=== PATIENT | male | born 1945 | race Caucasian/White ===

== ENCOUNTER 2018-05-18 06:38 | Inpatient (IN) | payer OTHER ==
[2018-05-18] MEDS ORDERED: NITROGLYCERIN 1 GM PKT TD ONE (06:39)
[2018-05-18] MEDS ORDERED: ALBUTEROL 2.5 MG/3 ML NEB SOL ONE (06:41)
[2018-05-18] MEDS ORDERED: NA CHLORIDE 0.9% 1,000 ML ONE (06:42)
[2018-05-18] MEDS ORDERED: IPRATROPIUM BROM 0.5MG/2.5ML ONE (06:42)
[2018-05-18] MEDS ORDERED: FUROSEMIDE 40 MG/4 ML VIAL ONE (06:42)
[2018-05-18] MEDS ORDERED: MORPHINE 4 MG/ML SYR ONE (06:42)
[2018-05-18] MEDS ORDERED: RSI MEDICATION KIT IV ONE (06:43)
[2018-05-18] MEDS ORDERED: ONDANSETRON 4 MG/2 ML VIAL ONE (06:43)
[2018-05-18] MEDS ORDERED: ASPIRIN 81 MG CHEWABLE TABLET ONE (06:43)
[2018-05-18] MEDS ORDERED: Nicardipine/NS 25 MG/250 ML KIT IV ONE (06:51)
[2018-05-18 07:21] LABS: Arterial Blood Carboxyhemoglob 0.7 % (0-1.5); Blood Gas Oxyhemoglobin 89.4 % (94-97)
[2018-05-18 07:23] LABS: Absolute Lymphocytes (CBC) 2.5 K/uL (0.7-4.9); Absolute Monocytes 0.6 K/uL (0.1-1.3); Basophils % 0.7 % (0-1.3); Eosinophils % 0.6 % (0-4.4); Hematocrit 47.1 % (39.6-49.0); Lymphocytes % 30.3 % (15.3-44.8); MCH 29.7 pg (27.0-35.0); MPV 11.5 fL (7.6-11.3); Monocytes % 7.1 % (3.3-12.3); RBC Red Blood Cell Count 5.24 M/uL (4.33-5.43)
[2018-05-18 07:27] LABS: Protime INR 1.1
[2018-05-18 07:38] LABS: Albumin 3.7 g/dL (3.4-5.0); Bilirubin Direct 0.3 mg/dL (0-0.2); CKMB Creatine Kinase MB 1.9 ng/mL (0.3-3.6); Magnesium 2.7 mg/dL (1.8-2.4); Potassium 3.7 mmol/L (3.5-5.1); Protein, Total 7.5 g/dL (6.4-8.2)
--- NOTE | 2018-05-18 08:05 | EDPHYS ---
Physician Documentation [facility] Name: Mumtaz Gonzales Age: 72 yrs Sex: Male : 1945 Arrival Date: 05/18/2018 Time: 06:46 Bed 3 Private MD: ED Physician Mack Orozco HPI: 05/18 06:49 This 72 yrs old Male presents to ER via Unassigned with complaints of SOB. snw 06:49 The patient has shortness of breath at rest. Onset: The symptoms/episode began/occurred snw 4 day(s) ago, and became worse this morning. Duration: The symptoms are continuous. The patient's shortness of breath is aggravated by talking, is alleviated by nothing. Associated signs and symptoms: Pertinent positives: chest pain, diaphoresis, nausea. Severity of symptoms: At their worst the symptoms were incapacitating in the emergency department the symptoms are unchanged. The patient has experienced similar episodes in the past. The patient has been recently seen by a physician: with similar presenting complaints. Intubated one month ago. Historical: - Allergies: 07:13 NKDA; bb - Home Meds: 08:10 atorvastatin 80 mg Oral tab 1 tab once daily [Active]; carvedilol 25 mg oral tab daily sv [Active]; valsartan 80 mg Oral tab 1 tab once daily [Active]; Lasix 80 mg Oral tab 1 tab 2 times per day [Active]; - PMHx: 07:13 CHF; COPD; Hyperlipidemia; Myocardial infarction; bb - Immunization history:: Adult Immunizations unknown. - Ebola Screening: : No symptoms or risks identified at this time. - Social history:: Smoking status: Patient/guardian denies using tobacco. ROS: 06:49 Eyes: Negative for injury, pain, redness, and discharge, ENT: Negative for injury, snw pain, and discharge, Neck: Negative for injury, pain, and swelling. 06:49 Abdomen/GI: Negative for abdominal pain, nausea, vomiting, diarrhea, and constipation, Back: Negative for injury and pain, : Negative for injury, bleeding, discharge, and swelling, MS/Extremity: Negative for injury and deformity. 06:49 Neuro: Negative for headache, weakness, numbness, tingling, and seizure, Psych: Negative for depression, anxiety, suicide ideation, homicidal ideation, and hallucinations. 06:49 Constitutional: Positive for malaise. 06:49 Cardiovascular: Positive for a. fib with RVR, chest pain. 06:49 Respiratory: Positive for shortness of breath, at rest. 06:49 Skin: Positive for diaphoresis. Exam: 06:49 Head/Face: Normocephalic, atraumatic. Eyes: Pupils equal round and reactive to light, snw extra-ocular motions intact. Lids and lashes normal. Conjunctiva and sclera are non-icteric and not injected. Cornea within normal limits. Periorbital areas with no swelling, redness, or edema. ENT: Nares patent. No nasal discharge, no septal abnormalities noted. Tympanic membranes are normal and external auditory canals are clear. Oropharynx with no redness, swelling, or masses, exudates, or evidence of obstruction, uvula midline. Mucous membranes moist. Neck: Trachea midline, no thyromegaly or masses palpated, and no cervical lymphadenopathy. Supple, full range of motion without nuchal rigidity, or vertebral point tenderness. No Meningismus. Chest/axilla: Normal chest wall appearance and motion. Nontender with no deformity. No lesions are appreciated. 06:49 Abdomen/GI: Soft, non-tender, with normal bowel sounds. No distension or tympany. No guarding or rebound. No evidence of tenderness throughout. 06:49 Back: No spinal tenderness. No costovertebral tenderness. Full range of motion. 06:49 Constitutional: The patient appears anxious, obese, in obvious distress, obviously ill, pale, uncomfortable. 06:49 Cardiovascular: Rate: tachycardic, Rhythm: irregularly irregular, Heart sounds: normal. 06:49 Respiratory: severe repiratory distress is noted, Respirations: labored breathing, accessory muscle usage, paradoxical chest movement, prolonged exhalation, intercostal retractions, shallow respirations, that is severe. 06:49 Abdomen/GI: Inspection: obese Bowel sounds: diminished. 06:49 Skin: Appearance: Color: dusky, Temperature: cool, Moisture: diaphoretic, petechiae, not noted, diaphoresis is noted. 06:49 Neuro: Mentation: obtunded second to distress, seizure activity, is not displayed by the patient. Vital Signs: 06:40 BP 223 / 116; Pulse 114; Resp 36; Pulse Ox 92% on CPAP; bb 07:03 BP 168 / 80; Pulse 95; Pulse Ox 91% on 100% BiPAP; sv 07:05 BP 163 / 82; Pulse 96; Resp 26; Pulse Ox 91% on 100% BiPAP; sv 07:10 BP 163 / 77; Pulse 95; Resp 23; Pulse Ox 91% on 100% BiPAP; sv 07:25 BP 130 / 73; Pulse 97; Resp 24; Pulse Ox 91% on 100% BiPAP; sv 07:32 Temp 96.9(A); sv 07:45 BP 117 / 56; Pulse 98; Resp 24; Pulse Ox 95% on 100% BiPAP; sv 08:27 BP 98 / 64; Pulse 100; Resp 24; Pulse Ox 95% on 100% BiPAP; sv 08:35 BP 112 / 62; Pulse 101; Resp 24; Pulse Ox 96% on BiPAP; tw2 08:59 BP 122 / 69; Pulse 98; Resp 24; Pulse Ox 96% on BiPAP; tw2 09:15 BP 110 / 79; Pulse 100; Pulse Ox 96% on 100% BiPAP; sv 09:23 Pulse Ox 94% on 50% BiPAP; sv 09:45 BP 105 / 74; Pulse 86; Resp 22; Pulse Ox 94% on BiPAP; tw2 10:07 Pulse 88; Resp 24; Pulse Ox 95% on 50% BiPAP; sv 10:28 BP 103 / 67; Pulse 82; Resp 15; Pulse Ox 95% on 50% BiPAP; sv 09:23 15/8, rate-12. Setting changed by Suri from RT sv MDM: 06:55 Data reviewed: vital signs, nurses notes. Data interpreted: Pulse oximetry: on Bipap is snw 91 %. Interpretation: hypoxia. Plan: will plan to intubate. Counseling: I had a detailed discussion with the patient and/or guardian regarding: the historical points, exam findings, and any diagnostic results supporting the discharge/admit diagnosis, the presence of at least one elevated blood pressure reading (>120/80) during this emergency department visit, lab results, radiology results, the need for further work-up and treatment in the hospital. Response to treatment: the patient's symptoms have mildly improved after treatment. 06:58 Patient medically screened. snw 07:07 ED course: pt more alert, eyes open, responsive to questions, no diaphoresis. snw 08:02 Physician consultation: Twin Greco DO was called at 07:45, was contacted at 07:45, snw regarding admission, to the ICU. 05/18 06:49 Order name: Basic Metabolic Panel; Complete Time: 07:38 snw 05/18 06:49 Order name: CBC with Diff; Complete Time: 07:36 snw 05/18 06:49 Order name: Ckmb; Complete Time: 07:38 snw 05/18 06:49 Order name: CPK; Complete Time: 07:38 snw 05/18 06:49 Order name: LFT's; Complete Time: 07:38 snw 05/18 06:49 Order name: Magnesium; Complete Time: 07:38 snw 05/18 06:49 Order name: NT PRO-BNP; Complete Time: 07:38 snw 05/18 06:49 Order name: PT-INR; Complete Time: 07:36 snw 05/18 06:49 Order name: Ptt, Activated; Complete Time: 07:36 snw 05/18 06:49 Order name: Troponin (emerg Dept Use Only); Complete Time: 07:45 snw 05/18 06:49 Order name: Blood Culture Adult (2) snw 05/18 06:55 Order name: TS; Complete Time: 08:56 snw 05/18 06:55 Order name: TSH; Complete Time: 08:02 snw 05/18 07:20 Order name: ABG Arterial Blood Gas; Complete Time: 07:36 EDMS 05/18 06:49 Order name: XRAY Chest (1 view); Complete Time: 09:42 snw 05/18 06:49 Order name: BIPAP snw 05/18 07:21 Order name: Lactate; Complete Time: 08:02 bb 05/18 07:21 Order name: Lactate snw 05/18 07:21 Order name: Procalcitonin; Complete Time: 08:10 snw 05/18 08:36 Order name: Urine Dipstick--Ancillary (enter results); Complete Time: 08:56 bd 05/18 08:49 Order name: ABO/RH no charge; Complete Time: 08:56 EDMS 05/18 09:06 Order name: Chest Single View XRAY snw 05/18 09:52 Order name: T4 Free; Complete Time: 09:52 EDMS 05/18 10:57 Order name: RAD; Complete Time: 10:58 EDMS 05/18 06:49 Order name: EKG; Complete Time: 06:50 snw 05/18 06:49 Order name: Cardiac monitoring; Complete Time: 07:21 snw 05/18 06:49 Order name: EKG - Nurse/Tech; Complete Time: 07:55 snw 05/18 06:49 Order name: IV Saline Lock; Complete Time: 07:13 snw 05/18 06:49 Order name: Labs collected and sent; Complete Time: 07:13 snw 05/18 06:49 Order name: O2 Per Protocol; Complete Time: 07:13 snw 05/18 06:49 Order name: O2 Sat Monitoring; Complete Time: 07:13 snw 05/18 06:49 Order name: Urine Dipstick-Ancillary (obtain specimen); Complete Time: 08:29 snw 05/18 07:38 Order name: Montelongo; Complete Time: 08:29 snw 05/18 07:38 Order name: Misc. Order: wean cardene; Complete Time: 07:52 snw Administered Medications: Discontinued: Cardene 5 mg/hr IV at calculated rate continuous; 5mg/hr 06:45 Drug: Lasix 40 mg Route: IVP; Site: left wrist; bb 07:54 Follow up: Response: No adverse reaction sv 06:45 Drug: Zofran 4 mg Route: IVP; Site: left wrist; bb 07:53 Follow up: Response: No adverse reaction sv 06:46 Drug: Albuterol - atroVENT (3:1) (2.5 mg - 0.5 mg) 3 ml Route: Nebulizer; bb 07:54 Follow up: Response: No adverse reaction sv 06:47 Drug: morphine 4 mg Route: IVP; Site: left wrist; bb 07:54 Follow up: Response: No adverse reaction sv 06:49 Drug: Cardene 5 mg/hr Route: IV; Rate: calculated rate; Site: left wrist; bb 07:31 Follow up: Rate change 2.5 mg/hr sv 06:50 Drug: Nitro-Bid Ointment 2 % 1 inches Route: Transdermal; Site: anterior chest wall; aa1 06:58 CANCELLED (Duplicate Order): Cardene 5 mg/hr IV at Titrate continuous; 5mg/hr bb 07:21 Drug: Aspirin Chewable Tablet 324 mg Route: PO; bb 07:54 Follow up: Response: No adverse reaction sv Disposition: 06:55 Critical Care:. snw Disposition: 05/18/18 08:04 Hospitalization ordered by Twin Greco for Inpatient Admission. Preliminary diagnosis are Respiratory failure, unspecified with hypoxia, Unspecified systolic (congestive) heart failure. - Bed requested for Intensive Care Unit. - Status is Inpatient Admission. ss - Condition is Stable. - Problem is an acute exacerbation. - Symptoms have improved. UTI on Admission? No Critical care time excluding procedures: 06:55 Critical care time: Bedside Care: 20 minutes, Consultation: 20 minutes. Total time: 40 snw minutes Signatures: Dispatcher [employer] Franny House RN Erika Yusuf RN RN dw Kern, Alissa, RN RN aa1 Arcelia Rick, RAW MATERIAL HANDLER-C RAW MATERIAL HANDLER-Csnw Miranda Spaulding RN RN bb Hunter Tate MD MD rn [facility] Network[facility] garcia RN RN Corrections: (The following items were deleted from the chart) 06:58 06:55 Cardene 5 mg/hr IV at Titrate continuous; 5mg/hr ordered. snw bb 10:15 08:04 Hospitalization Ordered by Twin Greco DO for Inpatient Admission. Preliminary dw diagnosis is Respiratory failure, unspecified with hypoxia; Unspecified systolic (congestive) heart failure. Bed requested for Intensive Care Unit. Status is Inpatient Admission. Condition is Stable. Problem is an acute exacerbation. Symptoms have improved. UTI on Admission? No. snw 11:03 10:15 05/18/2018 08:04 Hospitalization Ordered by Twin Greco DO for Inpatient ss Admission. Preliminary diagnosis is Respiratory failure, unspecified with hypoxia; Unspecified systolic (congestive) heart failure. Bed requested for Intensive Care Unit. Status is Inpatient Admission. Condition is Stable. Problem is an acute exacerbation. Symptoms have improved. UTI on Admission? No. dw
--- NOTE | 2018-05-18 08:05 | ER ---
Nurse's Notes [facility] Name: Mumtaz Gonzales Age: 72 yrs Sex: Male : 1945 Arrival Date: 05/18/2018 Time: 06:46 Bed 3 Private MD: Diagnosis: Respiratory failure, unspecified with hypoxia;Unspecified systolic (congestive) heart failure Presentation: 05/18 06:45 Presenting complaint: EMS states: they were toned out for report of pt having SOB for bb several days worsening today, on their arrival pt's room air sat was 92% but on ride to ED pt worsened and they placed him on bipap. Transition of care: patient was not received from another setting of care. Onset of symptoms was May 18, 2018. Risk Assessment: Do you want to hurt yourself or someone else? Patient reports no desire to harm self or others. Initial Sepsis Screen: Does the patient meet any 2 criteria? RR > 20 per min. HR > 90 bpm. Yes Does the patient have a suspected source of infection? No. Patient's initial sepsis screen is negative. Care prior to arrival: Medication(s) given: Albuterol Neb x 1, Atrovent Neb x 1, solu-medrol 125 mg IV initiated. 20 GA, in the left antecubital area, Oxygen administered. via CPAP or BiPAP. 06:45 Method Of Arrival: EMS: [facility] 06:45 Acuity: SHERLY 1 bb Historical: - Allergies: 07:13 NKDA; bb - Home Meds: 08:10 atorvastatin 80 mg Oral tab 1 tab once daily [Active]; carvedilol 25 mg oral tab daily sv [Active]; valsartan 80 mg Oral tab 1 tab once daily [Active]; Lasix 80 mg Oral tab 1 tab 2 times per day [Active]; - PMHx: 07:13 CHF; COPD; Hyperlipidemia; Myocardial infarction; bb - Immunization history:: Adult Immunizations unknown. - Ebola Screening: : No symptoms or risks identified at this time. - Social history:: Smoking status: Patient/guardian denies using tobacco. Screenin:38 Abuse screen: Denies threats or abuse. Denies injuries from another. Nutritional sv screening: No deficits noted. Tuberculosis screening: No symptoms or risk factors identified. Fall Risk No fall in past 12 months (0 pts). No secondary diagnosis (0 pts). IV access (20 points). Ambulatory Aid- None/Bed Rest/Nurse Assist (0 pts). Gait- Normal/Bed Rest/Wheelchair (0 pts) Mental Status- Oriented to own ability (0 pts). Total Parker Fall Scale indicates No Risk (0-24 pts). Assessment: 06:50 Reassessment: RT, MD, and TRANSCRIPTION MANAGER at bedside with pt. Pt placed on BiPAP. Attempting to gain aa1 IV access on pt. General: Appears distressed, uncomfortable, Behavior is cooperative, appropriate for age. Neuro: Level of Consciousness is awake, alert, obeys commands. Respiratory: Respiratory effort is labored, gasping, Respiratory pattern is tachypnea. Derm: Skin is diaphoretic, Skin is pale. 07:20 General: Appears uncomfortable, obese, Behavior is calm, cooperative, appropriate for sv age. Pain: Denies pain. Neuro: Level of Consciousness is awake, alert, obeys commands, Oriented to person, place, time, situation, Moves all extremities. Cardiovascular: Heart tones S1 S2 present Patient's skin is warm and dry. Pulses are 3+ in right radial artery and left radial artery Edema is 3+ to left midcalf, left ankle, right midcalf and right ankle pitting to left midcalf, left ankle, right midcalf and right ankle. Respiratory: Airway is patent Respiratory effort is labored, Respiratory pattern is tachypnea Breath sounds are clear bilaterally. Breath sounds are diminished in left posterior lower lobe and right posterior lower lobe. Derm: Skin is clammy, Skin is pale. 07:49 Reassessment: Patient and/or family updated on plan of care and expected duration. Pain sv level reassessed. Patient is alert, oriented x 3, equal unlabored respirations, skin warm/dry/pink. Patient states feeling better. Patient states symptoms have improved. 07:55 Reassessment: Nitropaste removed. sv 08:45 Reassessment: Dr Greco at bedside. sv 09:25 Reassessment: Patient and/or family updated on plan of care and expected duration. Pain sv level reassessed. Patient is alert, oriented x 3, equal unlabored respirations, skin warm/dry/pink. Patient states feeling better. Patient states symptoms have improved. 09:29 Reassessment: Repeat chest xray being done. sv Vital Signs: 06:40 BP 223 / 116; Pulse 114; Resp 36; Pulse Ox 92% on CPAP; bb 07:03 BP 168 / 80; Pulse 95; Pulse Ox 91% on 100% BiPAP; sv 07:05 BP 163 / 82; Pulse 96; Resp 26; Pulse Ox 91% on 100% BiPAP; sv 07:10 BP 163 / 77; Pulse 95; Resp 23; Pulse Ox 91% on 100% BiPAP; sv 07:25 BP 130 / 73; Pulse 97; Resp 24; Pulse Ox 91% on 100% BiPAP; sv 07:32 Temp 96.9(A); sv 07:45 BP 117 / 56; Pulse 98; Resp 24; Pulse Ox 95% on 100% BiPAP; sv 08:27 BP 98 / 64; Pulse 100; Resp 24; Pulse Ox 95% on 100% BiPAP; sv 08:35 BP 112 / 62; Pulse 101; Resp 24; Pulse Ox 96% on BiPAP; tw2 08:59 BP 122 / 69; Pulse 98; Resp 24; Pulse Ox 96% on BiPAP; tw2 09:15 BP 110 / 79; Pulse 100; Pulse Ox 96% on 100% BiPAP; sv 09:23 Pulse Ox 94% on 50% BiPAP; sv 09:45 BP 105 / 74; Pulse 86; Resp 22; Pulse Ox 94% on BiPAP; tw2 10:07 Pulse 88; Resp 24; Pulse Ox 95% on 50% BiPAP; sv 10:28 BP 103 / 67; Pulse 82; Resp 15; Pulse Ox 95% on 50% BiPAP; sv 09:23 15/8, rate-12. Setting changed by Suri from RT sv ED Course: 06:40 Arm band placed on Patient placed in an exam room, on a stretcher, on awake overnight monitor, bb on pulse oximetry. 06:45 Missed attempt(s): 18 gauge in right antecubital area. Bleeding controlled, band aid aa1 applied, catheter tip intact. 06:46 Patient arrived in ED. bb 06:50 Triage completed. bb 06:50 Missed attempt(s): 18 gauge in right EJ by Dr. Orozco. aa1 06:50 Missed attempt(s): 20 gauge in right antecubital area. lp1 06:55 Initial lab(s) drawn, by me. Inserted saline lock: 20 gauge in left antecubital area, aa1 using aseptic technique. Blood collected. 06:57 Hunter Tate MD is Attending Physician. snw 06:57 Mack Orozco MD is Attending Physician. snw 06:58 Arcelia Rick FNP-C [facility]. snw 07:00 X-ray completed. Portable x-ray completed in exam room. Patient tolerated procedure jb2 well. 07:00 Report given to Kelsey Sumner RN \T\ Franny Langston RN. aa1 07:05 XRAY Chest (1 view) In Process Unspecified. EDMS 07:18 Initial lab(s) drawn, by me, sent to lab. Inserted saline lock: 20 gauge in right sv forearm, using aseptic technique. Blood collected. Flushed right forearm with 5 ml normal saline. 07:18 Patient has correct armband on for positive identification. Bed in low position. Call sv light in reach. Side rails up X2. youth nutritional monitor on. Pulse ox on. NIBP on. Door closed. Head of bed elevated. 07:29 Franny Langston, TARIK is Primary Nurse. sv 07:53 Lactate Sent. sv 07:53 BIPAP Sent. sv 08:02 Twin Greco DO is Hospitalizing Provider. snw 08:05 Montelongo cath inserted, using sterile technique, 16 Fr., by me, balloon inflated, to em1 gravity drainage, clamped. urine specimen collected. other Montelongo catheter clamped after pt voided 800 mL of urine. 09:36 X-ray completed. Portable x-ray completed in exam room. Patient tolerated procedure tm4 well. 10:45 No provider procedures requiring assistance completed. Patient admitted, IV remains in sv place. intact. Administered Medications: Discontinued: Cardene 5 mg/hr IV at calculated rate continuous; 5mg/hr 06:45 Drug: Lasix 40 mg Route: IVP; Site: left wrist; bb 07:54 Follow up: Response: No adverse reaction sv 06:45 Drug: Zofran 4 mg Route: IVP; Site: left wrist; bb 07:53 Follow up: Response: No adverse reaction sv 06:46 Drug: Albuterol - atroVENT (3:1) (2.5 mg - 0.5 mg) 3 ml Route: Nebulizer; bb 07:54 Follow up: Response: No adverse reaction sv 06:47 Drug: morphine 4 mg Route: IVP; Site: left wrist; bb 07:54 Follow up: Response: No adverse reaction sv 06:49 Drug: Cardene 5 mg/hr Route: IV; Rate: calculated rate; Site: left wrist; bb 07:31 Follow up: Rate change 2.5 mg/hr sv 06:50 Drug: Nitro-Bid Ointment 2 % 1 inches Route: Transdermal; Site: anterior chest wall; aa1 06:58 CANCELLED (Duplicate Order): Cardene 5 mg/hr IV at Titrate continuous; 5mg/hr bb 07:21 Drug: Aspirin Chewable Tablet 324 mg Route: PO; bb 07:54 Follow up: Response: No adverse reaction sv Output: 10:28 Urine: 375ml (Montelongo); Total: 375ml. sv Outcome: 08:04 Decision to Hospitalize by Provider. snw 10:46 Admitted to ICU accompanied by nurse, accompanied by tech, via stretcher, room 2, with sv oxygen, on monitor, with chart, Report called to Jaqui MONTANEZ 10:46 Condition: stable 10:46 Instructed on the need for admit. 11:03 Patient left the ED. ss Signatures: Dispatcher [employer] EDMS Franny Langston RN Shannon Almaguer RN RN aa1 Arcelia Rick, GOLF PROFESSIONAL-C GOLF PROFESSIONAL-Alliw Duran Loving jb2 Dalila Jasmine tm4 Miranda Spaulding RN RN bb Martinez, Eric em1 Lu Askew RN RN Julia Soni RN RN lp1 Kelsey Sumner RN RN tw2 Corrections: (The following items were deleted from the chart) 07:15 07:13 BP 223 / 116; Pulse 114bpm; Resp 36bpm; Pulse Ox 92% CPAP; bb bb 07:16 07:13 Triage completed. bb bb 07:58 07:20 Cardiovascular: Heart tones S1 S2 present Patient's skin is warm and dry. Pulses sv are 3+ in right radial artery and left radial artery sv
[2018-05-18 08:42] LABS: Urine Blood NEGATIVE (NEG); Urine Glucose NEGATIVE (NEG); Urine Protein 1+ (NEG); Urine Specific Gravity 1.015 (1.005-1.030); Urine pH 5.5 (5.0-7.0)
[2018-05-18] MEDS ORDERED: ONDANSETRON 4 MG/2 ML VIAL IV PRN (08:58)
[2018-05-18] MEDS ORDERED: IPRATROPIUM BROM 0.5MG/2.5ML NEB PRN (08:58)
[2018-05-18] MEDS ORDERED: ACETAMINOPHEN 500 MG TAB PO PRN (08:58)
[2018-05-18] MEDS ORDERED: ALBUTEROL 2.5 MG/3 ML NEB SOL NEB PRN ×2 (08:58→16:00)
[2018-05-18] MEDS ORDERED: ENOXAPARIN 40 MG/0.4 ML SQ SCH (09:00)
[2018-05-18] MEDS: FUROSEMIDE 40 MG/4 ML VIAL IV SCH ×2 (09:00→16:59)
--- NOTE | 2018-05-18 09:38 | RAD REPORT ---
EXAM DESCRIPTION: Valarie Single View05/18/2018 7:06 am CLINICAL HISTORY: Shortness of breath COMPARISON: October 2017 FINDINGS: Moderate bilateral patchy alveolar lung opacities are seen. The heart is mildly to modera tely enlarged. Small pleural effusions are suspected. IMPRESSION: Moderate bilateral patchy alveolar lung opacities probably represent pulmonary edema. Pn eumonia can also have this appearance as well.
[2018-05-18] MEDS ORDERED: NOREPINEPHRINE 4 MG in D5W 250 ML IV PRN (10:43)
--- NOTE | 2018-05-18 10:55 | P.HP ---
Certification for Inpatient Patient admitted to: Inpatient With expected LOS: >2 Midnights Patient will require the following post-hospital care: None Practitioner: I am a practitioner with admitting privileges, knowledge of patient current condition, hospital course, and medical plan of care. Services: Services provided to patient in accordance with Admission requirements found in Title 42 Section 412.3 of the Code of Federal Regulations Patient History Date of Service: 05/18/18 Primary Care Provider: PR Kari Reason for admission: Shortness of breath History of Present Illness: 72-year-old male presented to emergency room with shortness of breath. Patient was diaphoretic. Patient required BiPAP by EMS. EMS also gave the patient Lasix, aspirin, morphine. When the patient arrived to the ER the patient was hypertensive with a blood pressure of 223/116. Heart rate was 114. Patient was placed on BiPAP patient was immediately started on morphine and Cardene drip. Patient remained stable and improved with diuresis. It was reassess. Patient was able to get off Cardene in the emergency room. The social removed. Blood pressures improved to 1 17/56, heart rate 98. Respirations were at 24. He was satting 95% with BiPAP. Patient had reported some increased shortness of breath over the last several days. This led to this exacerbation. History of CHF, COPD, atrial fibrillation. I was asked to admit the patient. Patient currently stable this time. Patient will go to ICU. Patient denies any fever, chills. No significant cough congestion noted. Allergies No Known Allergies Allergy (Unverified 05/18/18 09:12) Home medications list reviewed: Yes Home Medications: Aspirin 1 tab PO DAILY 07/25/17 Rivaroxaban [Xarelto] 1 tab PO DAILY AT SUPPER 07/25/17 Amiodarone HCl [Pacerone] 1 tab PO DAILY #30 tablet 07/31/17 Atorvastatin Calcium [Lipitor] 80 mg PO DAILY 11/21/17 Carvedilol [Coreg*] 12.5 mg PO BID 11/21/17 Furosemide [Lasix] 80 mg PO BID 11/21/17 Valsartan [Diovan] 80 mg PO DAILY 11/21/17 - Past Medical/Surgical History Diabetic: No -: Congestive heart failure; ejection fraction of 25% -: COPD -: Hypertension -: Atrial fibrillation -: Cyst on the back,neck,chest -: Former tobacco use -: Morbid obesity Past Surgical History: Patient denies surgical history Psychosocial/ Personal History: Patient lives by himself - Family History Family History: Reviewed- Non-Contributory - Family History Father -: Other (see notes) Notes: TB - Social History Smoking Status: Former smoker Alcohol use: No CD- Drugs: No Caffeine use: Yes Place of Residence: Home Review of Systems General: Weakness, Malaise, As per HPI Eyes: Unremarkable ENT: Unremarkable Respiratory: Shortness of Breath, SOB with Excertion, As per HPI Cardiovascular: Paroxysmal Noc. Dyspnea, Edema Gastrointestinal: Unremarkable Genitourinary: Unremarkable Musculoskeletal: Unremarkable Integumentary: As per HPI Neurological: Unremarkable Lymphatics: Unremarkable Physical Examination - Physical Exam General: Alert, In no apparent distress, Oriented x3, Cooperative HEENT: Atraumatic, Normocephalic, Mucous membr. moist/pink Neck: Supple, No Thyromegaly Respiratory: Crackles/rales (Bilateral) Cardiovascular: Irregular heart rate/rhythm (Atrial fib) Gastrointestinal: Normal bowel sounds, Soft and benign, Non-distended, No ascites, No tenderness, No masses, No rebound, Other (Morbid obesity) Musculoskeletal: No erythema, No tenderness, No warmth Integumentary: No erythema, No warmth, No cyanosis, Tenderness/swelling (1 to 2 + pitting edema to the lower extremity bilateral) Neurological: Normal speech, Normal strength at 5/5 x4 extr, Normal tone, Normal affect - Studies Laboratory Data (last 24 hrs) 05/18/18 06:55: PT 13.0 H, INR 1.10, APTT 23.7 L 05/18/18 06:55: WBC 8.1, Hgb 15.6, Hct 47.1, Plt Count 225 05/18/18 06:55: Sodium 142, Potassium 3.7, BUN 22 H, Creatinine 1.50 H, Glucose 286 H, Magnesium 2.7 H, Total Bilirubin 1.0, AST 17, ALT 40, Alkaline Phosphatase 109 Assessment and Plan - Problems (Diagnosis) (1) Atrial fibrillation Current Visit: Yes Status: Chronic Plan: Will continue with rate control medication. Will provide DVT prophylaxis. Will check to see if the patient taking chronic anti coagulation therapy. Cardiology has been consulted to further assess Qualifiers: Atrial fibrillation type: chronic Qualified Code(s): I48.2 - Chronic atrial fibrillation (2) GERD (gastroesophageal reflux disease) Current Visit: Yes Status: Chronic Plan: Continue with PPI. Qualifiers: Esophagitis presence: esophagitis presence not specified Qualified Code(s) : K21.9 - Gastro-esophageal reflux disease without esophagitis (3) Dyspnea Onset Date: 07/27/17 Current Visit: No Status: Acute Plan: CHF and COPD exacerbation. Continue with diuresis. Will place on fluid restriction. Cardiology and pulmonology have been consulted. Will wean off BiPAP. Compliance with medication will be addressed Qualifiers: Dyspnea type: shortness of breath Qualified Code(s): R06.02 - Shortness of breath; R06.00 - Dyspnea, unspecified; R06.01 - Orthopnea (4) Pulmonary edema Onset Date: 05/11/17 Current Visit: No Status: Acute Plan: Continue as above. Will continue with diuresis. Qualifiers: Chronicity: acute Qualified Code(s): J81.0 - Acute pulmonary edema (5) CHF (congestive heart failure) Onset Date: 07/27/17 Current Visit: No Status: Acute Plan: Patient with acute on chronic CHF. Will continue with diuresis. Continue with Lasix. Cardiology consulted. Qualifiers: Qualified Code(s): I50.23 - Acute on chronic systolic (congestive) heart failure (6) COPD (chronic obstructive pulmonary disease) Onset Date: 07/27/17 Current Visit: No Status: Acute Plan: Acute COPD exacerbation. Will continue with medication Qualifiers: COPD type: COPD with acute exacerbation Qualified Code(s): J44.1 - Chronic obstructive pulmonary disease with (acute) exacerbation (7) Diabetes mellitus Onset Date: 07/27/17 Current Visit: No Status: Chronic Plan: Will check A1c. Will continue sliding scale. Qualifiers: Diabetes mellitus type: type 2 Diabetes mellitus detention insulin use: with detention use Diabetes mellitus complication status: without complication Qualified Code(s): E11.9 - Type 2 diabetes mellitus without complications; Z79.4 - residential (current) use of insulin; Z79.4 - residential ( current) use of insulin; Z79.4 - residential (current) use of insulin; Z79.4 - terminal operations manager (current) use of insulin (8) Hypertension Onset Date: 05/11/17 Current Visit: No Status: Chronic Plan: Continue medication. Will obtain and verify home medication Qualifiers: Hypertension type: essential hypertension Qualified Code(s): I10 - Essential (primary) hypertension (9) Obesity Onset Date: 07/27/17 Current Visit: No Status: Chronic Plan: Will assess BM Qualifiers: Obesity type: due to excess calories Obesity classification: adult class 1 (BMI 30 ? 34.9) Serious obesity comorbidity presence: with serious comorbidity Body mass index: BMI 30.0-30.9 (10) Chronic renal disease Current Visit: Yes Status: Acute Plan: Acute on chronic renal disease. Will monitor closely. Nephrology consulted Qualifiers: Chronic kidney disease stage: stage 3 (moderate) Qualified Code(s): N18.3 - Chronic kidney disease, stage 3 (moderate) (11) DENEEN (obstructive sleep apnea) Current Visit: Yes Status: Suspected Plan: Will have Pulmonary assess. Discharge Plan: Home Plan to discharge in: Greater than 2 days - Advance Directives Does patient have a Living Will: No Does patient have a Durable POA for Healthcare: No - Code Status/Comfort Care Code Status Assessed: Yes Time Spent Managing Pts Care (In Minutes): 55
--- NOTE | 2018-05-18 10:57 | RAD REPORT ---
EXAM DESCRIPTION: RAD - Chest Single View - 05/18/2018 9:38 am CLINICAL HISTORY: Progressive shortness of breath, congestion COMPARISON: May 18 TECHNIQUE: AP portable chest image was obtained 0925 hours . FINDINGS: Bilateral lung base pleural and parenchymal opacification present without substantial espinosa ge over the interval. Central vasculature and lung markings remain prominent. Heart size also slightl y enlarged. Trachea is midline. No pneumothorax. No acute aortic findings suspected. IMPRESSION: Bilateral lower lung field pleural and parenchymal opacification not significantly diffe rent from exam earlier in the day.
[2018-05-18] MEDS ORDERED: D50W 25 GM/50 ML SYRINGE IV PRN (11:03)
[2018-05-18] MEDS ORDERED: GLUCAGON 1 MG/VIAL IM PRN (11:03)
[2018-05-18] MEDS: INSULIN -REGULAR HUMAN 50 UNIT/0.5 ML ML SQ SCH ×3 (11:30→20:18)
--- NOTE | 2018-05-18 12:14 | EKG ---
Test Date: 2018-05-18 Test Time: 07:47:20 Interlocker Maintainer: LIZABETH MEASUREMENT RESULTS: Intervals: Rate: 97 PA: 144 QRSD: 128 QT: 456 QTc: 579 Roxie: P: 9 PA: 144 QRS: 9 T: 105 INTERPRETIVE STATEMENTS: Sinus rhythm with occasional premature ventricular complexes Nonspecific intraventricular block T wave abnormality, consider lateral ischemia Abnormal ECG Compared to ECG 11/20/2017 21:28:05 T-wave abnormality now present Possible ischemia now present Junctional rhythm no longer present Left anterior fascicular block no longer present Myocardial infarct finding no longer present Prolonged QT interval no longer present Electronically Signed On 05-18-18 12:11:49 CDT by Geo Cornelius
[2018-05-18 15:14] LABS: CKMB Creatine Kinase MB 3.4 ng/mL (0.3-3.6)
[2018-05-18] MEDS: METHYLPREDNISOLONE 40 MG INJ IV SCH (16:59)
[2018-05-18] MEDS: CARVEDILOL 25 MG TAB PO SCH (17:00)
--- NOTE | 2018-05-18 20:04 | RAD REPORT ---
EXAM DESCRIPTION: US - Renal Ultrasound-Complete - 05/18/2018 7:37 pm CLINICAL HISTORY: Acute kidney injury, chronic renal disease COMPARISON: April 2017 ultrasound FINDINGS: The right kidney measures 11.6 x 5.1 x 4.8 cm. The left kidney measures 12.0 x 6.2 x 5.0 cm. Cortical thickness is normal. Mild bilateral increased cortical echogenicity is present most like ly medical renal disease. No hydronephrosis or suspicious renal mass. Montelongo catheter is in place. Partially filled bladder shows no gross abnormality. IMPRESSION: No hydronephrosis or suspicious renal mass. Mild bilateral medical renal disease evident.
[2018-05-18] MEDS: ARFORMOTEROL TARTRATE 15 MCG/2 ML VIAL.NEB NEB SCH (20:16)
[2018-05-18 20:37] LABS: UR PROTEIN < 5 mg/dL (<11.9)
[2018-05-19] MEDS: METHYLPREDNISOLONE 40 MG INJ IV SCH ×3 (01:29→17:31)
--- NOTE | 2018-05-19 01:33 | CON ---
Date of Consultation: 05/18/2018 Reason For Consultation: Congestive heart failure. History Of Present Illness: Mr. Gonzales is a very sick man, he is 72, white male, has a history of sever e congestive heart failure, an ejection fraction was approximately 15% in July 2017 by heart veena terization and echocardiography. A cardiac catheterization on July 2017 which showed some diffuse disease in the left main, LAD, mostly distal disease and stenting of the circumflex to complete righ t coronary artery. He has a complete occlusion of his distal aorta. The case had to be done via lef t arm brachial approach. We decided he was very high risk for surgery considering his ejection fract ion, distal aortic disease, and coronary artery disease. He has been treated medically since and adrian arently has done well. He came in with a blood pressure of 223/110 and was found to be in CHF with C OPD exacerbation as well. He is improved after BiPAP and Lasix and inhalers. Initial blood gas was pO2 was 74, pCO2 was 29, and pH was 7.29 on BiPAP. He received a Cardene drip for his pressure befor e I saw him and his pressure when I saw him last was 103/67. He was in atrial fibrillation which is a chronic problem. Past Medical History: CHF, COPD, CAD, dyslipidemia, and DJD. Review of Systems: Negative. Social History: Negative. Family History: Noncontributory. Medications At Home: Diovan, Lipitor, Coreg, Lasix, and aspirin. Physical Examination: General: He was in moderate respiratory distress. Vital Signs: Stable. He was in sinus tachycardia. HEENT: Negative. Neck: Supple without any bruit, lymphadenopathy, or thyromegaly. No JVD. Chest: Revealed rales and expiratory wheezes. Cardiac: Revealed tachycardia with S3 gallops. Abdomen: Obese. Extremities: Revealed no clubbing, cyanosis, or edema with decreased pulses throughout. Laboratory Data: His BNP was 5734, troponin 0.05. Chest x-ray showed CHF. EKG showed sinus tach wi th PACs. Impression And Plan: 1.Acute exacerbation of chronic systolic congestive heart failure. 2.Acute exacerbation of chronic obstructive pulmonary disease. 3.Dyslipidemia. 4.Hypertension, poorly controlled. 5.Severe peripheral artery disease with complete occlusion of the distal aorta. 6.Severe coronary artery disease, being treated medically as he is very high risk for the surgery. I will continue the present regimen with inhalers, antibiotics, and IV Lasix. I agree with repeating an echocardiogram. I certainly do not plan to do any more invasive studies on Mr. Gonzales. We can cert ainly go up on the Coreg dose. It is felt that Entresto may be reasonable with him considering his r enal function. I am not so sure about Mr. Gonzales's compliance. I discussed the case further with Dr. Camille faulkner. SARAH/GISEL Voice ID: [id number] Report ID: [id number]
[2018-05-19 04:58] LABS: Absolute Lymphocytes (CBC) 0.4 K/uL (0.7-4.9); Absolute Monocytes 0.1 K/uL (0.1-1.3); Basophils % 0.8 % (0-1.3); Hematocrit 40.4 % (39.6-49.0); Lymphocytes % 5.7 % (15.3-44.8); MCH 29.8 pg (27.0-35.0); MCV 88.4 fL (80-100); MPV 11.1 fL (7.6-11.3); Monocytes % 1.8 % (3.3-12.3); RBC Red Blood Cell Count 4.57 M/uL (4.33-5.43)
[2018-05-19 05:29] LABS: Albumin 3.2 g/dL (3.4-5.0); Magnesium 2.6 mg/dL (1.8-2.4); Potassium 4.1 mmol/L (3.5-5.1); Protein, Total 6.4 g/dL (6.4-8.2)
[2018-05-19 05:37] LABS: Blood Morphology Comment NOT SEEN (NOT SEEN); Platelet Estimate ADEQ; Urine White Blood Cell Casts OK
[2018-05-19] MEDS: CARVEDILOL 25 MG TAB PO SCH (06:15)
--- NOTE | 2018-05-19 07:04 | RAD REPORT ---
EXAM DESCRIPTION: RAD - Chest Single View - 05/19/2018 6:08 am CLINICAL HISTORY: Shortness of breath COMPARISON: May 18 TECHNIQUE: AP portable chest image was obtained 0541 hours . FINDINGS: Left lower lung field shows slight improvement in aeration. Pleural effusion with infiltra te and/ or atelectasis in the right base has not improved. Cardiomegaly remains along with vascular e ngorgement. Trachea is in the midline. No pneumothorax. No gross bony abnormality seen. No acute aort ic findings suspected. IMPRESSION: Cardiomegaly along with vascular engorgement pleural effusion and lung base opacificatio n similar to comparison. Failure/ volume overload is favored.
[2018-05-19] MEDS: INSULIN -REGULAR HUMAN 50 UNIT/0.5 ML ML SQ SCH ×4 (07:30→21:00)
--- NOTE | 2018-05-19 08:02 | P.CNS ---
Date of Consult: 05/19/18 Primary Care Provider: [facility] Chief Complaint: Respiratory failure History of Present Illness: Patient is 72 years of age admitted with shortness of breath respiratory failure is currently on a BiPAP is also found to be hypertensive currently stable history of COPD CHF Denies any fever chills Allergies No Known Drug Allergies Allergy (Mild, Verified 05/18/18 20:17) NKA Home Medications: Atorvastatin Calcium [Lipitor] 80 mg PO DAILY 11/21/17 Carvedilol [Coreg*] 12.5 mg PO BID 11/21/17 Furosemide [Lasix] 80 mg PO BID 11/21/17 Valsartan [Diovan] 80 mg PO DAILY 11/21/17 - Past Medical/Surgical History Diabetic: No -: Congestive heart failure; ejection fraction of 25% -: COPD -: Hypertension -: Atrial fibrillation -: Cyst on the back,neck,chest -: Former tobacco use -: Morbid obesity Psychosocial/ Personal History: Patient lives by himself - Family History Father Medical History: Other (see notes) Notes: TB - Social History Smoking Status: Unknown if ever smoked Alcohol use: No CD- Drugs: No Caffeine use: Yes Place of Residence: Home Review of Systems is unable to be obtained Physical Examination Temp Pulse Resp BP Pulse Ox 97.1 F 64 13 129/71 94 05/19/18 04:00 05/19/18 07:00 05/19/18 07:00 05/19/18 07:00 05/19/18 07:00 General: Alert, Oriented x1, Cooperative HEENT: Atraumatic Neck: Supple Respiratory: Clear to auscultation bilaterally, Diminished, Friction rub Cardiovascular: Regular rate/rhythm, Normal S1 S2 Gastrointestinal: Normal bowel sounds, Soft and benign - Problems (1) Respiratory failure Onset Date: 05/11/17 Current Visit: No Status: Acute Plan: Patient is 72 years of age with a history of COPD admitted with respiratory failure he was intubated the year ago patient was hypoxic mildly hypercapnic mild acidosis chest x-ray shows cardiomegaly possible bilateral pleural effusions volume overload patient's BNP was significantly elevated echocardiogram done beginning of this year did show congestive heart failure continue with IV Lasix bronchodilators steroids had low-dose spironolactone echocardiogram is pending rule out pulmonary embolism empiric anticoagulation until pulmonary embolism has been ruled out Qualifiers: Chronicity: acute Respiratory failure complication: hypercapnia Qualified Code(s): J96.02 - Acute respiratory failure with hypercapnia
--- NOTE | 2018-05-19 08:09 | ECHO ---
HEIGHT: 5 ft 11 in WEIGHT: 231 lb 1.6 oz DATE OF STUDY: 05/18/[address]: Twin Grceo DO 2-DIMENSIONAL: YES M.MODE: YES DOPPLER: YES COLOR FLOW: YES TDS: YES PORTABLE: YES DEFINITY: BUBBLE STUDY: DIAGNOSIS: CONGESTIVE HEART FAILURE CARDIAC HISTORY: CATHERIZATION: NO SURGERY: NO PROSTHETIC VALVE: NO PACEMAKER: NO MEASUREMENTS (cm) DIASTOLIC (NORMALS) SYSTOLIC (NORMALS) IVSd 1.1 (0.6-1.2) LA Diam 4.6 (1.9-4.0) LVEF 35-40% LVIDd 4.1 (3.5-5.7) LVIDs 3.3 (2.0-3.5) %FS 20% LVPWd 1.3 (0.6-1.2) Ao Diam 3.0 (2.0-3.7) 2 DIMENSIONAL ASSESSMENT: RIGHT ATRIUM: NORMAL LEFT ATRIUM: NORMAL RIGHT VENTRICLE: NORMAL LEFT VENTRICLE: NORMAL SIZE TRICUSPID VALVE: NORMAL MITRAL VALVE: NORMAL PULMONIC VALVE: NORMAL AORTIC VALVE: NORMAL PERICARDIAL EFFUSION: NONE AORTIC ROOT: NORMAL LEFT VENTRICULAR WALL MOTION: MODERATE GLOBAL HYPOKINESIS. DOPPLER/COLOR FLOW: MILD TRICUSPID REGURGITATION COMMENTS: TECHNICALLY DIFFICULT STUDY. MODERATE GLOBAL HYPOKINESIS. EJECTION FRACTION 35-40%. LEFT ATRIAL ENLARGEMENT. MILD TRICUSPID REGURGITATION. TECHNOLOGIST: RADHA ACOSTA
[2018-05-19] MEDS: ARFORMOTEROL TARTRATE 15 MCG/2 ML VIAL.NEB NEB SCH ×2 (08:11→19:39)
[2018-05-19] MEDS: ASPIRIN EC 81 MG TAB PO SCH (08:22)
[2018-05-19] MEDS: FUROSEMIDE 40 MG/4 ML VIAL IV SCH ×2 (08:22→17:32)
[2018-05-19] MEDS: SPIRONOLACTONE 25 MG TABLET PO SCH ×2 (08:22→21:59)
[2018-05-19] MEDS ORDERED: APIXABAN 5 MG TABLET PO SCH (09:00)
--- NOTE | 2018-05-19 10:24 | RAD REPORT ---
EXAM DESCRIPTION: CT - Chest For Pe Angio - 05/19/2018 9:20 am CLINICAL HISTORY: Chest pain. Shortness of breath COMPARISON: Chest For Pe Angio dated 05/09/2017; Chest Single View dated 05/19/2018; Chest Single View dated 05/18/2018 TECHNIQUE: CT angiogram of the pulmonary arteries was performed with MIP. All CT scans are performed using dose optimization technique as appropriate and may include automated exposure control or mA/KV adjustment according to patient size. FINDINGS: No evidence of pulmonary thromboembolism. Suboptimal visualization of the thoracic aorta. Significant cardiomegaly. Mild interstitial pulmonary edema is seen with small bilateral pleural effusions. Opacities in both l vivian bases probably represent compressive atelectasis. No concerning bony finding. 17 mm mass involving the right adrenal gland noted likely an adenoma. IMPRESSION: No evidence of pulmonary thromboembolism. Mild CHF suspected with small bilateral pleural effusions.
--- NOTE | 2018-05-19 11:51 | P.PN ---
Subjective Date of Service: 05/19/18 Primary Care Provider: [facility] Chief Complaint: Respiratory failure Subjective: Improving (Patient improving. Patient using BiPAP at night. Patient on nasal cannula.) Physical Examination - Vital Signs Temperature: 97.1 F Blood Pressure: 117/58 Pulse: 63 Respirations: 11 Pulse Ox (%): 93 - Physical Exam General: Alert, In no apparent distress, Oriented x3, Cooperative HEENT: Atraumatic Neck: Supple Respiratory: Crackles/rales (Bilateral), Expiratory wheezes (To the bases bilateral improved) Cardiovascular: Irregular heart rate/rhythm (Atrial fibrillation, rate controlled) Gastrointestinal: Normal bowel sounds, Soft and benign, Non-distended, No tenderness, No masses, No rebound, No guarding Musculoskeletal: No erythema, No tenderness, No warmth Integumentary: No tenderness/swelling, No erythema, No warmth, No cyanosis Neurological: Normal speech, Normal strength at 5/5 x4 extr, Normal tone, Normal affect - Studies Microbiology Data (last 24 hrs): 05/18/18 07:35 Blood - Blood Anaerobic Blood Culture - Final 05/18/18 07:08 Blood - Blood Anaerobic Blood Culture - Final Medications List Reviewed: Yes Assessment & Plan - Problems (Diagnosis) (1) Atrial fibrillation Onset Date: 05/19/18 Current Visit: Yes Status: Chronic Plan: Rate controlled with medication. Echocardiogram shows ejection fraction of 35% . CHF better controlled. Will discuss with cardiology. Patient not a good candidate for chronic anti coagulation therapy likely due to noncompliance and fall risk. Will continue with DVT prophylaxis. Qualifiers: Atrial fibrillation type: chronic Qualified Code(s): I48.2 - Chronic atrial fibrillation (2) GERD (gastroesophageal reflux disease) Onset Date: 05/19/18 Current Visit: Yes Status: Chronic Plan: Continue with PPI. Qualifiers: Esophagitis presence: esophagitis presence not specified Qualified Code(s) : K21.9 - Gastro-esophageal reflux disease without esophagitis (3) Dyspnea Onset Date: 07/27/17 Current Visit: No Status: Acute Plan: Secondary to CHF and COPD exacerbation. Will continue to wean off BiPAP. Continue diuresis. Ejection fraction 35%. Will educate on CHF and COPD. Will discuss further with cardiology and pulmonology. Once the patient is able to be transferred to the floor then will have physical therapy assess. Patient likely requires skilled placement. Patient is agreeable to this at discharge. Anticipate continued hospitalization for the next potential 3-5 days. Qualifiers: Dyspnea type: shortness of breath Qualified Code(s): R06.02 - Shortness of breath; R06.00 - Dyspnea, unspecified; R06.01 - Orthopnea (4) Pulmonary edema Onset Date: 05/11/17 Current Visit: No Status: Acute Plan: Continue as above. Will continue with diuresis. Qualifiers: Chronicity: acute Qualified Code(s): J81.0 - Acute pulmonary edema (5) CHF (congestive heart failure) Onset Date: 07/27/17 Current Visit: No Status: Acute Plan: Patient with acute on chronic CHF. Continue diuresis. Aldactone added by pulmonology. Ejection fraction 35%. Will discuss with pulmonology and Cardiology. Qualifiers: Qualified Code(s): I50.23 - Acute on chronic systolic (congestive) heart failure (6) COPD (chronic obstructive pulmonary disease) Onset Date: 07/27/17 Current Visit: No Status: Acute Plan: Acute COPD exacerbation. Will continue with medication. Patient continues to use BiPAP at night. Will wean off BiPAP. Qualifiers: COPD type: COPD with acute exacerbation Qualified Code(s): J44.1 - Chronic obstructive pulmonary disease with (acute) exacerbation (7) Diabetes mellitus Onset Date: 07/27/17 Current Visit: No Status: Chronic Plan: A1c well controlled at 5.9. Will continue sliding scale. Qualifiers: Diabetes mellitus type: type 2 Diabetes mellitus senior living insulin use: with long term care pharmacist use Diabetes mellitus complication status: without complication Qualified Code(s): E11.9 - Type 2 diabetes mellitus without complications; Z79.4 - salvage determiner (current) use of insulin; Z79.4 - salvage determiner ( current) use of insulin; Z79.4 - halfway (current) use of insulin; Z79.4 - salvage determiner (current) use of insulin (8) Hypertension Onset Date: 05/11/17 Current Visit: No Status: Chronic Plan: Blood pressure controlled. Will continue with medication Qualifiers: Hypertension type: essential hypertension Qualified Code(s): I10 - Essential (primary) hypertension (9) Obesity Onset Date: 07/27/17 Current Visit: No Status: Chronic Plan: Will address lifestyle modification education. Qualifiers: Obesity type: due to excess calories Obesity classification: adult class 1 (BMI 30 - 34.9) Serious obesity comorbidity presence: with serious comorbidity Body mass index: BMI 32.0-32.9 Qualified Code(s): E66.09 - Other obesity due to excess calories; Z68.32 - Body mass index (BMI) 32.0-32.9, adult (10) Chronic renal disease Onset Date: 05/19/18 Current Visit: Yes Status: Acute Plan: Acute on chronic renal disease. Renal function improved. Will discuss further with nephrology. Qualifiers: Chronic kidney disease stage: stage 3 (moderate) Qualified Code(s): N18.3 - Chronic kidney disease, stage 3 (moderate) (11) DENEEN (obstructive sleep apnea) Onset Date: 05/19/18 Current Visit: Yes Status: Suspected Plan: Will have Pulmonary assess. Will continue to wean off BiPAP. (12) Hyperlipidemia Current Visit: Yes Status: Chronic Plan: Will continue with medication Qualifiers: Hyperlipidemia type: unspecified Qualified Code(s): E78.5 - Hyperlipidemia , unspecified (13) Acute respiratory failure Onset Date: 11/23/17 Current Visit: No Status: Acute Plan: Acute on chronic respiratory failure likely related to CHF and COPD exacerbation. Will continue with above plan of care. Will wean off BiPAP. Continue with diuresis. Qualifiers: Respiratory failure complication: hypoxia Qualified Code(s): J96.01 - Acute respiratory failure with hypoxia (14) Pleural effusion Current Visit: Yes Status: Acute Plan: Continue with diuresis. Will monitor closely. Wean off BiPAP. Discharge Plan: Other (Skilled placement) Plan to discharge in: Greater than 2 days Time Spent Managing Pts Care (In Minutes): 55
[2018-05-19] MEDS ORDERED: FUROSEMIDE 40 MG/4 ML VIAL IV ONE (12:14)
--- NOTE | 2018-05-19 13:54 | CON ---
Date of Consultation: 05/19/2018 Additional Consulting Physician: Twin Greco D.O. Reason For Consultation: Elevated BUN and creatinine, fluid management. History Of Present Illness: This is a pleasant 72-year-old gentleman with significant past medical h istory of coronary artery disease complicated with congestive heart failure, ejection fraction of 35% on this admission, COPD, chronic kidney disease, baseline creatinine 1.2, GFR of 57 in October 2017. The patient came to the hospital complaining of shortness of breath, leg swelling. Found to have p ulmonary edema. Primary workup showed elevated BUN and creatinine. For that reason, we have been co nsulted. The patient on admission had CT with contrast to rule out PE, PE was negative. The patient started on diuresis for shortness of breath, started to subside. Kidney function improve d. Creatinine down from 1.5 to 1.2. The patient responded very well to diuresis. Past Medical History: Include; 1.Hypertension. 2.Hyperlipidemia. 3.Coronary artery disease, complicated with congestive heart failure. 4.AFib. 5.Morbid obesity. 6.COPD. Allergies: NO KNOWN DRUG ALLERGIES. Home Medications: Include; 1.Aspirin. 2.Xarelto. 3.Amiodarone. 4.Atorvastatin. 5.Carvedilol 12.5 b.i.d. 6.Lasix 80 b.i.d. 7.Valsartan 80 mg daily. Family History: Positive for hypertension. Social History: Ex-smoker. Denied alcohol. Denied drug abuse. Review of Systems: Head and Neck: No red eye. No ear pain. GI: No nausea, no vomiting. : No polyuria. No dysuria. No hematuria. PHARMACIST CRITICAL CARE: Not applicable. Respiratory: Has shortness of breath. Has orthopnea 2, pillow. Cardiovascular: Has palpitation. Endocrine: No polydipsia. Skin: No rash. Neuro: Has low back pain. Musculoskeletal: No joint pain. Physical Examination: Vital Signs: When I saw the patient, the patient lying in bed, on BiPAP, blood pressure 117/58, puls e of 63, afebrile. The patient over the night with the diuresis had urine output of 1400, negative o f 700. Chest: Crackles bilateral. Heart: S1, S2. Systolic murmur. Abdomen: Soft, nontender. Extremities: Trace edema. Neuro: Alert and oriented x3. Nonfocal. Vascular: Could not appreciate any carotid bruit. The patient is obese. Could not appreciate any r enal bruit. Current Medications: The patient is on in our hospital include; 1.Aspirin. 2.Breathing treatment. 3.Lovenox. 4.Atorvastatin. 5.Carvedilol 12.5 b.i.d. 6.Tylenol. 7.Lasix. 8.Ipratropium. Laboratory Data: Echocardiogram showing ejection fraction of 35%. Global hypokinesia. Moderate lef t atrial enlargement. CT angio was negative for PE. Renal ultrasound showing 11.6 x 12, no hydronep hrosis. WBC 7.6, H and H 13.6/40.4, and platelet 161. Sodium 142, potassium 4.1, bicarb 26, BUN 27, and creatinine 1.2. GFR up to 60. Before creatinine was 1.5, GFR was down to 46. TSH 2.3. Assessment And Plan: 1.Acute kidney injury on chronic kidney disease, stage 3, secondary to cardiorenal, looked to me sti ll on the wet side. I am going to go ahead and agree with current Lasix dose. We will give extra do se right now and we will monitor the patient. 2.Given the recent exposure to contrast, I am going to hold on the ARB as also because the blood pre ssure on the lower side, we will utilize blood pressure for more diuresis and we will monitor the pat ient. 3.Hypertension, controlled, optimal. Currently on the lower side. Given that the pulse being contr olled, I am going to decrease carvedilol to 12.5. Continue diuresis. We will consider replacing ARB with losartan after couple of days after making sure that there is no contrast injury. 4.Agree with Aldactone given the current ejection fraction. 5.Chronic obstructive pulmonary disease, as by pulmonary. Thank you Dr. Greco for allowing us to participate in the care of your patient. LÁZARO/GISEL Voice ID: [id number] Report ID: [id number]
--- NOTE | 2018-05-19 15:27 | PN ---
Subjective: Mr. Gonzales is in chronic atrial fibrillation, his Eliquis dose probably needs to be redosed to 5 b.i.d., which would be appropriate dose for him, since he does not have evidence of a pulmonary embolus. I think he got volume overloaded because of Medicine and dietary noncompliance. He does n ot have transportation, counts on drugs being sent to him. He told me that while at home he was wait ing on medicines and had skipped at least a few doses that probably accounts for him developing pulmo nary edema. His echo shows EF 35-40%. No significant valvular lesion. So, we re-established his me dications, take some measures to see that he complies. I think he would do fine. It would be reason able to switch him from valsartan to Entresto, but since he is already very poorly compliant, I do no t think I would make that change unless he reports to the office. At this point, he seems reluctant to do that. I think he is hoping to be [facility] to [facility] [place] and could not [facility] CAST Voice ID: [id number] Report ID: [id number]
[2018-05-19] MEDS: ENOXAPARIN 40 MG/0.4 ML SQ SCH (16:33)
[2018-05-19] MEDS: CARVEDILOL 12.5 MG TAB PO SCH (17:31)
[2018-05-19] MEDS: ATORVASTATIN 80 MG TAB PO SCH (21:00)
[2018-05-20] MEDS: METHYLPREDNISOLONE 40 MG INJ IV SCH (01:05)
[2018-05-20 05:42] LABS: Absolute Lymphocytes (CBC) 0.5 K/uL (0.7-4.9); Absolute Monocytes 0.6 K/uL (0.1-1.3); Basophils % 0.2 % (0-1.3); Lymphocytes % 3.6 % (15.3-44.8); MCH 29.7 pg (27.0-35.0); MCV 88.8 fL (80-100); MPV 11.5 fL (7.6-11.3); Monocytes % 4.3 % (3.3-12.3); RBC Red Blood Cell Count 4.73 M/uL (4.33-5.43)
[2018-05-20] MEDS: CARVEDILOL 12.5 MG TAB PO SCH ×2 (05:43→17:31)
[2018-05-20 05:57] LABS: Albumin 3.3 g/dL (3.4-5.0); Bilirubin Total 0.6 mg/dL (0.2-1.0); Magnesium 2.9 mg/dL (1.8-2.4); Potassium 3.8 mmol/L (3.5-5.1); Protein, Total 6.8 g/dL (6.4-8.2)
[2018-05-20 06:30] LABS: Blood Morphology Comment NOT SEEN (NOT SEEN); Platelet Estimate ADEQ
[2018-05-20] MEDS: ARFORMOTEROL TARTRATE 15 MCG/2 ML VIAL.NEB NEB SCH ×2 (07:24→20:43)
[2018-05-20] MEDS ORDERED: ALPRAZOLAM 0.25 MG TABLET PO PRN (07:25)
[2018-05-20] MEDS ORDERED: NITROGLYCERIN 0.4 MG/TAB SL PRN (07:26)
[2018-05-20] MEDS: INSULIN -REGULAR HUMAN 50 UNIT/0.5 ML ML SQ SCH ×4 (07:30→21:00)
--- NOTE | 2018-05-20 08:18 | P.PN ---
Subjective Date of Service: 05/20/18 Primary Care Provider: [place] K[facility] Chief Complaint: Respiratory failure Subjective: Improving (Patient is doing much better he is alert oriented responsive off the BiPAP some chest pain this morning) Review of Systems Unremarkable Physical Examination - Vital Signs Temperature: 98.1 F Blood Pressure: 112/62 Pulse: 65 Respirations: 14 Pulse Ox (%): 93 - Physical Exam General: Alert, Oriented x3, Cooperative Neck: Supple Respiratory: Clear to auscultation bilaterally Cardiovascular: No edema, Normal S1 S2 - Studies Microbiology Data (last 24 hrs): 05/18/18 07:35 Blood - Blood Anaerobic Blood Culture - Final 05/18/18 07:08 Blood - Blood Anaerobic Blood Culture - Final Medications List Reviewed: Yes Assessment & Plan - Problems (Diagnosis) (1) Respiratory failure Onset Date: 05/11/17 Current Visit: No Status: Acute Plan: Patient is doing much better he is currently on nasal cannula oxygen no evidence of thromboembolism bilateral pleural effusions most likely congestive heart failure echocardiogram shows global hypokinesis Dc Montelongo catheter change to p.o. prednisone continue with bronchodilators he only has oxygen at home he will need a long-acting bronchodilator recommend Advair 1 puff twice a day outpatient pulmonary function testing continue with Lasix spironolactone change to p.o. Lasix transfer to the floor Qualifiers: Chronicity: acute Respiratory failure complication: hypercapnia Qualified Code(s): J96.02 - Acute respiratory failure with hypercapnia
--- NOTE | 2018-05-20 08:33 | RAD REPORT ---
EXAM DESCRIPTION: RAD - Chest Single View - 05/20/2018 5:58 am CLINICAL HISTORY: follow up CHF/COPD Chest pain. COMPARISON: Chest Single View dated 05/19/2018; Chest Single View dated 05/18/2018; Chest Single View dated 05/18/2018; Chest Single View dated 11/22/2017; Chest For Pe Angio dated 05/19/2018 FINDINGS: Portable technique limits examination quality. Mild improvement pulmonary edema pattern is seen since 05/19/2018. Small bilateral pleural effusions are present, also improved. The heart is moderately enlarged in size. No displaced fractures. IMPRESSION: Mild improvement in lung aeration since comparative study.
[2018-05-20] MEDS: FUROSEMIDE 40 MG TABLET PO SCH (08:55)
[2018-05-20] MEDS: ASPIRIN EC 81 MG TAB PO SCH (08:55)
[2018-05-20] MEDS: SPIRONOLACTONE 25 MG TABLET PO SCH ×2 (08:56→21:11)
--- NOTE | 2018-05-20 12:44 | P.PN ---
Subjective Date of Service: 05/20/18 Primary Care Provider: [facility] Chief Complaint: Respiratory failure Subjective: Improving Physical Examination - Vital Signs Temperature: 98.1 F Blood Pressure: 139/58 Pulse: 54 Respirations: 16 Pulse Ox (%): 91 - Physical Exam General: Alert, In no apparent distress, Oriented x3, Cooperative HEENT: Atraumatic Neck: Supple Respiratory: Expiratory wheezes Cardiovascular: Normal pulses, Regular rate/rhythm Gastrointestinal: Normal bowel sounds, Soft and benign, Non-distended, No tenderness, No masses, No rebound, No guarding Musculoskeletal: No erythema, No tenderness, No warmth Integumentary: No erythema, No warmth, No cyanosis, Tenderness/swelling (Edema to the lower extremity improved) Neurological: Normal speech, Normal strength at 5/5 x4 extr, Normal tone, Normal affect - Studies Microbiology Data (last 24 hrs): 05/18/18 07:35 Blood - Blood Anaerobic Blood Culture - Final Medications List Reviewed: Yes Assessment & Plan - Problems (Diagnosis) (1) Atrial fibrillation Onset Date: 05/19/18 Current Visit: Yes Status: Chronic Plan: Rate controlled with medication. Echocardiogram shows ejection fraction of 35% . CHF better controlled. Lasix adjusted. Continue with 1500 cc per day fluid restriction. Patient not a good candidate for chronic anti coagulation therapy likely due to noncompliance and fall risk. Will continue with DVT prophylaxis. Spoke with cardiology. Cardiology will send previous heart catheterization to cardiovascular surgery to consider surgery in the near future. Qualifiers: Atrial fibrillation type: chronic Qualified Code(s): I48.2 - Chronic atrial fibrillation (2) GERD (gastroesophageal reflux disease) Onset Date: 05/19/18 Current Visit: Yes Status: Chronic Plan: Continue with PPI. Qualifiers: Esophagitis presence: esophagitis presence not specified Qualified Code(s) : K21.9 - Gastro-esophageal reflux disease without esophagitis (3) Dyspnea Onset Date: 07/27/17 Current Visit: No Status: Acute Plan: Secondary to CHF and COPD exacerbation. Will continue to wean off BiPAP. Continue diuresis. Ejection fraction 35%. Patient now on oral Lasix. Will teach on fluid restriction and medication. As mentioned above cardiology will discuss case with cardiovascular surgery to consider future surgery. Options for skilled placement address with patient. Patient is agreeable. Will transfer patient to the floor. Will start physical therapy. Qualifiers: Dyspnea type: shortness of breath Qualified Code(s): R06.02 - Shortness of breath; R06.00 - Dyspnea, unspecified; R06.01 - Orthopnea (4) Pulmonary edema Onset Date: 05/11/17 Current Visit: No Status: Acute Plan: Continue as above. Will continue with diuresis. Chest x-ray shows improvement. Qualifiers: Chronicity: acute Qualified Code(s): J81.0 - Acute pulmonary edema (5) CHF (congestive heart failure) Onset Date: 07/27/17 Current Visit: No Status: Acute Plan: Patient with acute on chronic CHF. Continue diuresis. Continue Lasix. Ejection fraction 35%. Continue as above Qualifiers: Qualified Code(s): I50.23 - Acute on chronic systolic (congestive) heart failure (6) COPD (chronic obstructive pulmonary disease) Onset Date: 07/27/17 Current Visit: No Status: Acute Plan: Acute COPD exacerbation. Will continue with medication. Patient continues to use BiPAP at night. Will wean off BiPAP. Qualifiers: COPD type: COPD with acute exacerbation Qualified Code(s): J44.1 - Chronic obstructive pulmonary disease with (acute) exacerbation (7) Diabetes mellitus Onset Date: 07/27/17 Current Visit: No Status: Chronic Plan: A1c well controlled at 5.9. Will continue sliding scale. Qualifiers: Diabetes mellitus type: type 2 Diabetes mellitus [facility] insulin use: with [facility] use Diabetes mellitus complication status: without complication Qualified Code(s): E11.9 - Type 2 diabetes mellitus without complications; Z79.4 - alf (current) use of insulin; Z79.4 - personnel worker ( current) use of insulin; Z79.4 - personnel worker (current) use of insulin; Z79.4 - alf (current) use of insulin (8) Hypertension Onset Date: 05/11/17 Current Visit: No Status: Chronic Plan: Blood pressure controlled. Will continue with medication Qualifiers: Hypertension type: essential hypertension Qualified Code(s): I10 - Essential (primary) hypertension (9) Obesity Onset Date: 07/27/17 Current Visit: No Status: Chronic Plan: Will address lifestyle modification education. Qualifiers: Obesity type: due to excess calories Obesity classification: adult class 1 (BMI 30 - 34.9) Serious obesity comorbidity presence: with serious comorbidity Body mass index: BMI 32.0-32.9 Qualified Code(s): E66.09 - Other obesity due to excess calories; Z68.32 - Body mass index (BMI) 32.0-32.9, adult (10) Chronic renal disease Onset Date: 05/19/18 Current Visit: Yes Status: Acute Plan: Acute on chronic renal disease. Renal function improved. Discuss with nephrology. Continue as above. Qualifiers: Chronic kidney disease stage: stage 3 (moderate) Qualified Code(s): N18.3 - Chronic kidney disease, stage 3 (moderate) (11) DENEEN (obstructive sleep apnea) Onset Date: 05/19/18 Current Visit: Yes Status: Suspected Plan: Will have Pulmonary assess. Will continue to wean off BiPAP. (12) Hyperlipidemia Current Visit: Yes Status: Chronic Plan: Will continue with medication Qualifiers: Hyperlipidemia type: unspecified Qualified Code(s): E78.5 - Hyperlipidemia , unspecified (13) Acute respiratory failure Onset Date: 11/23/17 Current Visit: No Status: Acute Plan: Acute on chronic respiratory failure likely related to CHF and COPD exacerbation. Will continue with above plan of care. Will wean off BiPAP. Continue with diuresis. Qualifiers: Respiratory failure complication: hypoxia Qualified Code(s): J96.01 - Acute respiratory failure with hypoxia (14) Pleural effusion Current Visit: Yes Status: Acute Plan: Continue with diuresis. Will monitor closely. Wean off BiPAP. Discharge Plan: Other (Skilled placement) Plan to discharge in: 72 Hours Time Spent Managing Pts Care (In Minutes): 55
--- NOTE | 2018-05-20 16:27 | PN ---
Date of Progress Note: 05/20/2018 Subjective: The patient was admitted with acute kidney injury secondary to cardiorenal respiratory f ailure, combined congestive heart failure, and COPD. The patient was started on diuresis, responding very well. The patient had CT with contrast. The patient feeling better today. Objective: Vital Signs: Blood pressure 139/58, pulse of 74. Afebrile. The patient had good urine output, in the last 24-hour had 2600. Chest: Faint crackles on the base. Heart: S1, S2. Systolic murmur. Abdomen: Soft, nontender. Extremities: Plus edema. Laboratory Data: WBC 14.1, H and H 14/42. Sodium 142, potassium 3.8, bicarb 25, BUN 33, creatinine 1.4, calcium 8.7. Phosphorus 2.9 Current Medications: The patient is on include Lasix 80 mg daily. We will switch to oral, breathing treatment, Lovenox, atorvastatin, Zofran. Assessment And Plan: 1.Acute kidney injury, multifactorial, secondary to cardiorenal superimposed with contrast induced n ephropathy. Still on the wet side. I agree with switching to oral. We will monitor. 2.Hypertension, controlled, optimal. Continue current medication. 3.Respiratory failure secondary to pulmonary edema, congestive heart failure. We will try to establ hammad better volume control. Continue diuresis. 4.Chronic obstructive pulmonary disease exacerbation with pulmonary hypertension. As per pulmonary. Case discussed with Dr. Greco. Agreed on the plan. Discussed with the patient, who verbalized under standing. LÁZARO/GISEL Voice ID: [id number] Report ID: [id number]
[2018-05-20] MEDS: ENOXAPARIN 40 MG/0.4 ML SQ SCH (17:27)
[2018-05-20] MEDS: ATORVASTATIN 80 MG TAB PO SCH (21:11)
[2018-05-21] MEDS: CARVEDILOL 12.5 MG TAB PO SCH (05:11)
[2018-05-21 05:12] VITALS: BMI 31.9
[2018-05-21] MEDS: INSULIN -REGULAR HUMAN 50 UNIT/0.5 ML ML SQ SCH ×3 (07:30→16:19)
[2018-05-21] MEDS: ARFORMOTEROL TARTRATE 15 MCG/2 ML VIAL.NEB NEB SCH (08:37)
[2018-05-21 09:19] LABS: Potassium 3.7 mmol/L (3.5-5.1)
[2018-05-21 09:20] LABS: Albumin 3.2 g/dL (3.4-5.0); Bilirubin Total 0.5 mg/dL (0.2-1.0); Magnesium 2.7 mg/dL (1.8-2.4); Protein, Total 6.3 g/dL (6.4-8.2)
[2018-05-21 09:36] LABS: Absolute Lymphocytes (CBC) 1.2 K/uL (0.7-4.9); Absolute Monocytes 0.9 K/uL (0.1-1.3); Absolute Neutrophil 9.8 K/uL (1.8-8.0); Basophils % 0.4 % (0-1.3); Hematocrit 42.5 % (39.6-49.0); Lymphocytes % 10.1 % (15.3-44.8); MCH 29.9 pg (27.0-35.0); MCV 88.6 fL (80-100); MPV 11.6 fL (7.6-11.3); Monocytes % 7.2 % (3.3-12.3)
[2018-05-21 09:40] VITALS: O2SAT 97
--- NOTE | 2018-05-21 09:46 | P.PN ---
Subjective Date of Service: 05/21/18 Primary Care Provider: [place] Kari Chief Complaint: Respiratory failure Subjective: Other (Patient doing better. Patient did work with physical therapy yesterday.) Physical Examination - Vital Signs Temperature: 97.4 F Blood Pressure: 125/81 Pulse: 47 Respirations: 18 Pulse Ox (%): 99 - Physical Exam General: Alert, In no apparent distress, Oriented x3, Cooperative HEENT: Atraumatic Neck: Supple Respiratory: Expiratory wheezes (Mild bilateral. Nasal cannula in place.) Cardiovascular: Normal pulses, Regular rate/rhythm Gastrointestinal: Normal bowel sounds, Soft and benign, Non-distended, No masses , No rebound, No guarding Musculoskeletal: No erythema, No tenderness, No warmth Integumentary: Tenderness/swelling (Edema to the lower extremity improved.) Neurological: Normal speech, Normal strength at 5/5 x4 extr, Normal tone, Normal affect - Studies Medications List Reviewed: Yes Assessment & Plan - Problems (Diagnosis) (1) Atrial fibrillation Onset Date: 05/19/18 Current Visit: Yes Status: Chronic Plan: Rate controlled with medication. Echocardiogram shows ejection fraction of 35% . CHF better controlled. Will continue with Lasix orally. Will continue with 1500 cc per day fluid restriction. Patient not a good candidate for chronic anti coagulation therapy due to noncompliance and risk for fall. Case discussed at length with cardiology. Cardiology will send previous heart catheterization records to cardiovascular surgery to review. Patient may require cardiac intervention in the future. Currently awaiting placement to skilled facility. Will discuss with social work specialist. Qualifiers: Atrial fibrillation type: chronic Qualified Code(s): I48.2 - Chronic atrial fibrillation (2) GERD (gastroesophageal reflux disease) Onset Date: 05/19/18 Current Visit: Yes Status: Chronic Plan: Continue with PPI. Qualifiers: Esophagitis presence: esophagitis presence not specified Qualified Code(s) : K21.9 - Gastro-esophageal reflux disease without esophagitis (3) Dyspnea Onset Date: 07/27/17 Current Visit: No Status: Acute Plan: Secondary to CHF and COPD exacerbation. Patient doing better at this time. Patient on nasal cannula. Will continue with oral Lasix. Will continue with 1500 cc per day fluid restriction. Ejection fraction 35%. Will continue with COPD medication. Continue as above as the patient may require cardiovascular surgery in the future. This can be done as an outpatient likely. Awaiting transfer to skilled facility. Will discuss with social work specialist and physical therapy. Qualifiers: Dyspnea type: shortness of breath Qualified Code(s): R06.02 - Shortness of breath; R06.00 - Dyspnea, unspecified; R06.01 - Orthopnea (4) Pulmonary edema Onset Date: 05/11/17 Current Visit: No Status: Acute Plan: Continue as above. Will continue with diuresis. Chest x-ray shows improvement. Qualifiers: Chronicity: acute Qualified Code(s): J81.0 - Acute pulmonary edema (5) CHF (congestive heart failure) Onset Date: 07/27/17 Current Visit: No Status: Acute Plan: Patient with acute on chronic CHF. Continue diuresis. Continue Lasix. Ejection fraction 35%. Overall improved with medication. Qualifiers: Qualified Code(s): I50.23 - Acute on chronic systolic (congestive) heart failure (6) COPD (chronic obstructive pulmonary disease) Onset Date: 07/27/17 Current Visit: No Status: Acute Plan: Acute COPD exacerbation. Overall improved. Continue with oxygen. Patient will likely need oxygen at discharge. Qualifiers: COPD type: COPD with acute exacerbation Qualified Code(s): J44.1 - Chronic obstructive pulmonary disease with (acute) exacerbation (7) Diabetes mellitus Onset Date: 07/27/17 Current Visit: No Status: Chronic Plan: A1c well controlled at 5.9. Will continue sliding scale. Qualifiers: Diabetes mellitus type: type 2 Diabetes mellitus assistant terminal manager insulin use: with assistant terminal manager use Diabetes mellitus complication status: without complication Qualified Code(s): E11.9 - Type 2 diabetes mellitus without complications; Z79.4 - salvage determiner (current) use of insulin; Z79.4 - salvage determiner ( current) use of insulin; Z79.4 - [facility] (current) use of insulin; Z79.4 - [facility] (current) use of insulin (8) Hypertension Onset Date: 05/11/17 Current Visit: No Status: Chronic Plan: Blood pressure controlled. Will continue with medication Qualifiers: Hypertension type: essential hypertension Qualified Code(s): I10 - Essential (primary) hypertension (9) Obesity Onset Date: 07/27/17 Current Visit: No Status: Chronic Plan: Will address lifestyle modification education. Qualifiers: Obesity type: due to excess calories Obesity classification: adult class 1 (BMI 30 - 34.9) Serious obesity comorbidity presence: with serious comorbidity Body mass index: BMI 32.0-32.9 Qualified Code(s): E66.09 - Other obesity due to excess calories; Z68.32 - Body mass index (BMI) 32.0-32.9, adult (10) Chronic renal disease Onset Date: 05/19/18 Current Visit: Yes Status: Acute Plan: Acute on chronic renal disease. Likely from cardiorenal related to IV contrast. Case discussed with cardiology. Overall improved. Await lab results today. Qualifiers: Chronic kidney disease stage: stage 3 (moderate) Qualified Code(s): N18.3 - Chronic kidney disease, stage 3 (moderate) (11) DENEEN (obstructive sleep apnea) Onset Date: 05/19/18 Current Visit: Yes Status: Suspected Plan: Patient will need sleep study done as an outpatient for CPAP. (12) Hyperlipidemia Current Visit: Yes Status: Chronic Plan: Will continue with medication Qualifiers: Hyperlipidemia type: unspecified Qualified Code(s): E78.5 - Hyperlipidemia , unspecified (13) Acute respiratory failure Onset Date: 11/23/17 Current Visit: No Status: Acute Plan: Acute on chronic respiratory failure likely related to CHF and COPD exacerbation. Overall improved. Will continue with diuretic therapy, fluid restriction, COPD medication and oxygen. Await placement to skilled facility. Continue physical therapy. Qualifiers: Respiratory failure complication: hypoxia Qualified Code(s): J96.01 - Acute respiratory failure with hypoxia (14) Pleural effusion Current Visit: Yes Status: Acute Plan: Continue with diuresis. Will monitor closely. Wean off BiPAP. Discharge Plan: Other (Skilled placement facility) Plan to discharge in: 24 Hours Time Spent Managing Pts Care (In Minutes): 55
[2018-05-21] MEDS: SPIRONOLACTONE 25 MG TABLET PO SCH (10:09)
[2018-05-21] MEDS: FUROSEMIDE 40 MG TABLET PO SCH (10:10)
[2018-05-21] MEDS: ASPIRIN EC 81 MG TAB PO SCH (10:10)
[2018-05-21] MEDS ORDERED: POTASSIUM 25 MEQ EFFERV TAB PO ONE (10:14)
--- NOTE | 2018-05-21 12:47 | P.DS ---
Admission Date: 05/18/18 Discharge Date: 05/21/18 Primary Care Provider: [facility] Disposition: TRANSFER TO SNF - MEDICAL Discharge Condition: GOOD Reason for Admission: Respiratory failure Consultations: Cardiology-Dr. Cornelius Pulmonary-Dr. Sheth Nephrology-Dr. Hernandez Procedures: Renal ultrasound: COMPARISON: April 2017 ultrasound FINDINGS: The right kidney measures 11.6 x 5.1 x 4.8 cm. The left kidney measures 12.0 x 6.2 x 5.0 cm. Cortical thickness is normal. Mild bilateral increased cortical echogenicity is present most likely medical renal disease. No hydronephrosis or suspicious renal mass. [place] catheter is in place. Partially filled bladder shows no gross abnormality. IMPRESSION: No hydronephrosis or suspicious renal mass. Mild bilateral medical renal disease evident. Echocardiogram: Ejection fraction 35% LEFT VENTRICULAR WALL MOTION: MODERATE GLOBAL HYPOKINESIS. DOPPLER/COLOR FLOW: MILD TRICUSPID REGURGITATION COMMENTS: TECHNICALLY DIFFICULT STUDY. MODERATE GLOBAL HYPOKINESIS. EJECTION FRACTION 35-40%. LEFT ATRIAL ENLARGEMENT. MILD TRICUSPID REGURGITATION CT scan: COMPARISON: Chest For Pe Angio dated 05/09/2017; Chest Single View dated 2017; Chest Single View dated 05/18/2018 TECHNIQUE: CT angiogram of the pulmonary arteries was performed with MIP. All CT scans are performed using dose optimization technique as appropriate and may include automated exposure control or mA/KV adjustment according to patient size. FINDINGS: No evidence of pulmonary thromboembolism. Suboptimal visualization of the thoracic aorta. Significant cardiomegaly. Mild interstitial pulmonary edema is seen with small bilateral pleural effusions. Opacities in both lung bases probably represent compressive atelectasis. No concerning bony finding. 17 mm mass involving the right adrenal gland noted likely an adenoma. IMPRESSION: No evidence of pulmonary thromboembolism. Mild CHF suspected with small bilateral pleural effusions. - Problems (1) Atrial fibrillation Onset Date: 05/19/18 Current Visit: Yes Status: Chronic Qualifiers: Atrial fibrillation type: chronic Qualified Code(s): I48.2 - Chronic atrial fibrillation (2) GERD (gastroesophageal reflux disease) Onset Date: 05/19/18 Current Visit: Yes Status: Chronic Qualifiers: Esophagitis presence: esophagitis presence not specified Qualified Code(s) : K21.9 - Gastro-esophageal reflux disease without esophagitis (3) Dyspnea Onset Date: 07/27/17 Current Visit: No Status: Acute Qualifiers: Dyspnea type: shortness of breath Qualified Code(s): R06.02 - Shortness of breath; R06.00 - Dyspnea, unspecified; R06.01 - Orthopnea (4) Pulmonary edema Onset Date: 05/11/17 Current Visit: No Status: Acute Qualifiers: Chronicity: acute Qualified Code(s): J81.0 - Acute pulmonary edema (5) CHF (congestive heart failure) Onset Date: 07/27/17 Current Visit: No Status: Acute Qualifiers: Qualified Code(s): I50.23 - Acute on chronic systolic (congestive) heart failure (6) COPD (chronic obstructive pulmonary disease) Onset Date: 07/27/17 Current Visit: No Status: Acute Qualifiers: COPD type: COPD with acute exacerbation Qualified Code(s): J44.1 - Chronic obstructive pulmonary disease with (acute) exacerbation (7) Diabetes mellitus Onset Date: 07/27/17 Current Visit: No Status: Chronic Qualifiers: Diabetes mellitus type: type 2 Diabetes mellitus terminal operations supervisor insulin use: with chcf use Diabetes mellitus complication status: without complication Qualified Code(s): E11.9 - Type 2 diabetes mellitus without complications; Z79.4 - extermination inspector (current) use of insulin; Z79.4 - extermination inspector ( current) use of insulin; Z79.4 - extermination inspector (current) use of insulin; Z79.4 - [facility] (current) use of insulin (8) Hypertension Onset Date: 05/11/17 Current Visit: No Status: Chronic Qualifiers: Hypertension type: essential hypertension Qualified Code(s): I10 - Essential (primary) hypertension (9) Obesity Onset Date: 07/27/17 Current Visit: No Status: Chronic Qualifiers: Obesity type: due to excess calories Obesity classification: adult class 1 (BMI 30 - 34.9) Serious obesity comorbidity presence: with serious comorbidity Body mass index: BMI 32.0-32.9 Qualified Code(s): E66.09 - Other obesity due to excess calories; Z68.32 - Body mass index (BMI) 32.0-32.9, adult (10) Chronic renal disease Onset Date: 05/19/18 Current Visit: Yes Status: Acute Qualifiers: Chronic kidney disease stage: stage 2 (mild) Qualified Code(s): N18.2 - Chronic kidney disease, stage 2 (mild) (11) DENEEN (obstructive sleep apnea) Onset Date: 05/19/18 Current Visit: Yes Status: Suspected (12) Hyperlipidemia Current Visit: Yes Status: Chronic Qualifiers: Hyperlipidemia type: unspecified Qualified Code(s): E78.5 - Hyperlipidemia , unspecified (13) Acute respiratory failure Onset Date: 11/23/17 Current Visit: No Status: Acute Qualifiers: Respiratory failure complication: hypoxia Qualified Code(s): J96.01 - Acute respiratory failure with hypoxia (14) Pleural effusion Current Visit: Yes Status: Acute Brief History of Present Illness: 72-year-old male presented to emergency room with shortness of breath. Patient was diaphoretic. Patient required BiPAP by EMS. EMS also gave the patient Lasix, aspirin, morphine. When the patient arrived to the ER the patient was hypertensive with a blood pressure of 223/116. Heart rate was 114. Patient was placed on BiPAP patient was immediately started on morphine and Cardene drip. Patient remained stable and improved with diuresis. It was reassess. Patient was able to get off Cardene in the emergency room. The social removed. Blood pressures improved to 1 17/56, heart rate 98. Respirations were at 24. He was satting 95% with BiPAP. Patient had reported some increased shortness of breath over the last several days. This led to this exacerbation. History of CHF, COPD, atrial fibrillation. I was asked to admit the patient. Patient currently stable this time. Patient will go to ICU. Patient denies any fever, chills. No significant cough congestion noted. Hospital Course: During the course of his stay patient presented with shortness of breath/acute respiratory failure secondary to COPD/CHF exacerbation. Patient was evaluated by cardiology and pulmonology. Patient required BiPAP initially but this was weaned down to nasal cannula. Patient has done well with diuretic therapy, COPD medication and adjustments to his medications for CHF. Echocardiogram shows ejection fraction of 35%. At discharge patient will go to a skilled facility to continue rehabilitation. At discharge for his COPD he will continue with Brovana 1 unit dose twice daily, albuterol 1 unit dose 3 times a day as needed for shortness of breath and Atrovent 1 unit dose 3 times a day as needed for shortness of breath. Patient will continue with oxygen to maintain sats above 90%. This can be weaned off. Patient uses oxygen at home. Recommendations for the patient follow up with pulmonology in 2-4 weeks to monitor his progress. For his CHF, patient will continue with a 1500 cc per day fluid restriction and low-salt diet. Medications have been adjusted. At discharge he will continue with Lasix 40 mg 1 pill twice daily and Aldactone 25 mg 1 pill twice daily. Patient will also continue with carvedilol 12.5 mg 1 pill twice daily. Valsartan has been discontinued. Recommendation for the patient follow up with cardiology in 1-2 weeks to monitor his progress and continue his care. Cardiology plans to review previous heart catheterization with cardiovascular surgery to consider possible surgery in the future. This can be further addressed as an outpatient. Patient has hypertension. Medications have been adjusted. Patient will no longer take valsartan. He will continue with carvedilol 12.5 mg 1 pill twice daily. Recommendation is to maintain blood pressures less 150/80. Further adjustment can be done by his PCP Patient has hyperlipidemia. Patient will continue with Lipitor 80 mg 1 pill daily. Patient has GERD. He will continue with Protonix 40 mg 1 pill once daily. Patient has CAD. He will continue with aspirin 81 mg daily. Patient also has a history of paroxysmal atrial fibrillation. Patient not a candidate for chronic anti coagulation therapy due to risk of fall, injury, and compliance. As mentioned previously cardiology plans to discuss the patient's previous heart catheterization with cardiovascular surgery to considered possible surgeon if future. Recommendation is for the patient follow up with cardiology in 1-2 weeks to further address. Patient has diabetes. Hemoglobin A1c 5.9. Patient will continue with diet only. No medications needed at this time. Recommendation is to maintain blood sugars less 140 fasting and less than 200 after meals. Further adjustment and medication can be considered in the future. Patient has chronic renal disease. Patient evaluated by nephrology. Medications have been adjusted. Future medications will need to be renally dosed. Recommendation on no further use nonsteroidal anti-inflammatories. Recommendations for the patient follow up with nephrology in 1-2 weeks to monitor his progress. Recommendation to recheck lab-BMP in 1-2 weeks. Vital Signs/Physical Exam: Temp Pulse Resp BP Pulse Ox 97.2 F 65 18 124/55 L 94 05/21/18 12:00 05/21/18 12:00 05/21/18 12:00 05/21/18 12:00 05/21/18 12:00 General: Alert, In no apparent distress, Oriented x3, Cooperative HEENT: Atraumatic Neck: Supple Respiratory: Expiratory wheezes (Mild) Cardiovascular: Irregular heart rate/rhythm (Atrial fibrillation, rate controlled) Gastrointestinal: Normal bowel sounds, Soft and benign, Non-distended, No tenderness, No masses, No rebound, No guarding Musculoskeletal: No erythema, No tenderness, No warmth Integumentary: No tenderness/swelling, No erythema, No warmth, No cyanosis Neurological: Normal speech, Normal strength at 5/5 x4 extr, Normal tone, Normal affect Lymphatics: No axilla or inguinal lymphadenopathy Laboratory Data at Discharge: WBC 11.9 K/uL (4.3-10.9) H D 05/21/18 05:33 Hgb 14.3 g/dL (13.6-17.9) 05/21/18 05:33 Hct 42.5 % (39.6-49.0) 05/21/18 05:33 Plt Count 160 K/uL (152-406) 05/21/18 05:33 PT 13.0 SECONDS (9.5-12.5) H 05/18/18 06:55 INR 1.10 05/18/18 06:55 APTT 23.7 SECONDS (24.3-36.9) L 05/18/18 06:55 Sodium 143 mmol/L (136-145) 05/21/18 05:33 Potassium 3.7 mmol/L (3.5-5.1) 05/21/18 05:33 BUN 36 mg/dL (7-18) H 05/21/18 05:33 Creatinine 1.20 mg/dL (0.55-1.3) 05/21/18 05:33 Glucose 122 mg/dL (74-106) H 05/21/18 05:33 Magnesium 2.7 mg/dL (1.8-2.4) H 05/21/18 05:33 Total Bilirubin 0.5 mg/dL (0.2-1.0) 05/21/18 05:33 AST 11 U/L (15-37) L 05/21/18 05:33 ALT 29 U/L (12-78) 05/21/18 05:33 Alkaline Phosphatase 85 U/L (45-117) 05/21/18 05:33 Troponin I 0.30 ng/mL (0.0-0.045) H 05/18/18 21:47 Triglycerides 97 mg/dL (<150) 05/19/18 04:35 Cholesterol 196 mg/dL (<200) 05/19/18 04:35 HDL Cholesterol 42 mg/dL (40-60) 05/19/18 04:35 Cholesterol/HDL Ratio 4.67 05/19/18 04:35 Home Medications: Atorvastatin Calcium [Lipitor] 80 mg PO DAILY 11/21/17 Albuterol Neb [Proventil 0.083% Neb Soln] 2.5 mg NEB TID PRN #90 amp 05/21/18 Arformoterol Tartrate [Brovana] 15 mcg NEB BIDRESP #60 vial.neb 05/21/18 Aspirin [Aspirin EC 81 MG] 81 mg PO DAILY #30 tablet. 05/21/18 Carvedilol [Coreg*] 12.5 mg PO BID #60 tab 05/21/18 Furosemide [Lasix*] 40 mg PO BID #60 tab 05/21/18 Ipratropium Neb [Atrovent*] 0.5 mg NEB TID PRN #90 amp 05/21/18 Pantoprazole [Protonix Tab] 40 mg PO DAILY #30 tab 05/21/18 Spironolactone [Aldactone*] 25 mg PO BID #60 tab 05/21/18 New Medications: Albuterol Neb [Proventil 0.083% Neb Soln] 2.5 mg NEB TID PRN #90 amp PRN Reason: Shortness Of Breath Arformoterol Tartrate [Brovana] 15 mcg NEB BIDRESP #60 vial.neb Aspirin [Aspirin EC 81 MG] 81 mg PO DAILY #30 tablet. Carvedilol [Coreg*] 12.5 mg PO BID #60 tab Furosemide [Lasix*] 40 mg PO BID #60 tab Ipratropium Neb [Atrovent*] 0.5 mg NEB TID PRN #90 amp PRN Reason: Shortness Of Breath Pantoprazole [Protonix Tab] 40 mg PO DAILY #30 tab Spironolactone [Aldactone*] 25 mg PO BID #60 tab Patient Discharge Instructions: 1. Patient will go to skilled facility continue rehabilitation. Patient will follow up with his PCP in 1-2 weeks to follow up this hospitalization. 2. Patient presented with shortness of breath/ acute respiratory failure secondary to COPD/CHF exacerbation. Patient was evaluated by cardiology and pulmonology. Patient did well during the course of his stay. Patient has done well with diuretic therapy, COPD medication and adjustments to his medications for CHF. Echocardiogram shows ejection fraction of 35%. At discharge patient will go to a skilled facility to continue rehabilitation. At discharge for his COPD he will continue with Brovana 1 unit dose twice daily, albuterol 1 unit dose 3 times a day as needed for shortness of breath and Atrovent 1 unit dose 3 times a day as needed for shortness of breath. Patient will continue with oxygen to maintain sats above 90%. This can be weaned off. Patient uses oxygen at home. Recommendations for the patient follow up with pulmonology in 2-4 weeks to monitor his progress. 3. For his systolic dysfunction CHF, patient will continue with a 1500 cc per day fluid restriction and low-salt diet. Medications have been adjusted. At discharge he will continue with Lasix 40 mg 1 pill twice daily and Aldactone 25 mg 1 pill twice daily. Patient will also continue with carvedilol 12.5 mg 1 pill twice daily. Valsartan has been discontinued. Recommendation for the patient follow up with cardiology in 1-2 weeks to monitor his progress and continue his care. Cardiology plans to review previous heart catheterization with cardiovascular surgery to consider possible surgery in the future. This can be further addressed as an outpatient. 4. Patient has hypertension. Medications have been adjusted. Patient will no longer take valsartan. He will continue with carvedilol 12.5 mg 1 pill twice daily. Recommendation is to maintain blood pressures less 150/80. Further adjustment can be done by his PCP. 5. Patient has hyperlipidemia. Patient will continue with Lipitor 80 mg 1 pill daily. 6. Patient has GERD. He will continue with Protonix 40 mg 1 pill once daily. 7. Patient has CAD. He will continue with aspirin 81 mg daily. Patient also has a history of paroxysmal atrial fibrillation. Patient not a candidate for chronic anti coagulation therapy due to risk of fall, injury , and compliance. As mentioned previously cardiology plans to discuss the patient's previous heart catheterization with cardiovascular surgery to considered possible surgeon if future. Recommendation is for the patient follow up with cardiology in 1-2 weeks to further address. 8. Patient has diabetes. Hemoglobin A1c 5.9. Patient will continue with diet only. No medications needed at this time. Recommendation is to maintain blood sugars less 140 fasting and less than 200 after meals. Further adjustment and possible need for medication can be considered in the future. 9. Patient has chronic renal disease. This has remained stable. Recommendation is to recheck lab-BMP in 1-2 weeks to monitor his progress. Patient seen by nephrology. Recommendation is for the patient follow up with nephrology in 1-2 weeks to follow up this hospitalization. Recommendation on no further use of nonsteroidal anti-inflammatories. Future medications will need to be renally dosed and monitored. Diet: ADA Activity: Fall precautions Time spent managing pt's care (in minutes): 55
[2018-05-21 16:43] VITALS: BP 138/66; TEMP 97.5
--- NOTE | 2018-05-21 23:55 | PN ---
Date of Progress Note: 05/21/2018 Chief Complaint: Acute kidney injury, nonoliguric, associated with cardiorenal syndrome. History Of Present Illness: The patient was started on diuretics to control fluid overload and to provide management for congestive heart failure. Renal function has stabilized. BUN was than 33, creatinine 1.4. The patient is feeling better today. Review of Systems: Denies fever or chills. Physical Examination: Lungs: Few crackles at bases. Heart: S1, S2. Systolic murmur 2/6 over the left sternal border. Abdomen: Soft, benign. Extremities: 1+ edema. Laboratory Data: Sodium 142, potassium is 3.8, bicarbonate 25, BUN 33, creatinine 1.4, calcium 8.7. Impression And Plan: 1. Acute kidney injury, multifactorial, with an element of cardiorenal syndrome with superimposed contrast induced nephropathy. The patient was treated with diuretics for fluid overload. Continue p.o. diuretics for maintenance diuretic and management for volume control and congestive heart failure control. 2. Hypertension, blood pressure control optimal. Continue current treatment. 3. Respiratory failure, secondary to pulmonary edema, congestive heart failure , decompensated. Continue diuretics and low-sodium diet. 4. Chronic obstructive pulmonary disease exacerbation and pulmonary hypertension. Continue treatment with bronchodilators and steroids as needed. EB/MODL Voice ID: [id number] Report ID: [id number] ELIZABETH
== END 2018-05-21 16:40 | DRG 291 ==
LOC: ER 06:38 → ERHOLD 08:36 → 3RD-ICU 10:40 → 4TH 05-20 15:50
PROVIDERS: ADMIT Family Medicine; ATTEND Family Medicine
PROC: 5A09457 Assistance with Respiratory Ventilation, 24-96 Consecutive Hours, Continuous Positive Airway Pressure (ICD-10-PCS; principal; 2018-05-18)
DX: I13.0 Hypertensive heart and chronic kidney disease with heart failure and stage 1 through stage 4 chronic kidney disease, or unspecified chronic kidney disease (principal); I50.23 Acute on chronic systolic (congestive) heart failure; J96.01 Acute respiratory failure with hypoxia; J96.02 Acute respiratory failure with hypercapnia; N17.9 Acute kidney failure, unspecified; J44.1 Chronic obstructive pulmonary disease with (acute) exacerbation; I27.20 Pulmonary hypertension, unspecified; N14.1 Nephropathy induced by other drugs, medicaments and biological substances; T50.8X5A Adverse effect of diagnostic agents, initial encounter; Y92.239 Unspecified place in hospital as the place of occurrence of the external cause; I48.2 Chronic atrial fibrillation; K21.9 Gastro-esophageal reflux disease without esophagitis; E11.22 Type 2 diabetes mellitus with diabetic chronic kidney disease; N18.3 Chronic kidney disease, stage 3 (moderate); G47.33 Obstructive sleep apnea (adult) (pediatric); I25.10 Atherosclerotic heart disease of native coronary artery without angina pectoris; E78.5 Hyperlipidemia, unspecified; I73.9 Peripheral vascular disease, unspecified; E66.09 Other obesity due to excess calories; I25.2 Old myocardial infarction; M19.90 Unspecified osteoarthritis, unspecified site; Z68.32 Body mass index [BMI] 32.0-32.9, adult; Z91.14 Patient's other noncompliance with medication regimen; Z79.82 Long term (current) use of aspirin; Z79.01 Long term (current) use of anticoagulants; Z91.11 Patient's noncompliance with dietary regimen
CPT/HCPCS: 36415; 51702; 71045; 71275; 76770; 80048; 80053; 80061; 80076; 81003; 82550; 82553; 82570; 82805; 82962; 83036; 83605; 83735; 83880; 84145; 84156; 84439; 84443; 84484; 85025; 85610; 85730; 86850; 86900; 86901; 87040; 93005; 93306; 94640; 94660; 96374; 96375; 97163; 99291; J1650; J2405; J2920; J7030; J7605; Q9967

== ENCOUNTER 2018-09-28 18:56 | Inpatient (IN) | payer OTHER ==
--- OUTSIDE RECORDS SUMMARY | 2018-09-28 18:57 | XMS REPORT ---
:1945 Author Organization [facility] Address [address] [place] [address] Care Team Providers Name Role Phone JOSE VARGAS Unavailable Unavailable Problems This patient has no known problems. Allergies, Adverse Reactions, Alerts This patient has no known allergies or adverse reactions. Medications This patient has no known medications. Results Test Description Test Time Test Comments Text Results Atomic Results Result Comments HEMOGLOBIN A1C 2018-06-23 15:05:00 Test Item Value Reference Range Comments HEMOGLOBIN A1C (BEAKER) (test bplm=477) 6.3 % 4.3-6.1 RAD, CHEST, 1 VIEW, NON [id number] 13:40:00Reason for exam:->Preop for ACBShould this be performed at the bedside?->YesFINAL REPORT EXAM: Frontal chest radiograph HISTORY PROVIDED: Pre-op for ACB COMPARISON: None available IMPRESSION:There is a small right pleural effusion with adjacent atelectasis/consolidation. The lungs are otherwise clear. No discernible pneumothorax. The cardiac silhouette is enlarged. No suspicious osseous lesion. Degenerative changes of the spine are present. Signed: Dixon Vaughn MDRep[facility] Verified Date/Time: 06/23/2018 13:40:36 Reading Location: [facility] Mammo Reading Room URINALYSIS W/ [id number] 13:38:00 Test Item Value Reference Range Comments COLOR (BEAKER) (test wzlv=832) Light Yellow CLARITY (BEAKER) (test jspz=726) Clear SPECIFIC GRAVITY UA (BEAKER) (test sgpd=765) 1.009 1.001-1.035 PH UA (BEAKER) (test fubr=218) 7.0 5.0-8.0 PROTEIN UA (BEAKER) (test wufv=668) Negative Negative GLUCOSE UA (BEAKER) (test flmk=455) Negative Negative KETONES UA (BEAKER) (test gwmc=512) Negative Negative BILIRUBIN UA (BEAKER) (test govk=945) Negative Negative BLOOD UA (BEAKER) (test bhez=168) Negative Negative NITRITE UA (BEAKER) (test ibkw=110) Negative Negative LEUKOCYTE ESTERASE UA (BEAKER) (test rddy=105) Negative Negative UROBILINOGEN UA (BEAKER) (test umap=571) 0.2 mg/dL 0.2-1.0 RBC UA (BEAKER) (test rbtm=721) < /HPF WBC UA (BEAKER) (test lodv=573) 1 /HPF BACTERIA (BEAKER) (test dhoj=946) Rare SQUAMOUS EPITHELIAL (BEAKER) (test krdm=609) 1 /HPF HYALINE CASTS (BEAKER) (test khdl=213) 6 /LPF SOURCE(BEAKER) (test nhui=5139) Urine, Voided [id number] 13:32:00 Test Item Value Reference Range Comments THYROID STIMULATING HORMONE (BEAKER) (test 1.11 uIU/mL 0.35-4.94 gccx=483) [id number] 13:11:00 Test Item Value Reference Range Comments MAGNESIUM (BEAKER) (test qury=092) 2.6 mg/dL 1.6-2.6 COMPREHENSIVE METABOLIC [id number] 13:11:00 Test Item Value Reference Range Comments TOTAL PROTEIN (BEAKER) 7.2 gm/dL 6.0-8.3 (test onri=434) ALBUMIN (BEAKER) (test 4.3 g/dL 3.5-5.0 wxxd=2783) ALKALINE PHOSPHATASE 104 U/L 40-150 (BEAKER) (test srzk=544) BILIRUBIN TOTAL (BEAKER) 1.2 mg/dL 0.2-1.2 (test qjxz=438) SODIUM (BEAKER) (test 141 meq/L 136-145 pdor=411) POTASSIUM (BEAKER) (test 3.7 meq/L 3.5-5.1 nght=360) CHLORIDE (BEAKER) (test 103 meq/L 98-107 jast=432) CO2 (BEAKER) (test 29 meq/L 22-29 zlwd=630) BLOOD UREA NITROGEN 31 mg/dL 7-21 (BEAKER) (test dgtz=542) CREATININE (BEAKER) (test 1.06 mg/dL 0.57-1.25 zkai=412) GLUCOSE RANDOM (BEAKER) 124 mg/dL 70-105 (test hfdc=644) CALCIUM (BEAKER) (test 9.7 mg/dL 8.4-10.2 vgwg=934) AST (SGOT) (BEAKER) (test 31 U/L 5-34 lcoq=155) ALT (SGPT) (BEAKER) (test 52 U/L 6-55 xvei=509) EGFR (BEAKER) (test 69 mL/min/1.73 sq m ESTIMATED GFR IS NOT fgtj=0421) ACCURATE CREATININE CLEARANCE IN PREDICTING GLOMERULAR FILTRATION RATE. ESTIMATED GFR IS NOT APPLICABLE FOR DIALYSIS PATIENTS. LIPID [id number] 13:11:00 Test Item Value Reference Range Comments TRIGLYCERIDES (BEAKER) (test bray=194) 219 mg/dL CHOLESTEROL (BEAKER) (test gsxk=723) 203 mg/dL HDL CHOLESTEROL (BEAKER) (test qpml=243) 38 mg/dL LDL CHOLESTEROL CALCULATED (BEAKER) (test 121 mg/dL raym=970) Triglyceride Reference Range: Low Risk <150 Borderline 150- 199 High Risk 200-499 Very High Risk >=500Cholesterol Reference Range: Low Risk <200 Borderline 200-239 High Risk > 240HDL Cholesterol Reference Range: Low Risk >=60 High Risk <40LDL Cholesterol Reference Range: Optimal <100 Near Optimal 100-129 Borderline 130-159 High 160-189 Very High [id number] 13:06:00 Test Item Value Reference Range Comments PARTIAL THROMBOPLASTIN TIME (BEAKER) (test 36.8 seconds 22.5-36.0 sshu=116) PROTHROMBIN TIME/[id number] 13:05:00 Test Item Value Reference Range Comments PROTIME (BEAKER) (test wucm=951) 19.7 seconds 11.7-14.7 INR (BEAKER) (test mgkr=541) 1.7 <=5.9 RECOMMENDED COUMADIN/WARFARIN INR THERAPY RANGESSTANDARD DOSE: 2.0 - 3.0 Includes: PROPHYLAXIS forvenous thrombosis, systemic embolization; TREATMENT for venous thrombosis and/or pulmonary embolus.HIGH RISK: Target INR is 2.5-3.5 for patients with mechanical heart valves.CBC W/PLT COUNT & AUTO [id number] 12:53:00 Test Item Value Reference Range Comments WHITE BLOOD CELL COUNT (BEAKER) (test fkvd=654) 7.4 K/ L 3.5-10.5 RED BLOOD CELL COUNT (BEAKER) (test ffzg=230) 4.91 M/ L 4.63-6.08 HEMOGLOBIN (BEAKER) (test cnax=237) 14.5 GM/DL 13.7-17.5 HEMATOCRIT (BEAKER) (test ezob=309) 43.5 % 40.1-51.0 MEAN CORPUSCULAR VOLUME (BEAKER) (test pfud=996) 88.6 fL 79.0-92.2 MEAN CORPUSCULAR HEMOGLOBIN (BEAKER) (test 29.5 pg 25.7-32.2 eeui=641) MEAN CORPUSCULAR HEMOGLOBIN CONC (BEAKER) (test 33.3 GM/DL 32.3-36.5 zjzn=378) RED CELL DISTRIBUTION WIDTH (BEAKER) (test 14.6 % 11.6-14.4 auog=375) PLATELET COUNT (BEAKER) (test mzfj=659) 152 K/CU MM 150-450 MEAN PLATELET VOLUME (BEAKER) (test qjid=593) 13.1 fL 9.4-12.4 NUCLEATED RED BLOOD CELLS (BEAKER) (test 0 /100 WBC 0-0 smvr=979) NEUTROPHILS RELATIVE PERCENT (BEAKER) (test 71 % qeia=713) LYMPHOCYTES RELATIVE PERCENT (BEAKER) (test 20 % bcwu=601) MONOCYTES RELATIVE PERCENT (BEAKER) (test 8 % rrhl=166) EOSINOPHILS RELATIVE PERCENT (BEAKER) (test 0 % tlzb=878) BASOPHILS RELATIVE PERCENT (BEAKER) (test 0 % zjju=628) NEUTROPHILS ABSOLUTE COUNT (BEAKER) (test 5.23 K/ L 1.78-5.38 ajxs=262) LYMPHOCYTES ABSOLUTE COUNT (BEAKER) (test 1.46 K/ L 1.32-3.57 fttf=423) MONOCYTES ABSOLUTE COUNT (BEAKER) (test 0.61 K/ L 0.30-0.82 rtje=855) EOSINOPHILS ABSOLUTE COUNT (BEAKER) (test 0.03 K/ L 0.04-0.54 ikua=925) BASOPHILS ABSOLUTE COUNT (BEAKER) (test 0.02 K/ L 0.01-0.08 ydbf=263) IMMATURE GRANULOCYTES-RELATIVE PERCENT (BEAKER) 0 % 0-1 (test gacm=6296)
--- OUTSIDE RECORDS SUMMARY | 2018-09-28 18:57 | XMS REPORT | Clinical Summary ---
:1945 Author Organization [facility] Address [address] [place] [address] Care Team Providers Name Role Phone Pcp, No Primary Care Provider Unavailable Allergies No Known Allergies Medications Medication Sig Dispensed Refills Start Date End Date Status BROVANA 15 mcg/2 mL as needed. 0 05/22/2018 Active nebulizer solution atorvastatin Take 80 mg by 0 05/21/2018 Active (LIPITOR) 80 MG mouth daily. tablet furosemide (LASIX) Take 40 mg by 0 05/21/2018 Active 40 MG tablet mouth 2 (two) times daily. carvedilol (COREG) Take 12.5 mg 0 05/21/2018 Active 12.5 MG tablet by mouth 2 (two) times daily. valsartan (DIOVAN) Take 80 mg by 0 11/21/2017 Active 80 MG tablet mouth daily. pantoprazole Take 40 mg by 0 05/21/2018 Active (PROTONIX) 40 MG mouth daily. tablet rivaroxaban Take 20 mg by 0 07/25/2017 Active (XARELTO) 20 mg Tab mouth daily. tablet aspirin 81 MG EC Take 81 mg by 0 Active tablet mouth daily. budesonide-formotero Inhale 2 0 Active l (SYMBICORT) 80-4.5 puffs by mcg/actuation mouth via inhaler inhaler 2 (two) times daily. spironolactone Take 25 mg by 0 Active (ALDACTONE) 25 MG mouth daily. tablet amiodarone Take 200 mg 0 Active (PACERONE) 200 MG by mouth tablet daily. amiodarone Take 200 mg 0 07/31/2017 06/23/2018 Discontinued (PACERONE) 200 MG by mouth tablet daily. 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 Hypertension COPD (chronic obstructive pulmonary disease) Peripheral vascular disease Atrial fibrillation Hyperlipidemia Cardiomyopathy CHF (congestive heart failure) Encounters Date Type Specialty Care Team Description 06/29/2018 Anesthesia Event Chuck Stone MD 06/23/2018 Hospital Encounter Jeremy, Chronic atrial Joaquín Armijo, fibrillation (HCC) 06/23/2018 Office Visit Cardiology Jeremy, Essential hypertension; Joaquín Armijo, Chronic obstructive pulmonary disease, unspecified COPD type (HCC); 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 (HCC); Peripheral vascular disease (HCC); Chronic atrial fibrillation (HCC); Hyperlipidemia, unspecified hyperlipidemia type; Cardiomyopathy, unspecified type (HCC); Chronic systolic congestive heart failure (HCC) 06/23/2018 Orders Only General Internal Medicine after 09/27/2017 Family History Medical History Relation Name Comments Tuberculosis Father Arthritis Mother Heart disease Mother Relation Name Status Comments Father Mother Alive Social History Tobacco Use Types Packs/Day Years Used Date Former Smoker 0.5 50 Quit: 10/2017 Smokeless Tobacco: Never Used Tobacco Cessation: Counseling Given: No Alcohol Use Drinks/Week oz/Week Comments Yes 1 Cans of beer 0.6 Sex Assigned at Date Recorded Not on file Job Start Date Occupation Industry Not on file Not on file Not on file Travel History Travel Start Travel End No recent travel history available. Last Filed Vital Signs Vital Sign Reading Time Taken Blood Pressure 141/76 06/23/2018 12:05 PM CDT Pulse 70 06/23/2018 12:05 PM CDT Temperature 36.9 C (98.5 F) 06/23/2018 12:05 PM CDT Respiratory Rate 16 06/23/2018 12:05 PM CDT Oxygen Saturation 96% 06/23/2018 12:05 PM CDT Inhaled Oxygen Concentration - - Weight 102.7 kg (226 lb 8 oz) 06/23/2018 12:05 PM CDT Height 180.3 cm (5' 11") 06/23/2018 12:05 PM CDT Body Mass Index 31.59 06/23/2018 12:05 PM CDT Plan of Treatment Health Maintenance Due Date Last Done Comments INFLUENZA VACCINE 07/26/2018 Procedures Procedure Name Priority Date/Time Associated Comments Diagnosis TRANSFUSION SERVICE 06/24/2018 6:02 REPORT - SCAN PM CDT XR CHEST 1 VIEW Routine 06/23/2018 1:00 Results for this PORTABLE/BEDSIDE PM CDT procedure are in the results section. CBC W/PLT COUNT & AUTO Routine 06/23/2018 12:42 Results for this DIFFERENTIAL PM CDT procedure are in the results section. TYPE AND SCREEN, Routine 06/23/2018 12:42 Results for this AUTOMATED PM CDT procedure are in the results section. URINALYSIS W/ Routine 06/23/2018 12:42 Results for this MICROSCOPIC PM CDT procedure are in the results section. APTT Routine 06/23/2018 12:42 Results for this PM CDT procedure are in the results section. PROTHROMBIN TIME/INR Routine 06/23/2018 12:42 Results for this PM CDT procedure are in the results section. CBC W/PLT COUNT & AUTO Routine 06/23/2018 12:42 Results for this DIFFERENTIAL PM CDT procedure are in the results section. LIPID PANEL Routine 06/23/2018 12:42 Results for this PM CDT procedure are in the results section. TSH Routine 06/23/2018 12:42 Results for this PM CDT procedure are in the results section. HEMOGLOBIN A1C Routine 06/23/2018 12:42 Results for this PM CDT procedure are in the results section. COMPREHENSIVE Routine 06/23/2018 12:42 Results for this METABOLIC PANEL PM CDT procedure are in the results section. MAGNESIUM Routine 06/23/2018 12:42 Results for this PM CDT procedure are in the results section. ECG 12-LEAD Routine 06/23/2018 12:22 PM CDT Procedure Note - Interface, External Ris In - 06/23/2018 3:17 PM CDT Ventricular Rate 70 BPM Atrial Rate 227 BPM QRS Duration 122 ms Q-T Interval 494 ms QTC Calculation(Bazett) 533 ms P [place] -87 degrees R [place] -70 degrees T [place] 78 degrees Atrial flutter with variable A-V block Left anterior fascicular block Cannot rule out Inferior infarct (masked by fascicular block?) , age undetermined Abnormal ECG No previous ECGs available ECG 12-LEAD Routine 06/23/2018 12:22 PM CDT after 09/27/2017 Results TRANSFUSION SERVICE REPORT - SCAN (06/24/2018 6:02 PM CDT) Narrative Performed At XR chest 1 view portable / bedside (06/23/2018 1:00 PM CDT) Narrative Performed At FINAL REPORT [facility] EXAM: Frontal chest radiograph HISTORY PROVIDED: Pre-op for ACB COMPARISON: None available IMPRESSION: There is a small right pleural effusion with adjacent atelectasis/consolidation. The lungs are otherwise clear. No discernible pneumothorax. The cardiac silhouette is enlarged. No suspicious osseous lesion. Degenerative changes of the spine are present. Signed: Dixon Rico MD Report Verified Date/Time:06/23/2018 13:40:36 Reading Location: [facility] Reading Room Procedure Note Interface, External Ris In - 06/23/2018 1:42 PM CDT FINAL REPORT EXAM: Frontal chest radiograph HISTORY PROVIDED: Pre-op for ACB COMPARISON: None available IMPRESSION: There is a small right pleural effusion with adjacent atelectasis/consolidation. The lungs are otherwise clear. No discernible pneumothorax. The cardiac silhouette is enlarged. No suspicious osseous lesion. Degenerative changes of the spine are present. Signed: Dixon Rico MD Report Verified Date/Time: 06/23/2018 13:40:36 Reading Location: [facility] Mammo Reading Room Performing Organization Address City/State/Zipcode Phone Number GE RIS Type and screen, automated (06/23/2018 12:42 PM CDT) ABO/RH AUTOMATED (BEAKER) B POSITIVE [facility] Ab Scrn NEGATIVE [facility] Specimen Blood Performing Organization Address City/[facility]/Zipcode Phone Number [facility] [address] [place] [address] CBC with platelet count + automated diff (06/23/2018 12:42 PM CDT) WBC 7.4 3.5 - 10.5 K/L [facility] RBC 4.91 4.63 - 6.08 M/L [facility] Hemoglobin 14.5 13.7 - 17.5 GM/DL [facility] Hematocrit 43.5 40.1 - 51.0 % [facility] MCV 88.6 79.0 - 92.2 fL [facility] MCH 29.5 25.7 - 32.2 pg [facility] MCHC 33.3 32.3 - 36.5 GM/DL [facility] RDW 14.6 (H) 11.6 - 14.4 % [facility] Platelets 152 150 - 450 K/CU MM [facility] MPV 13.1 (H) 9.4 - 12.4 fL [facility] nRBC 0 0 - 0 /100 WBC [facility] % Neutros 71 % [facility] % Lymphs 20 % [facility] % Monos 8 % [facility] % Eos 0 % [facility] % Baso 0 % [facility] # Neutros 5.23 1.78 - 5.38 K/L [facility] # Lymphs 1.46 1.32 - 3.57 K/L [facility] # Monos 0.61 0.30 - 0.82 K/L [facility] # Eos 0.03 (L) 0.04 - 0.54 K/L [facility] # Baso 0.02 0.01 - 0.08 K/L [facility] Immature Granulocytes-Relative 0 0 - 1 % [facility] Specimen Blood Performing Organization Address City/State/Zipcode Phone Number [facility] [address] [place] [address] CENTER Urinalysis w/ Microscopic (06/23/2018 12:42 PM CDT) Color, UA Light Yellow [facility] Clarity, UA Clear [facility] Specific [place], UA 1.009 1.001 - 1.035 [facility] pH, UA 7.0 5.0 - 8.0 [facility] Protein, UA Negative Negative [facility] Glucose, UA Negative Negative [facility] Ketones, UA Negative Negative [facility] Bilirubin, UA Negative Negative [facility] Blood, UA Negative Negative [facility] Nitrite, UA Negative Negative [facility] Leukocytes, UA Negative Negative [facility] Urobilinogen, UA 0.2 0.2 - 1.0 mg/dL [facility] RBC, UA <1 /HPF [facility] WBC, UA 1 /HPF [facility] Bacteria, UA Rare [facility] Squam Epithel, UA 1 /HPF [facility] Hyaline Casts, UA 6 /LPF [facility] Specimen Source Urine, Voided [facility] Specimen Urine - Urine, Voided Performing Organization Address City/State/Zipcode Phone Number [address] [address] [place] aPTT (06/23/2018 12:42 PM CDT) PTT 36.8 (H) 22.5 - 36.0 seconds [facility] Specimen Blood Performing Organization Address City/State/Zipcode Phone Number [address] [address] [phone] [place] Prothrombin time/INR (06/23/2018 12:42 PM CDT) Protime 19.7 (H) 11.7 - 14.7 seconds [facility] INR 1.7 <=5.9 [facility] Specimen Blood Narrative Performed At [facility] RECOMMENDED COUMADIN/WARFARIN INR THERAPY RANGES STANDARD DOSE: 2.0 - 3.0 Includes: PROPHYLAXIS for venous thrombosis, systemic embolization; TREATMENT for venous thrombosis and/or pulmonary embolus. HIGH RISK: Target INR is 2.5-3.5 for patients with mechanical heart valves. Performing Organization Address City/[facility] Phone Number [address] [address] [phone] CENTER TSH (06/23/2018 12:42 PM CDT) TSH 1.11 0.35 - 4.94 uIU/mL [facility] Specimen Blood Performing Organization Address [facility] Phone Number [address] [address] CENTER Magnesium (06/23/2018 12:42 PM CDT) Magnesium 2.6 1.6 - 2.6 mg/dL [facility] Specimen Blood Performing Organization Address [facility] Phone Number [address] [address] [place] Hemoglobin A1c (06/23/2018 12:42 PM CDT) Hemoglobin A1C 6.3 (H) 4.3 - 6.1 % [facility] Specimen Blood Performing Organization Address [facility] Phone Number [address] [address] [phone] [place] Lipid panel (06/23/2018 12:42 PM CDT) Triglycerides 219 mg/dL [facility] Cholesterol 203 mg/dL [facility] HDL 38 mg/dL [facility] LDL Calculated 121 mg/dL [facility] Specimen Blood Narrative Performed At [facility] Triglyceride Reference Range: Low Risk <150 [id number] High Risk 200-499 Very High Risk>=500 Cholesterol Reference Range: Low Risk <200 [id number] High Risk>240 HDL Cholesterol Reference Range: Low Risk >=60 High Risk <40 LDL Cholesterol Reference Range: Optimal<100 Near [id number] Very High >=190 Performing Organization Address City/State/Zipcode Phone Number [facility] [address] [place] [address] [phone] CENTER Comprehensive metabolic panel (06/23/2018 12:42 PM CDT) Protein, Total 7.2 6.0 - 8.3 gm/dL [facility] Albumin 4.3 3.5 - 5.0 g/dL [facility] Alkaline Phosphatase 104 40 - 150 U/L [facility] Total Bilirubin 1.2 0.2 - 1.2 mg/dL [facility] Sodium 141 136 - 145 meq/L [facility] Potassium 3.7 3.5 - 5.1 meq/L [facility] Chloride 103 98 - 107 meq/L [facility] CO2 29 22 - 29 meq/L [facility] BUN 31 (H) 7 - 21 mg/dL [facility] Creatinine 1.06 0.57 - 1.25 mg/dL [facility] Glucose 124 (H) 70 - 105 mg/dL [facility] Calcium 9.7 8.4 - 10.2 mg/dL [facility] AST 31 5 - 34 U/L [facility] ALT 52 6 - 55 U/L [facility] EGFR 69Comment: ESTIMATED GFR mL/min/1.73 sq m [facility] IS NOT ACCURATE [facility] CREATININE CLEARANCE IN PREDICTING GLOMERULAR FILTRATION RATE. ESTIMATED GFR IS NOT APPLICABLE FOR DIALYSIS PATIENTS. Specimen Blood Performing Organization Address City/[facility]/Zipcode Phone Number [facility] [address] [place] [address] [phone] CENTER Electrocardiogram, 12-lead (06/23/2018 12:22 PM CDT) Narrative Performed At Ventricular Rate 70 BPM GE MUSE Atrial Rate 227 BPM QRS Duration 122 ms Q-T Interval 494 ms QTC Calculation(Bazett) 533 ms P [place] -87 degrees R [place] -70 degrees T [place] 78 degrees Atrial flutter with variable A-V block Left anterior fascicular block Cannot rule out Inferior infarct (masked by fascicular block?) , age undetermined Abnormal ECG No previous ECGs available Confirmed by MD Tidwell Roberto ([id number]) on 06/24/2018 10:45:48 AM Procedure Note Interface, External Ris In - 06/24/2018 10:45 AM CDT Ventricular Rate 70 BPM Atrial Rate 227 BPM QRS Duration 122 ms Q-T Interval 494 ms QTC Calculation(Bazett) 533 ms P [place] -87 degrees R [place] -70 degrees T [place] 78 degrees Atrial flutter with variable A-V block Left anterior fascicular block Cannot rule out Inferior infarct (masked by fascicular block?) , age undetermined Abnormal ECG No previous ECGs available Confirmed by MD Tidwell Roberto ([id number]) on 06/24/2018 10:45:48 AM Performing Organization Address City/State/Zipcode Phone Number CIRA SINGH after 09/27/2017 Insurance Payer Benefit Plan / Group Subscriber ID Type Phone Address MEDICARE MEDICARE A B xxxxxxxxx[place] [address] Advance Directives For more information, please contact:[facility] [place], [place] [phone] Code Status Date Activated Date Inactivated Comments Full Code 06/23/2018 12:29 PM 06/24/2018 4:32 AM This code status was determined by: Patient
[2018-09-28 19:09] LABS: Arterial Blood Carboxyhemoglob 0.6 % (0-1.5); Blood Gas Oxyhemoglobin 95.6 % (94-97); Blood O2 Saturation 97.2 % (92-98.5)
[2018-09-28 19:27] LABS: Absolute Lymphocytes (CBC) 5.1 K/uL (0.7-4.9); Absolute Monocytes 1.2 K/uL (0.1-1.3); Absolute Neutrophil 6.2 K/uL (1.8-8.0); Basophils % 1.5 % (0-1.3); Eosinophils % 1.2 % (0-4.4); Hematocrit 46.8 % (39.6-49.0); Lymphocytes % 39.5 % (15.3-44.8); MCH 30.8 pg (27.0-35.0); MCV 92.2 fL (80-100); MPV 11.8 fL (7.6-11.3); Monocytes % 9.3 % (3.3-12.3); RBC Red Blood Cell Count 5.07 M/uL (4.33-5.43)
[2018-09-28] MEDS ORDERED: FUROSEMIDE 100 MG/10 ML VIAL IV ONE (19:28)
[2018-09-28 19:30] LABS: Protime INR 1.02
[2018-09-28] MEDS ORDERED: MAGNESIUM HYDROXIDE 8% 30 ML PO PRN (19:37)
[2018-09-28] MEDS ORDERED: ACETAMINOPHEN 500 MG TAB PO PRN (19:37)
[2018-09-28] MEDS ORDERED: ONDANSETRON 4 MG/2 ML VIAL IV PRN (19:37)
[2018-09-28] MEDS ORDERED: ALPRAZOLAM 0.25 MG TABLET PO PRN (19:37)
--- NOTE | 2018-09-28 19:37 | RAD REPORT ---
EXAM DESCRIPTION: Deot Single View09/28/2018 7:21 pm CLINICAL HISTORY: Short of breath COMPARISON: April 2018 FINDINGS: Mild bilateral interstitial lung opacities suspected. Heart is moderately enlarged IMPRESSION: Mild CHF
--- NOTE | 2018-09-28 19:43 | EDPHYS ---
Physician Documentation [facility] Name: Mumtaz Gonzales Age: 73 yrs Sex: Male : 1945 Arrival Date: 09/28/2018 Time: 18:56 Bed 4 Private MD: ED Physician Mack Orozco HPI: 09/28 20:31 This 73 yrs old Male presents to ER via EMS with complaints of Shortness Of gs Breath. 20:31 The patient has shortness of breath at rest. Onset: The symptoms/episode began/occurred gs acutely. Duration: The symptoms are continuous. The patient's shortness of breath has no apparent modifying factors. Severity of symptoms: At their worst the symptoms were incapacitating in the emergency department the symptoms are unchanged. The patient has not experienced similar symptoms in the past. Historical: - Allergies: 19:04 NKDA; tw2 - Home Meds: 19:04 amiodarone 200 mg Oral tab 1 tab 2 times per day [Active]; atorvastatin 80 mg Oral tab tw2 1 tab once daily [Active]; carvedilol 25 mg Oral tab daily [Active]; Lasix 80 mg Oral tab 1 tab 2 times per day [Active]; - PMHx: 19:04 CHF; COPD; Hyperlipidemia; Myocardial infarction; tw2 - Immunization history:: Adult Immunizations. - Social history:: Smoking status: . - Ebola Screening: : Patient denies travel to an Ebola-affected area in the 21 days before illness onset. ROS: 20:31 Unable to obtain ROS due to patient distress. gs Exam: 20:31 Head/Face: Normocephalic, atraumatic. Eyes: Pupils equal round and reactive to light, gs extra-ocular motions intact. Lids and lashes normal. Conjunctiva and sclera are non-icteric and not injected. Cornea within normal limits. Periorbital areas with no swelling, redness, or edema. ENT: Nares patent. No nasal discharge, no septal abnormalities noted. Tympanic membranes are normal and external auditory canals are clear. Oropharynx with no redness, swelling, or masses, exudates, or evidence of obstruction, uvula midline. Mucous membranes moist. Neck: Trachea midline, no thyromegaly or masses palpated, and no cervical lymphadenopathy. Supple, full range of motion without nuchal rigidity, or vertebral point tenderness. No Meningismus. Chest/axilla: Normal chest wall appearance and motion. Nontender with no deformity. No lesions are appreciated. 20:31 Back: No spinal tenderness. No costovertebral tenderness. Full range of motion. Skin: Warm, dry with normal turgor. Normal color with no rashes, no lesions, and no evidence of cellulitis. MS/ Extremity: Pulses equal, no cyanosis. Neurovascular intact. Full, normal range of motion. Neuro: Awake and alert, GCS 15, oriented to person, place, time, and situation. Cranial nerves II-XII grossly intact. Motor strength 5/5 in all extremities. Sensory grossly intact. Cerebellar exam normal. Normal gait. 20:31 Constitutional: The patient appears alert, awake, in obvious distress, severely distressed. 20:31 Cardiovascular: Rate: tachycardic, Rhythm: regular, Pulses: no pulse deficits are appreciated, Edema: 1+ edema to level of left ankle and right ankle. 20:31 ECG was reviewed by the Attending Physician. 20:31 Respiratory: severe repiratory distress is noted, Respirations: labored breathing, Breath sounds: rales, that are moderate. 20:31 Abdomen/GI: Palpation: mild abdominal tenderness, in the left upper quadrant. Vital Signs: 19:00 BP 189 / 98; Pulse 92; Resp 16; Pulse Ox 97% on BiPAP; tw2 19:28 BP 171 / 91; Pulse 95; Resp 24; Temp 98.8; Pulse Ox 99% on BiPAP; Weight 108.86 kg; tl1 Height 5 ft. 9 in. (175.26 cm); 19:37 BP 149 / 80; Pulse 94; Resp 18; Pulse Ox 98% on BiPAP; tl1 20:48 BP 168 / 84; Pulse 98; Resp 20; Pulse Ox 100% on BiPAP; tl1 21:37 BP 145 / 76; Pulse 99; Resp 24; Pulse Ox 95% on BiPAP; Pain 0/10; tl1 19:28 Body Mass Index 35.44 (108.86 kg, 175.26 cm) tl1 19:00 16/8 rate 32, at 100% tw2 MDM: 18:59 Patient medically screened. 20:31 Differential diagnosis: Bronchitis CHF exacerbation, Chronic Obstructive Pulmonary gs Disease Myocardial Infarction pneumonia, Sepsis. Data reviewed: vital signs, nurses notes. 09/28 19:00 Order name: ABG; Complete Time: 19:43 09/28 19:00 Order name: Basic Metabolic Panel; Complete Time: 20:09 09/28 19:00 Order name: Blood Culture Adult (2) 09/28 19:00 Order name: CBC with Diff; Complete Time: 19:43 gs 09/28 19:00 Order name: CPK; Complete Time: 20:09 09/28 19:00 Order name: Lactate; Complete Time: 19:46 09/28 19:00 Order name: LFT's; Complete Time: 20:09 09/28 19:00 Order name: Lipase; Complete Time: 20:09 09/28 19:00 Order name: Procalcitonin; Complete Time: 20:09 09/28 19:00 Order name: Protime (+inr); Complete Time: 19:43 09/28 19:00 Order name: Troponin (emerg Dept Use Only); Complete Time: 20:09 09/28 19:00 Order name: Urine Microscopic Only 09/28 19:08 Order name: Glucose, Ancillary Testing; Complete Time: 19:43 EDMS 09/28 19:41 Order name: CBC with Automated Diff EDMS 09/28 19:00 Order name: BIPAP 09/28 19:00 Order name: Chest Single View XRAY; Complete Time: 19:43 gs 09/28 19:41 Order name: CBC with Automated Diff EDMS 09/28 19:41 Order name: Comprehensive Metabolic Panel EDMS 09/28 19:41 Order name: Comprehensive Metabolic Panel EDMS 09/28 19:41 Order name: Magnesium EDMS 09/28 19:41 Order name: Magnesium EDMS 09/28 19:41 Order name: Phosphorus EDMS 09/28 19:41 Order name: Phosphorus EDMS 09/28 19:41 Order name: NT PRO-BNP EDMS 09/28 19:41 Order name: NT PRO-BNP EDMS 09/28 20:47 Order name: Urine Dipstick--Ancillary (enter results) ms 09/28 20:58 Order name: Urine Dipstick-Ancillary EDMS 09/28 21:39 Order name: Lactate tl1 09/28 22:24 Order name: Lactate EDMS 09/28 19:00 Order name: Accucheck; Complete Time: 19:17 gs 09/28 19:00 Order name: Cardiac monitoring; Complete Time: 19:17 gs 09/28 19:00 Order name: EKG - Nurse/Tech; Complete Time: 19:17 gs 09/28 19:00 Order name: IV Saline Lock - Large Bore; Complete Time: 19:17 gs 09/28 19:00 Order name: Labs collected and sent; Complete Time: 19:17 gs 09/28 19:00 Order name: O2 Per Protocol; Complete Time: :17 gs 09/28 19:00 Order name: O2 Sat Monitoring; Complete Time: 19:17 gs 09/28 19:00 Order name: Urine Dipstick-Ancillary (obtain specimen); Complete Time: 21:39 gs 09/28 19:41 Order name: Heart Healthy EDMS 09/28 19:41 Order name: EKG Electrocardiogram; Complete Time: 20:31 EDMS 09/28 19:41 Order name: EKG Electrocardiogram; Complete Time: 20:53 EDMS EC:31 Rate is 90 beats/min. Rhythm is regular. CT interval is normal. QRS interval is gs prolonged. T waves are Inverted. T waves are Flattened. Clinical impression: NSR w/ Non-specific ST/T Changes and Abnormal EKG without significant change. Interpreted by me. Administered Medications: Discontinued: NS 0.9% 1000 ml IV at 1 bolus Per protocol; 1000 mL bolus 19:30 Drug: Lasix 80 mg Route: IVP; Infused Over: 4 mins; Site: right hand; tl1 21:33 Follow up: Response: No adverse reaction; Marked relief of symptoms; Other; patient tl1 voiding well 19:42 Not Given (wo): NS 0.9% (30 ml/kg) 30 ml/kg IV at bolus once; Sepsis Protocol gs 19:56 Drug: Cefepime 1 grams Route: IVPB; Rate: 200 ml/hr; Infused Over: 30 mins; Site: right tl1 hand; 20:49 Follow up: IV Status: Completed infusion tl1 20:22 Drug: NS 0.9% 1000 ml Route: IV; Rate: 1 bolus; Site: right hand; tl1 21:33 Follow up: IV Status: Completed infusion tl1 21:22 Not Given (Duplicate Order): SOLU-Medrol 60 mg IM once tl1 21:23 Drug: SOLU-Medrol 60 mg Route: IVP; Infused Over: 2 mins; Site: right hand; tl1 21:33 Follow up: Response: No adverse reaction; No change in condition tl1 Point of Care Testing: Blood Glucose: 19:06 Blood Glucose: 281 mg/dL; aa5 Ranges: Critical Glucose Levels:Adult <50 mg/dl or >400 mg/dl <40 mg/dl or >180 mg/dl Disposition: 20:31 Critical Care:. gs Disposition: 09/28/18 19:42 Hospitalization ordered by Oscar Rae for Inpatient Admission. Preliminary diagnosis are Acute respiratory failure with hypercapnia, Acute systolic (congestive) heart failure, Sepsis, unspecified organism. - Bed requested for Telemetry/MedSurg (Inpatient). - Status is Inpatient Admission. fc - Condition is Stable. - Problem is new. - Symptoms have improved. UTI on Admission? No Critical care time excluding procedures: 20:31 Critical care time: Bedside Care: 10 minutes, Consultation: 10 minutes, Family gs Intervention: 10 minutes. Total time: 30 minutes Signatures: Dispatcher [employer] EDMS Denise Ness RN TARIK fc Miranda Spaulding RN RN bb Nelly Vang RN RN tl1 Helen Weir RN RN cg Kelsey Sumner RN RN tw2 Mack Orozco MD MD Corrections: (The following items were deleted from the chart) 20:02 19:42 Hospitalization Ordered by Oscar Rae MD for Inpatient Admission. Preliminary cg diagnosis is Acute respiratory failure with hypercapnia; Acute systolic (congestive) heart failure. Bed requested for Telemetry/MedSurg (Inpatient). Status is Inpatient Admission. Condition is Stable. Problem is new. Symptoms have improved. UTI on Admission? No. gs 20:54 20:02 09/28/2018 19:42 Hospitalization Ordered by Oscar Rae MD for Inpatient gs Admission. Preliminary diagnosis is Acute respiratory failure with hypercapnia; Acute systolic (congestive) heart failure. Bed requested for Telemetry/MedSurg (Inpatient). Status is Inpatient Admission. Condition is Stable. Problem is new. Symptoms have improved. UTI on Admission? No. cg 22:47 20:54 09/28/2018 19:42 Hospitalization Ordered by Oscar Rae MD for Inpatient fc Admission. Preliminary diagnosis is Acute respiratory failure with hypercapnia; Acute systolic (congestive) heart failure; Sepsis, unspecified organism. Bed requested for Telemetry/MedSurg (Inpatient). Status is Inpatient Admission. Condition is Stable. Problem is new. Symptoms have improved. UTI on Admission? No. gs
--- NOTE | 2018-09-28 19:43 | ER ---
Nurse's Notes [facility] Name: Mumtaz Gonzales Age: 73 yrs Sex: Male : 1945 Arrival Date: 09/28/2018 Time: 18:56 Bed 4 Private MD: Diagnosis: Acute respiratory failure with hypercapnia;Acute systolic (congestive) heart failure;Sepsis, unspecified organism Presentation: 09/28 18:57 Presenting complaint: EMS states: pt was talking and ambulatory on scene, said he tw2 started feeling real short of breath for an hour now, is out of his inhaler, feels like his lungs are filling up, he was 84%RA on arrival, we put him on non rebreather he came up to 97%, on cpap we got him only to 91%, on the way here he started rubbing his chest, became diaphoretic, we gave him 4x 81mg asa. Transition of care: patient was not received from another setting of care. Onset of symptoms was September 28, 2018. Risk Assessment: Do you want to hurt yourself or someone else? Patient reports no desire to harm self or others. Care prior to arrival: Oxygen administered. via CPAP or BiPAP. 18:57 Method Of Arrival: EMS: [facility] tw2 18:57 Acuity: SHERLY 2 tw2 19:00 Initial Sepsis Screen: Does the patient meet any 2 criteria? RR > 20 per min. HR > 90 tl1 bpm. Yes Does the patient have a suspected source of infection? No. Patient's initial sepsis screen is negative. Triage Assessment: 19:00 General: Appears distressed. Respiratory: Onset: The symptoms/episode began/occurred tl1 gradually. Historical: - Allergies: 19:04 NKDA; tw2 - Home Meds: 19:04 amiodarone 200 mg Oral tab 1 tab 2 times per day [Active]; atorvastatin 80 mg Oral tab tw2 1 tab once daily [Active]; carvedilol 25 mg Oral tab daily [Active]; Lasix 80 mg Oral tab 1 tab 2 times per day [Active]; - PMHx: 19:04 CHF; COPD; Hyperlipidemia; Myocardial infarction; tw2 - Immunization history:: Adult Immunizations. - Social history:: Smoking status: . - Ebola Screening: : Patient denies travel to an Ebola-affected area in the 21 days before illness onset. Screenin:00 Abuse screen: Denies threats or abuse. Denies injuries from another. Nutritional tl1 screening: No deficits noted. Tuberculosis screening: No symptoms or risk factors identified. Fall Risk IV access (20 points). Assessment: 19:31 General: Appears distressed, Behavior is cooperative, appropriate for age. Pain: tl1 Complains of pain in diaphragm. Neuro: Level of Consciousness is awake, alert, obeys commands, Oriented to person, place, time. Cardiovascular: Reports diaphoresis, shortness of breath, Rhythm is irregular. Respiratory: Reports shortness of breath at rest labored breathing Airway is patent Trachea midline Respiratory effort is even, labored, Respiratory pattern is regular, symmetrical, tachypnea Breath sounds with crackles bilaterally. Breath sounds with rhonchi bilaterally. the patient has moderate shortness of breath. GI: Abdomen is distended, obese, Bowel sounds diminished in right upper quadrant, left upper quadrant, right lower quadrant and left lower quadrant Abd is soft X 4 quads. : No signs and/or symptoms were reported regarding the genitourinary system. EENT: No signs and/or symptoms were reported regarding the EENT system. Derm: No signs and/or symptoms reported regarding the dermatologic system. 21:36 Reassessment: Patient and/or family updated on plan of care and expected duration. Pain tl1 level reassessed. Patient states feeling better. Patient states symptoms have improved. Vital Signs: 19:00 BP 189 / 98; Pulse 92; Resp 16; Pulse Ox 97% on BiPAP; tw2 19:28 BP 171 / 91; Pulse 95; Resp 24; Temp 98.8; Pulse Ox 99% on BiPAP; Weight 108.86 kg; tl1 Height 5 ft. 9 in. (175.26 cm); 19:37 BP 149 / 80; Pulse 94; Resp 18; Pulse Ox 98% on BiPAP; tl1 20:48 BP 168 / 84; Pulse 98; Resp 20; Pulse Ox 100% on BiPAP; tl1 21:37 BP 145 / 76; Pulse 99; Resp 24; Pulse Ox 95% on BiPAP; Pain 0/10; tl1 19:28 Body Mass Index 35.44 (108.86 kg, 175.26 cm) tl1 19:00 16/8 rate 32, at 100% tw2 ED Course: 18:50 Patient arrived in ED. aa5 18:50 Inserted saline lock: 20 gauge in right hand, using aseptic technique. Blood collected. aa5 18:55 Inserted saline lock: 20 gauge in left antecubital area, using aseptic technique. IV aa5 inserted by Gabbie Tenorio RN. 18:57 Bed in low position. Call light in reach. monitoring coordinator on. Pulse ox on. NIBP on. tw2 18:59 Mack Orozco MD is Attending Physician. gs 18:59 Triage completed. tw2 19:00 Arm band placed on right wrist. tl1 19:00 No provider procedures requiring assistance completed. tl1 19:22 Chest Single View XRAY In Process Unspecified. EDMS 19:28 Nelly Vang, TARIK is Primary Nurse. tl1 19:41 Oscar Rae MD is Hospitalizing Provider. gs 20:30 BIPAP Sent. mw2 20:31 CBC with Automated Diff Sent. mw2 20:31 CBC with Automated Diff Sent. mw2 20:31 Phosphorus Sent. mw2 20:31 Magnesium Sent. mw2 20:31 Magnesium Sent. mw2 20:31 Comprehensive Metabolic Panel Sent. mw2 20:31 Comprehensive Metabolic Panel Sent. mw2 20:37 Radiology exam delayed due to PT UNABLE TO COME OFF BIPAP AT THIS TIME. vm2 20:52 Urine Dipstick--Ancillary (enter results) Sent. bb 20:53 NT PRO-BNP Sent. bb 20:53 Phosphorus Sent. bb 20:53 NT PRO-BNP Sent. bb 22:47 Patient admitted, IV remains in place. tl1 Administered Medications: Discontinued: NS 0.9% 1000 ml IV at 1 bolus Per protocol; 1000 mL bolus 19:30 Drug: Lasix 80 mg Route: IVP; Infused Over: 4 mins; Site: right hand; tl1 21:33 Follow up: Response: No adverse reaction; Marked relief of symptoms; Other; patient tl1 voiding well 19:42 Not Given (wo): NS 0.9% (30 ml/kg) 30 ml/kg IV at bolus once; Sepsis Protocol gs 19:56 Drug: Cefepime 1 grams Route: IVPB; Rate: 200 ml/hr; Infused Over: 30 mins; Site: right tl1 hand; 20:49 Follow up: IV Status: Completed infusion tl1 20:22 Drug: NS 0.9% 1000 ml Route: IV; Rate: 1 bolus; Site: right hand; tl1 21:33 Follow up: IV Status: Completed infusion tl1 21:22 Not Given (Duplicate Order): SOLU-Medrol 60 mg IM once tl1 21:23 Drug: SOLU-Medrol 60 mg Route: IVP; Infused Over: 2 mins; Site: right hand; tl1 21:33 Follow up: Response: No adverse reaction; No change in condition tl1 Point of Care Testing: Blood Glucose: 19:06 Blood Glucose: 281 mg/dL; aa5 Ranges: Intake: 21:37 PO: 0ml; IV: 400ml; Total: 400ml. tl1 Output: 21:37 Urine: 1600ml (Voided); Total: 1600ml. tl1 Outcome: 19:42 Decision to Hospitalize by Provider. 22:47 Patient left the ED. 22:47 Instructed on the need for admit. tl1 23:02 Admitted to Tele accompanied by nurse, via stretcher, with oxygen, with chart. tl1 23:02 Condition: improved Signatures: Dispatcher [employer] EDMS Denise Ness RN RN Miranda Spaulding RN RN bb Whit Monroy RN RN aa5 Nelly Vang RN RN tl1 Kelsey Sumner RN RN 2 S[facility]ha [facility] Mack Orozco MD MD Elizabeth Cornell 2 Corrections: (The following items were deleted from the chart) 19:06 18:56 Patient arrived in ED. tw2 aa5
[2018-09-28 19:49] LABS: ALT/SGPT 85 U/L (12-78); AST/SGOT 50 U/L (15-37); Albumin 3.4 g/dL (3.4-5.0); Alkaline Phosphatase 128 U/L (45-117); BUN Blood Urea Nitrogen 24 mg/dL (7-18); Bicarbonate 21 mmol/L (21-32); Bilirubin Direct < 0.1 mg/dL (0-0.2); Bilirubin Total 0.3 mg/dL (0.2-1.0); Creatine Phosphokinase 105 U/L (39-308); Glucose Level 308 mg/dL (74-106); Lipase 373 U/L (73-393); Potassium 4.1 mmol/L (3.5-5.1); Sodium Level 142 mmol/L (136-145); Troponin (Emerg Dept Use Only) 0.04 ng/mL (0.0-0.045)
[2018-09-28] MEDS: ALBUTEROL 2.5 MG/3 ML NEB SOL NEB SCH ×2 (20:00→22:40)
[2018-09-28] MEDS ORDERED: CEFEPIME 1 GM/100 ML BAG IV ONE (20:00)
[2018-09-28] MEDS ORDERED: NA CHLORIDE 0.9% 1,000 ML ONE (20:27)
[2018-09-28 20:56] LABS: Urine Blood NEGATIVE (NEG); Urine Glucose NEGATIVE (NEG); Urine Protein TRACE (NEG)
[2018-09-28] MEDS: SPIRONOLACTONE 25 MG TABLET PO SCH (21:00)
[2018-09-28] MEDS: FUROSEMIDE 40 MG/4 ML VIAL IV SCH (21:00)
[2018-09-28 21:05] LABS: Urine Bacteria <20 /HPF (NONE SEEN); Urine Culture Reflex Order REFLEXED; Urine RBC <5 /HPF (NONE SEEN)
[2018-09-28] MEDS ORDERED: METHYLPREDNISOLONE 125 MG INJ ONE (21:25)
[2018-09-28] MEDS ORDERED: METHYLPREDNISOLONE 125 MG INJ IV ONE (21:28)
[2018-09-28] MEDS ORDERED: ALBUMIN HUMAN 25% 100 ML IV ONE (21:31)
[2018-09-28] MEDS ORDERED: D5W 1,000 ML with NA BICARB 8.4% 100 MEQ IV SCH ×2 (22:00)
[2018-09-28] MEDS ORDERED: ARFORMOTEROL TARTRATE 15 MCG/2 ML VIAL.NEB ONE (22:17)
[2018-09-28] MEDS: ARFORMOTEROL TARTRATE 15 MCG/2 ML VIAL.NEB NEB SCH (22:40)
[2018-09-28] MEDS: IPRATROPIUM BROM 0.5MG/2.5ML NEB SCH (22:40)
[2018-09-28] MEDS ORDERED: SODIUM BICARB 50 MEQ/50ML VIAL ONE (23:00)
[2018-09-28] MEDS ORDERED: D5W 1,000 ML IV ONE (23:01)
[2018-09-28] MEDS: CARVEDILOL 12.5 MG TAB PO SCH (23:29)
[2018-09-28 23:41] VITALS: BMI 35.9
[2018-09-29] MEDS ORDERED: METHYLPREDNISOLONE 125 MG INJ IV SCH
[2018-09-29] MEDS: ALBUTEROL 2.5 MG/3 ML NEB SOL NEB SCH ×5 (02:20→19:24)
[2018-09-29] MEDS: IPRATROPIUM BROM 0.5MG/2.5ML NEB SCH ×4 (02:20→19:24)
[2018-09-29] MEDS: METHYLPREDNISOLONE 125 MG INJ IV SCH ×2 (05:41→12:00)
[2018-09-29 06:43] LABS: Absolute Lymphocytes (CBC) 0.6 K/uL (0.7-4.9); Absolute Monocytes 0.2 K/uL (0.1-1.3); Absolute Neutrophil 7.9 K/uL (1.8-8.0); Basophils % 0.2 % (0-1.3); Hematocrit 42.7 % (39.6-49.0); Lymphocytes % 7.3 % (15.3-44.8); MCH 30.2 pg (27.0-35.0); MCV 91.3 fL (80-100); MPV 11.6 fL (7.6-11.3); RBC Red Blood Cell Count 4.68 M/uL (4.33-5.43)
[2018-09-29 06:56] LABS: Albumin 3.5 g/dL (3.4-5.0); Bilirubin Total 0.5 mg/dL (0.2-1.0); Magnesium 2.3 mg/dL (1.8-2.4); Phosphorus 2.7 mg/dL (2.5-4.9); Potassium 3.6 mmol/L (3.5-5.1); Protein, Total 6.8 g/dL (6.4-8.2)
[2018-09-29] MEDS: ARFORMOTEROL TARTRATE 15 MCG/2 ML VIAL.NEB NEB SCH ×2 (07:40→19:24)
[2018-09-29 07:43] LABS: Blood Morphology Comment NOT SEEN (NOT SEEN); Platelet Estimate DECR; Platelets, Giant PRESENT; Urine White Blood Cell Casts OK
[2018-09-29] MEDS ORDERED: INFLUENZA VACCINE (for 3y+) 0.5 ML DOSE IMVAC ONE (08:00)
[2018-09-29] MEDS ORDERED: POTASSIUM 25 MEQ EFFERV TAB PO ONE (08:00)
[2018-09-29] MEDS ORDERED: ENOXAPARIN 40 MG/0.4 ML SQ SCH (09:00)
[2018-09-29] MEDS ORDERED: ATORVASTATIN 80 MG TAB PO SCH (09:00)
--- NOTE | 2018-09-29 10:15 | EKG ---
Test Date: 2018-09-28 Test Time: 18:53:34 Automotive Specialty Technician: GADIEL MEASUREMENT RESULTS: Intervals: Rate: 90 NM: 176 QRSD: 134 QT: 452 QTc: 552 [place]: P: NM: 176 QRS: -43 T: 90 INTERPRETIVE STATEMENTS: Normal sinus rhythm Left axis deviation Nonspecific intraventricular block Inferior infarct, age undetermined T wave abnormality, consider lateral ischemia Abnormal ECG Compared to ECG 05/18/2018 07:47:20 Left-axis deviation now present Myocardial infarct finding now present Ventricular premature complex(es) no longer present Electronically Signed On 09-29-18 10:15:02 OUTDOOR LANDSCAPE ARCHITECT by Zac Jaime
[2018-09-29] MEDS: FUROSEMIDE 40 MG/4 ML VIAL IV SCH (10:49)
[2018-09-29] MEDS: ASPIRIN EC 81 MG TAB PO SCH (10:49)
[2018-09-29] MEDS: PANTOPRAZOLE 40MG TABLET PO SCH (10:49)
[2018-09-29] MEDS: CARVEDILOL 12.5 MG TAB PO SCH ×2 (10:49→20:43)
--- NOTE | 2018-09-29 15:32 | P.PN ---
Subjective Date of Service: 09/29/18 Patient seen and examined at bedside with RN. Chart reviewed. Case discussed with patient at bedside. Currently patient is in acute distress with BiPAP on. Does state however feels much better than before. Shortness of breath is much better than before is well Review of Systems 10-point ROS is otherwise unremarkable Physical Examination - Vital Signs Temperature: 97.2 F Blood Pressure: 168/72 Pulse: 74 Respirations: 20 Pulse Ox (%): 93 - Physical Exam General: Alert, Oriented x3, Moderate distress HEENT: Atraumatic, PERRLA, EOMI Neck: Supple, JVD not distended Respiratory: Normal air movement, Crackles/rales, Expiratory wheezes, Inspiratory wheezes, Other (On BiPAP) Cardiovascular: Regular rate/rhythm, Normal S1 S2 Gastrointestinal: Normal bowel sounds, No tenderness Musculoskeletal: No tenderness Integumentary: No rashes Neurological: Normal speech, Normal tone, Normal affect Lymphatics: No axilla or inguinal lymphadenopathy - Studies Laboratory Data (last 24 hrs) 09/28/18 18:50: PT 12.0, INR 1.02 09/28/18 18:50: WBC 12.8 H, Hgb 15.6, Hct 46.8, Plt Count 214 09/28/18 18:50: Sodium 142, Potassium 4.1, BUN 24 H, Creatinine 2.40 H, Glucose 308 H, Total Bilirubin 0.3, AST 50 H, ALT 85 H, Alkaline Phosphatase 128 H, Lipase 373 Medications List Reviewed: Yes Assessment And Plan - Current Problems (Diagnosis) (1) Acute respiratory failure Onset Date: 11/23/17 Current Visit: No Status: Acute Plan: Acute on chronic respiratory failure most likely secondary to volume overload secondary to CHF exacerbation -will continue on IV Lasix along with BiPAP at this time -added spironolactone this time -would try to wean off of BiPAP to nasal cannula possible -once acute phase is resolved patient will need to be arranged for home oxygenation will test for oxygen here in the hospital Qualifiers: Respiratory failure complication: hypoxia Qualified Code(s): J96.01 - Acute respiratory failure with hypoxia (2) Acute on chronic systolic CHF (congestive heart failure) Onset Date: 11/23/17 Current Visit: No Status: Acute Plan: Acute on chronic systolic congestive heart failure -echocardiogram done 2 months ago with ejection fraction of 30-35% -currently on IV Lasix 80 mg daily. -BiPAP at this time as well -added spironolactone (3) COPD (chronic obstructive pulmonary disease) Onset Date: 07/27/17 Current Visit: No Status: Acute Plan: Acute or chronic COPD exacerbation most likely secondary to CHF exacerbation -BiPAP, duo nebs, steroids -weaned off of BiPAP as tolerated Qualifiers: COPD type: COPD with acute exacerbation Qualified Code(s): J44.1 - Chronic obstructive pulmonary disease with (acute) exacerbation (4) Atrial fibrillation Onset Date: 05/19/18 Current Visit: No Status: Chronic Qualifiers: Atrial fibrillation type: chronic Qualified Code(s): I48.2 - Chronic atrial fibrillation (5) Diabetes mellitus Onset Date: 07/27/17 Current Visit: No Status: Chronic Qualifiers: Diabetes mellitus type: type 2 Diabetes mellitus senior living insulin use: with senior living use Diabetes mellitus complication status: without complication Qualified Code(s): E11.9 - Type 2 diabetes mellitus without complications; Z79.4 - [facility] (current) use of insulin; Z79.4 - terminologist ( current) use of insulin; Z79.4 - [facility] (current) use of insulin; Z79.4 - terminologist (current) use of insulin (6) GERD (gastroesophageal reflux disease) Onset Date: 05/19/18 Current Visit: No Status: Chronic Qualifiers: Esophagitis presence: esophagitis presence not specified Qualified Code(s) : K21.9 - Gastro-esophageal reflux disease without esophagitis (7) Hyperlipidemia Current Visit: No Status: Chronic Qualifiers: Hyperlipidemia type: unspecified Qualified Code(s): E78.5 - Hyperlipidemia , unspecified (8) Hypertension Onset Date: 05/11/17 Current Visit: No Status: Chronic Qualifiers: Hypertension type: essential hypertension Qualified Code(s): I10 - Essential (primary) hypertension (9) Obesity Onset Date: 07/27/17 Current Visit: No Status: Chronic Qualifiers: Obesity type: due to excess calories Obesity classification: adult class 1 (BMI 30 - 34.9) Serious obesity comorbidity presence: with serious comorbidity Body mass index: BMI 32.0-32.9 Qualified Code(s): E66.09 - Other obesity due to excess calories; Z68.32 - Body mass index (BMI) 32.0-32.9, adult - Plan Pending clinical improvement at this time Discharge Plan: Home Plan to discharge in: 72 Hours - Code Status/Comfort Care Code Status Assessed: Yes Critical Care: No
--- NOTE | 2018-09-29 15:46 | P.HP ---
Certification for Inpatient Patient admitted to: Inpatient With expected LOS: >2 Midnights Patient will require the following post-hospital care: None Practitioner: I am a practitioner with admitting privileges, knowledge of patient current condition, hospital course, and medical plan of care. Services: Services provided to patient in accordance with Admission requirements found in Title 42 Section 412.3 of the Code of Federal Regulations Patient History Date of Service: 09/28/18 Reason for admission: Respiratory failure History of Present Illness: patient is a 73-year-old gentleman who came to the hospital with respiratory distress. Patient was having a difficult time breathing and he came into the emergency room for further evaluation. Patient was hypoxic static 70% on room air. Patient's lactic acid was elevated. Patient was initially being given IV fluids, that after sensing his clinical status these were stopped. Patient has a ejection fraction of 35%. We went ahead and diuresed him and started him on nebs and steroids for his COPD. Patient is clinically doing a little better. He is continuing to need BiPAP support. Will continue to wean him off the BiPAP gradually through the day. Hopefully once we get him diuresed appropriately, his respiratory status will improve. We need to be gentle with the diuresing because he does have acute kidney injury. His renal function is worsened from his last admission. Will get Nephrology to consult in the case with us. Patient will need close monitoring. He will be admitted to the hospital for evaluation. Allergies No Known Drug Allergies Allergy (Mild, Verified 05/18/18 20:17) NKA Home Medications: Amiodarone HCl [Pacerone] 200 mg PO BID 09/28/18 Atorvastatin Calcium [Lipitor] 80 mg PO DAILY 09/28/18 Carvedilol [Coreg] 12.5 mg PO BID 09/28/18 Furosemide [Lasix] 80 mg PO BID 09/28/18 - Past Medical/Surgical History Has patient received pneumonia vaccine in the past: Yes Diabetic: No -: Congestive heart failure; ejection fraction of 35% -: COPD -: Hypertension -: Atrial fibrillation -: Cyst on the back,neck,chest -: Former tobacco use -: Morbid obesity Past Surgical History: Reviewed- Non-Contributory Psychosocial/ Personal History: Patient lives by himself - Family History Father Medical History: Other (see notes) Notes: TB - Social History Smoking Status: Former smoker Alcohol use: No CD- Drugs: No Caffeine use: Yes Place of Residence: Home Review of Systems 10-point ROS is otherwise unremarkable Physical Examination - Vital Signs Temperature: 97.2 F Blood Pressure: 168/72 Pulse: 74 Respirations: 20 Pulse Ox (%): 93 - Physical Exam General: Alert, In no apparent distress, Oriented x3, Severe distress HEENT: Atraumatic, PERRLA, Mucous membr. moist/pink, EOMI, Sclerae nonicteric Neck: Supple, 2+ carotid pulse no bruit, No LAD, Without JVD or thyroid abnormality Respiratory: Diminished, Crackles/rales, Expiratory wheezes Cardiovascular: Regular rate/rhythm, Normal S1 S2, Systolic murmur Gastrointestinal: Normal bowel sounds, Soft and benign, Non-distended, No tenderness Musculoskeletal: No clubbing, No swelling, No tenderness Integumentary: No rashes Neurological: Normal gait, Normal speech, Normal strength at 5/5 x4 extr, Normal tone, Sensation intact, Cranial nerves 3-12 intact, Normal affect Lymphatics: No axilla or inguinal lymphadenopathy - Studies Laboratory Data (last 24 hrs) 09/28/18 18:50: PT 12.0, INR 1.02 09/28/18 18:50: WBC 12.8 H, Hgb 15.6, Hct 46.8, Plt Count 214 09/28/18 18:50: Sodium 142, Potassium 4.1, BUN 24 H, Creatinine 2.40 H, Glucose 308 H, Total Bilirubin 0.3, AST 50 H, ALT 85 H, Alkaline Phosphatase 128 H, Lipase 373 Assessment & Plan - Problems (Diagnosis) (1) Lactic acidosis Current Visit: Yes Status: Acute (2) Acute on chronic systolic CHF (congestive heart failure) Onset Date: 11/23/17 Current Visit: No Status: Acute (3) Acute respiratory failure Onset Date: 11/23/17 Current Visit: No Status: Acute Qualifiers: Respiratory failure complication: hypoxia Qualified Code(s): J96.01 - Acute respiratory failure with hypoxia (4) COPD (chronic obstructive pulmonary disease) Onset Date: 07/27/17 Current Visit: No Status: Acute Qualifiers: COPD type: COPD with acute exacerbation Qualified Code(s): J44.1 - Chronic obstructive pulmonary disease with (acute) exacerbation (5) Chronic renal disease Onset Date: 05/19/18 Current Visit: No Status: Acute Qualifiers: Chronic kidney disease stage: stage 2 (mild) Qualified Code(s): N18.2 - Chronic kidney disease, stage 2 (mild) (6) Pulmonary edema Onset Date: 05/11/17 Current Visit: No Status: Acute Qualifiers: Chronicity: acute Qualified Code(s): J81.0 - Acute pulmonary edema (7) Atrial fibrillation and flutter Onset Date: 08/05/17 Current Visit: No Status: Chronic (8) Diabetes mellitus Onset Date: 07/27/17 Current Visit: No Status: Chronic Qualifiers: Diabetes mellitus type: type 2 Diabetes mellitus vermin exterminator insulin use: with vermin exterminator use Diabetes mellitus complication status: without complication Qualified Code(s): E11.9 - Type 2 diabetes mellitus without complications; Z79.4 - middle or intermediate school principal (current) use of insulin; Z79.4 - alf ( current) use of insulin; Z79.4 - middle or intermediate school principal (current) use of insulin; Z79.4 - middle or intermediate school principal (current) use of insulin (9) GERD (gastroesophageal reflux disease) Onset Date: 05/19/18 Current Visit: No Status: Chronic Qualifiers: Esophagitis presence: esophagitis presence not specified Qualified Code(s) : K21.9 - Gastro-esophageal reflux disease without esophagitis (10) Hyperlipidemia Current Visit: No Status: Chronic Qualifiers: Hyperlipidemia type: unspecified Qualified Code(s): E78.5 - Hyperlipidemia , unspecified (11) Hypertension Onset Date: 05/11/17 Current Visit: No Status: Chronic Qualifiers: Hypertension type: essential hypertension Qualified Code(s): I10 - Essential (primary) hypertension (12) Obesity Onset Date: 07/27/17 Current Visit: No Status: Chronic Qualifiers: Obesity type: due to excess calories Obesity classification: adult class 1 (BMI 30 - 34.9) Serious obesity comorbidity presence: with serious comorbidity Body mass index: BMI 32.0-32.9 Qualified Code(s): E66.09 - Other obesity due to excess calories; Z68.32 - Body mass index (BMI) 32.0-32.9, adult - Plan 1. Echocardiogram reviewed 2. gentle diuresing with close monitoring of renal function 3. monitor hemodynamics closely 4. nephrologyconsultation 5. continue nebs and IV steroids 6. Strict I's and O's 7. Repeat CXR 8. Daily weights 9. slowly wean off of BiPAP 10. Renal ultrasound 11. GI and DVT prophylaxis Discharge Plan: Home Plan to discharge in: Greater than 2 days - Advance Directives Does patient have a Living Will: No Does patient have a Durable POA for Healthcare: No - Code Status/Comfort Care Code Status Assessed: Yes Code Status: Full Code Critical Care: Yes Time Spent Managing PTS Care (In Minutes): 60
[2018-09-29] MEDS: FUROSEMIDE 40 MG TABLET PO SCH (20:42)
[2018-09-29] MEDS: predniSONE 20 MG TAB PO SCH (20:43)
[2018-09-29] MEDS: AMIODARONE HCL 200 MG TAB PO SCH (20:43)
[2018-09-29] MEDS ORDERED: HOME MED 1 EA UNK (Furosemide [Lasix] 80 MG) PO SCH (21:00)
[2018-09-30] MEDS: ALBUTEROL 2.5 MG/3 ML NEB SOL NEB SCH ×4 (01:07→19:24)
[2018-09-30] MEDS: IPRATROPIUM BROM 0.5MG/2.5ML NEB SCH ×4 (01:07→19:24)
[2018-09-30 04:47] LABS: Absolute Lymphocytes (CBC) 0.9 K/uL (0.7-4.9); Absolute Monocytes 0.8 K/uL (0.1-1.3); Absolute Neutrophil 15.9 K/uL (1.8-8.0); Basophils % 0.2 % (0-1.3); Hematocrit 39.8 % (39.6-49.0); Lymphocytes % 4.9 % (15.3-44.8); MCH 30.6 pg (27.0-35.0); MCV 90.2 fL (80-100); MPV 11.6 fL (7.6-11.3); Monocytes % 4.3 % (3.3-12.3); RBC Red Blood Cell Count 4.41 M/uL (4.33-5.43)
[2018-09-30 05:32] LABS: Potassium 3.6 mmol/L (3.5-5.1)
[2018-09-30] MEDS ORDERED: POTASSIUM 25 MEQ EFFERV TAB PO ONE (05:37)
[2018-09-30] MEDS: ARFORMOTEROL TARTRATE 15 MCG/2 ML VIAL.NEB NEB SCH ×2 (08:19→19:24)
--- NOTE | 2018-09-30 08:30 | P.CNS ---
Date of Consult: 09/30/18 Chief Complaint: Respiratory failure History of Present Illness: Patient is 73 years of age with a history of COPD congestive heart failure at 2 days prior to admission he noticed some slight shortness of breath at night however on the day of his admission he is shortness of breath became suddenly worse started filling up with some fluid and appeared in the emergency room was placed on BiPAP and is doing much better Patient has a history of congestive heart failure and is followed up at the [facility] was scheduled to have bypass operation done 2 months ago. Unfortunately was not able to obtain a ride and had to cancel the procedure he is doing much better History of COPD uses albuterol nebulizer an inhaler on a p.r.n. basis is feeling much better Allergies No Known Drug Allergies Allergy (Mild, Verified 05/18/18 20:17) NKA Home Medications: Amiodarone HCl [Pacerone] 200 mg PO BID 09/28/18 Atorvastatin Calcium [Lipitor] 80 mg PO DAILY 09/28/18 Carvedilol [Coreg] 12.5 mg PO BID 09/28/18 Furosemide [Lasix] 80 mg PO BID 09/28/18 Budesonide/Formoterol Fumarate [Symbicort 160-4.5 Mcg Inhaler] 1 puff IH DAILY # 1 hfa.aer.ad 09/30/18 - Past Medical/Surgical History Diabetic: No -: Congestive heart failure; ejection fraction of 35% -: COPD -: Hypertension -: Atrial fibrillation -: Cyst on the back,neck,chest -: Former tobacco use -: Morbid obesity Psychosocial/ Personal History: Patient lives by himself - Family History Father Medical History: Other (see notes) Notes: TB - Social History Smoking Status: Unknown if ever smoked Alcohol use: No CD- Drugs: No Caffeine use: Yes Place of Residence: Home Review of Systems 10-point ROS is otherwise unremarkable General: Weakness Respiratory: Shortness of Breath Physical Examination Temp Pulse Resp BP Pulse Ox 97.3 F 61 16 159/67 H 93 09/30/18 04:00 09/30/18 04:00 09/30/18 04:00 09/30/18 04:00 09/30/18 04:00 General: Alert, Oriented x3 HEENT: Atraumatic Neck: Supple Respiratory: Clear to auscultation bilaterally Cardiovascular: No edema, Normal S1 S2, Irregular heart rate/rhythm Gastrointestinal: Normal bowel sounds, Soft and benign Musculoskeletal: No clubbing, No swelling - Problems (1) CHF exacerbation Onset Date: 09/29/18 Current Visit: Yes Status: Acute Plan: Patient is 73 years of age admitted with decompensated congestive heart failure he is ejection fraction is reduce was scheduled for a coronary artery bypass operation was not able to make it to [place] patient was hypoxic and a acidotic on admission Qualifiers: Heart failure type: systolic Qualified Code(s): I50.23 - Acute on chronic systolic (congestive) heart failure (2) COPD (chronic obstructive pulmonary disease) Onset Date: 07/27/17 Current Visit: No Status: Acute Plan: Patient has a history of COPD is on suboptimal therapy will need Symbicort and Spiriva I have faxed in a prescription for Symbicort continue using albuterol on a p.r.n. basis check for room-air oxygenation Qualifiers: COPD type: COPD with acute exacerbation Qualified Code(s): J44.1 - Chronic obstructive pulmonary disease with (acute) exacerbation
[2018-09-30] MEDS: predniSONE 20 MG TAB PO SCH ×2 (08:58→20:11)
[2018-09-30] MEDS: ASPIRIN EC 81 MG TAB PO SCH (08:58)
[2018-09-30] MEDS: PANTOPRAZOLE 40MG TABLET PO SCH (08:59)
[2018-09-30] MEDS: FUROSEMIDE 40 MG TABLET PO SCH ×2 (08:59→20:12)
[2018-09-30] MEDS: AMIODARONE HCL 200 MG TAB PO SCH (08:59)
[2018-09-30] MEDS: CARVEDILOL 12.5 MG TAB PO SCH (09:00)
[2018-09-30] MEDS ORDERED: ATORVASTATIN 80 MG TAB PO SCH (09:00)
[2018-09-30] MEDS ORDERED: NITROGLYCERIN 0.4 MG/TAB SL PRN (10:42)
--- NOTE | 2018-09-30 11:28 | EKG ---
Test Date: 2018-09-30 Test Time: 09:40:01 [employer]: YUE MEASUREMENT RESULTS: Intervals: Rate: 65 NC: QRSD: 114 QT: 626 QTc: 651 [place]: P: NC: QRS: -44 T: 229 INTERPRETIVE STATEMENTS: Atrial fibrillation Left axis deviation Anterior infarct, age undetermined Marked ST abnormality, possible inferolateral subendocardial injury Prolonged QT Abnormal ECG Compared to ECG 09/28/2018 18:53:34 ST (T wave) deviation now present Prolonged QT interval now present Sinus rhythm no longer present T-wave abnormality no longer present Possible ischemia no longer present Myocardial infarct finding still present Electronically Signed On 09-30-18 11:27:34 MANAGER SUPPLIER by Geo Cornelius
[2018-09-30 13:45] LABS: Urine Appearance CLEAR; Urine Bilirubin NEGATIVE (NEG); Urine Blood NEGATIVE (NEG); Urine Color YELLOW; Urine Glucose NEGATIVE (NEG); Urine Protein NEGATIVE (NEG); Urine Urobilinogen 0.2 mg/dL (0.2-1.0)
[2018-09-30 14:05] LABS: Urine Microscopic Reflex NO UMIC
--- NOTE | 2018-09-30 16:19 | CON ---
Date of Consultation: 09/30/2018 The patient was admitted on 09/28/[address] Kaiser's service. I saw the patient on 09/30/2018. Reason For Consultation: Unstable angina and coronary artery disease. History Of Present Illness: Mr. Gonzales is a 73-year-old white male. He is well known to me from previo us office visits and admissions. He had been seen in the past for subendocardial [place] and underwent a heart catheterization revealing severe coronary artery disease requiring surgery. He saw Dr. Luna and then was actually set up for an open heart surgery, but could not find a ride to take him to the hospital, so the surgery was canceled. He also has a history of dyslipidemia, atrial fibrillation, hypertension, diastolic congestive heart failure, and severe COPD. He is morbidly obese and a former tobacco user. He has a history of chronic systolic congestive heart failure with an ejection fracti on of 35%. He was admitted on 09/28/2018 with COPD exacerbation, but while he was here developed zaina e chest pain. I was asked to see him. Past Medical History: As stated above. Allergies: NONE. Review of Systems: Negative. Social History: Negative. Family History: Noncontributory. Present Medications: Include albuterol inhalers, Xanax, amiodarone 200 b.i.d., Brovana, aspirin, Lip itor, Coreg, Lasix 80 mg b.i.d., and he takes spironolactone 25 mg 1 p.o. b.i.d. Physical Examination: Vital Signs: He was in atrial fibrillation. Blood pressure is 140/60, pulse is 63. His respiratory rate is 20. He is afebrile. His O2 saturation was 98% on a CPAP BiPAP. His last blood gas is adeq uate. HEENT: Negative. Neck: Supple. No bruit. Chest: Revealed wheezing throughout. Cardiac: Revealed a regular rhythm and rate without any murmurs, gallops, or rubs. Abdomen: Very obese but benign. Extremities: Revealed 1+ edema. Diagnostic Data: EKG showed atrial fibrillation, rate of 60, creatinine is 1.0. His white count is 17,000, hemoglobin 13.5. His troponin is 0.06. BNP is 7781. Impression: 1.He has coronary artery disease with stable angina pattern. 2.Chronic obstructive pulmonary disease. 3.Atrial fibrillation with rate control on amiodarone. 4.Hypertension. 5.Renal insufficiency. 6.Elevated white count probably secondary to steroids. I agree with his present regimen. I agree with mild diuresis. I agree with the carvedilol. I think we need to consider taking him off amiodarone and increase carvedilol for rate control. He really s hould be on an anticoagulant eventually. I am going to contact Dr. Joaquín Luna and see if he is able to transfer him for heart surgery in the near future. SARAH/GISEL Voice ID: [id number] Report ID: [id number]
--- NOTE | 2018-09-30 16:21 | P.PN ---
Subjective Date of Service: 09/30/18 Chief Complaint: Respiratory failure Patient seen and examined at bedside with RN. Chart reviewed. Case discussed with patient at bedside. Patient is currently complaining of having some left- sided chest pain that is sharp in nature. Patient was supposed to be getting his CABG done 3 months ago however due to having no ride he was not able to follow up with his cardiology. Troponin and EKG were done here in the hospital today. Review of Systems 10-point ROS is otherwise unremarkable Physical Examination - Vital Signs Temperature: 98.9 F Blood Pressure: 131/63 Pulse: 66 Respirations: 20 Pulse Ox (%): 96 - Physical Exam General: Alert, Moderate distress, Other (On BiPAP) HEENT: Atraumatic, PERRLA, EOMI Neck: Supple, JVD not distended Respiratory: Clear to auscultation bilaterally, Normal air movement Cardiovascular: Regular rate/rhythm, Normal S1 S2 Gastrointestinal: Normal bowel sounds, No tenderness Musculoskeletal: No tenderness Integumentary: No rashes Neurological: Normal speech, Normal tone, Normal affect Lymphatics: No axilla or inguinal lymphadenopathy - Studies Medications List Reviewed: Yes Assessment And Plan - Current Problems (Diagnosis) (1) Acute respiratory failure Onset Date: 11/23/17 Current Visit: No Status: Acute Plan: Acute on chronic respiratory failure most likely secondary to volume overload secondary to CHF exacerbation and COPD -Lasix BID 80mg PO -continue with spironolactone along with beta-dominic -would try to wean off of BiPAP to nasal cannula possible -once acute phase is resolved patient will need to be arranged for home oxygenation will test for oxygen here in the hospital Qualifiers: Respiratory failure complication: hypoxia Qualified Code(s): J96.01 - Acute respiratory failure with hypoxia (2) Acute on chronic systolic CHF (congestive heart failure) Onset Date: 11/23/17 Current Visit: No Status: Acute Plan: Acute on chronic systolic congestive heart failure -echocardiogram done 2 months ago with ejection fraction of 30-35% -on PO Lasix 80 mg BID now -BiPAP at this time as well -added spironolactone -Cardiology consulted. (3) COPD (chronic obstructive pulmonary disease) Onset Date: 07/27/17 Current Visit: No Status: Acute Plan: Acute or chronic COPD exacerbation most likely secondary to CHF exacerbation -BiPAP, duo nebs, steroids -weaned off of BiPAP as tolerated Qualifiers: COPD type: COPD with acute exacerbation Qualified Code(s): J44.1 - Chronic obstructive pulmonary disease with (acute) exacerbation (4) Atrial fibrillation Onset Date: 05/19/18 Current Visit: No Status: Chronic Plan: . Amiodarone and increase Coreg per cardiology recommendation at this time. Qualifiers: Atrial fibrillation type: chronic Qualified Code(s): I48.2 - Chronic atrial fibrillation (5) Diabetes mellitus Onset Date: 07/27/17 Current Visit: No Status: Chronic Qualifiers: Diabetes mellitus type: type 2 Diabetes mellitus exterminator helper insulin use: with exterminator helper use Diabetes mellitus complication status: without complication Qualified Code(s): E11.9 - Type 2 diabetes mellitus without complications; Z79.4 - alf (current) use of insulin; Z79.4 - local intermodal truck driver ( current) use of insulin; Z79.4 - alf (current) use of insulin; Z79.4 - alf (current) use of insulin (6) GERD (gastroesophageal reflux disease) Onset Date: 05/19/18 Current Visit: No Status: Chronic Qualifiers: Esophagitis presence: esophagitis presence not specified Qualified Code(s) : K21.9 - Gastro-esophageal reflux disease without esophagitis (7) Hyperlipidemia Current Visit: No Status: Chronic Qualifiers: Hyperlipidemia type: unspecified Qualified Code(s): E78.5 - Hyperlipidemia , unspecified (8) Hypertension Onset Date: 05/11/17 Current Visit: No Status: Chronic Qualifiers: Hypertension type: essential hypertension Qualified Code(s): I10 - Essential (primary) hypertension (9) Obesity Onset Date: 07/27/17 Current Visit: No Status: Chronic Qualifiers: Obesity type: due to excess calories Obesity classification: adult class 1 (BMI 30 - 34.9) Serious obesity comorbidity presence: with serious comorbidity Body mass index: BMI 32.0-32.9 Qualified Code(s): E66.09 - Other obesity due to excess calories; Z68.32 - Body mass index (BMI) 32.0-32.9, adult - Plan Pending clinical improvement at this time Discharge Plan: Home Plan to discharge in: 48 Hours - Code Status/Comfort Care Code Status Assessed: Yes Critical Care: No
[2018-09-30] MEDS: ATORVASTATIN 80 MG TAB PO SCH (20:12)
[2018-09-30] MEDS: CARVEDILOL 25 MG TAB PO SCH (20:15)
[2018-10-01] MEDS: IPRATROPIUM BROM 0.5MG/2.5ML NEB SCH ×4 (01:40→19:57)
[2018-10-01] MEDS: ALBUTEROL 2.5 MG/3 ML NEB SOL NEB SCH ×4 (01:40→19:57)
[2018-10-01 06:15] LABS: Absolute Monocytes 0.8 K/uL (0.1-1.3); Absolute Neutrophil 11.3 K/uL (1.8-8.0); Basophils % 0.1 % (0-1.3); Hematocrit 39.4 % (39.6-49.0); Lymphocytes % 7.9 % (15.3-44.8); MCH 30.6 pg (27.0-35.0); MCV 90.4 fL (80-100); Monocytes % 5.9 % (3.3-12.3); RBC Red Blood Cell Count 4.36 M/uL (4.33-5.43)
[2018-10-01 06:24] LABS: Potassium 3.8 mmol/L (3.5-5.1)
[2018-10-01] MEDS ORDERED: POTASSIUM 25 MEQ EFFERV TAB PO ONE (06:51)
[2018-10-01] MEDS: ARFORMOTEROL TARTRATE 15 MCG/2 ML VIAL.NEB NEB SCH ×2 (07:44→19:57)
[2018-10-01] MEDS: predniSONE 20 MG TAB PO SCH ×2 (09:37→21:28)
[2018-10-01] MEDS: CARVEDILOL 25 MG TAB PO SCH ×2 (09:37→21:28)
[2018-10-01] MEDS: FUROSEMIDE 40 MG TABLET PO SCH ×2 (09:37→21:28)
[2018-10-01] MEDS: ASPIRIN EC 81 MG TAB PO SCH (09:37)
[2018-10-01] MEDS: PANTOPRAZOLE 40MG TABLET PO SCH (09:37)
--- NOTE | 2018-10-01 13:46 | PN ---
Mr. Gonzales was seen yesterday. He has congestive heart failure, COPD, peripheral arterial disease, chaparro re coronary artery disease. His main problem at this point is COPD exacerbation and angina. The pat ient has documented LAD and circumflex disease that is severe. He has a total occlusion of his RCA. His catheterization had to be done by a left brachial approach, because he has a totally occluded ao rta below the renal. He has seen Dr. Weinstein in preparation for surgery, but never showed up for his operation. We are awaiting response from Dr. Weinstein as far as transfer him to [place]. I have a fee ling he needs his COPD and CHF fine tuned first before he can go through surgery. SARAH/GISEL Voice ID: [id number] Report ID: [id number]
--- NOTE | 2018-10-01 14:03 | P.PN ---
Subjective Date of Service: 10/01/18 Chief Complaint: Respiratory failure Patient seen and examined at bedside with RN. Chart reviewed. Case discussed with patient at bedside. Patient is currently complaining of having some left- sided chest pain that is sharp in nature. Patient was supposed to be getting his CABG done 3 months ago however due to having no ride he was not able to follow up with his cardiology. Patient continues to be on BiPAP at this time. Review of Systems 10-point ROS is otherwise unremarkable Physical Examination - Vital Signs Temperature: 98.1 F Blood Pressure: 192/84 Pulse: 51 Respirations: 21 Pulse Ox (%): 97 - Physical Exam General: Alert, In no apparent distress HEENT: Atraumatic, PERRLA, EOMI Neck: Supple, JVD not distended Respiratory: Normal air movement, Expiratory wheezes, Inspiratory wheezes Cardiovascular: Regular rate/rhythm, Normal S1 S2 Gastrointestinal: Normal bowel sounds, No tenderness Musculoskeletal: No tenderness Integumentary: No rashes Neurological: Normal speech, Normal tone, Normal affect Lymphatics: No axilla or inguinal lymphadenopathy - Studies Medications List Reviewed: Yes Assessment And Plan - Current Problems (Diagnosis) (1) Acute respiratory failure Onset Date: 11/23/17 Current Visit: No Status: Acute Plan: Acute on chronic respiratory failure most likely secondary to volume overload secondary to CHF exacerbation and COPD -Lasix BID 80mg PO and BIPAP for now -continue with spironolactone along with beta-dominic for Class III CHF -would try to wean off from BiPAP to nasal cannula when possible Qualifiers: Respiratory failure complication: hypoxia Qualified Code(s): J96.01 - Acute respiratory failure with hypoxia (2) Acute on chronic systolic CHF (congestive heart failure) Onset Date: 11/23/17 Current Visit: No Status: Acute Plan: Acute on chronic systolic congestive heart failure -echocardiogram done 2 months ago with ejection fraction of 30-35% -on PO Lasix 80 mg BID now -BiPAP at this time as well -added spironolactone -Cardiology consulted. Appreciate Reccs -Severe CAD disease - Needs to have CABG. Awaiting Dr Weinstein approval for transfer (3) COPD (chronic obstructive pulmonary disease) Onset Date: 07/27/17 Current Visit: No Status: Acute Plan: Acute or chronic COPD exacerbation most likely secondary to CHF exacerbation -BiPAP, duo nebs, steroids -weaned off BiPAP as tolerated Qualifiers: COPD type: COPD with acute exacerbation Qualified Code(s): J44.1 - Chronic obstructive pulmonary disease with (acute) exacerbation (4) Atrial fibrillation Onset Date: 05/19/18 Current Visit: No Status: Chronic Plan: . Amiodarone and increase Coreg per cardiology recommendation at this time. Qualifiers: Atrial fibrillation type: chronic Qualified Code(s): I48.2 - Chronic atrial fibrillation (5) Diabetes mellitus Onset Date: 07/27/17 Current Visit: No Status: Chronic Qualifiers: Diabetes mellitus type: type 2 Diabetes mellitus svp digital sales food & cooking insulin use: with svp digital sales food & cooking use Diabetes mellitus complication status: without complication Qualified Code(s): E11.9 - Type 2 diabetes mellitus without complications; Z79.4 - half-way (current) use of insulin; Z79.4 - fusing machine feeder ( current) use of insulin; Z79.4 - half-way (current) use of insulin; Z79.4 - half-way (current) use of insulin (6) GERD (gastroesophageal reflux disease) Onset Date: 05/19/18 Current Visit: No Status: Chronic Qualifiers: Esophagitis presence: esophagitis presence not specified Qualified Code(s) : K21.9 - Gastro-esophageal reflux disease without esophagitis (7) Hyperlipidemia Current Visit: No Status: Chronic Qualifiers: Hyperlipidemia type: unspecified Qualified Code(s): E78.5 - Hyperlipidemia , unspecified (8) Hypertension Onset Date: 05/11/17 Current Visit: No Status: Chronic Qualifiers: Hypertension type: essential hypertension Qualified Code(s): I10 - Essential (primary) hypertension (9) Obesity Onset Date: 07/27/17 Current Visit: No Status: Chronic Qualifiers: Obesity type: due to excess calories Obesity classification: adult class 1 (BMI 30 - 34.9) Serious obesity comorbidity presence: with serious comorbidity Body mass index: BMI 32.0-32.9 Qualified Code(s): E66.09 - Other obesity due to excess calories; Z68.32 - Body mass index (BMI) 32.0-32.9, adult - Plan Pending clinical improvement at this time Discharge Plan: Transfer Plan to discharge in: 48 Hours - Code Status/Comfort Care Code Status Assessed: Yes Critical Care: No
[2018-10-01] MEDS: SPIRONOLACTONE 25 MG TABLET PO SCH (21:27)
[2018-10-01] MEDS: ATORVASTATIN 80 MG TAB PO SCH (21:28)
[2018-10-02] MEDS: ALBUTEROL 2.5 MG/3 ML NEB SOL NEB SCH ×3 (02:05→14:00)
[2018-10-02] MEDS: IPRATROPIUM BROM 0.5MG/2.5ML NEB SCH ×3 (02:10→14:00)
[2018-10-02 05:26] LABS: Absolute Monocytes 0.6 K/uL (0.1-1.3); Basophils % 0.3 % (0-1.3); Hematocrit 39.7 % (39.6-49.0); Lymphocytes % 11.8 % (15.3-44.8); MCH 31.6 pg (27.0-35.0); MCV 90.4 fL (80-100); MPV 10.8 fL (7.6-11.3); Monocytes % 7.4 % (3.3-12.3)
[2018-10-02 05:42] LABS: Potassium 3.8 mmol/L (3.5-5.1)
[2018-10-02] MEDS ORDERED: POTASSIUM CL SA 10 MEQ TAB PO ONE (06:46)
[2018-10-02] MEDS: ARFORMOTEROL TARTRATE 15 MCG/2 ML VIAL.NEB NEB SCH (07:58)
[2018-10-02 08:56] VITALS: O2SAT 98
[2018-10-02] MEDS: ASPIRIN EC 81 MG TAB PO SCH (09:33)
[2018-10-02] MEDS: predniSONE 20 MG TAB PO SCH (09:33)
[2018-10-02] MEDS: FUROSEMIDE 40 MG TABLET PO SCH (09:33)
[2018-10-02] MEDS: CARVEDILOL 25 MG TAB PO SCH (09:33)
[2018-10-02] MEDS: SPIRONOLACTONE 25 MG TABLET PO SCH (09:33)
[2018-10-02] MEDS: PANTOPRAZOLE 40MG TABLET PO SCH (09:34)
[2018-10-02 10:48] VITALS: TEMP 97
--- NOTE | 2018-10-02 12:21 | P.DS ---
Admission Date: 09/28/18 Discharge Date: 10/02/18 Disposition: ROUTINE DISCHARGE Discharge Condition: GOOD Reason for Admission: Respiratory failure - Problems (1) Acute respiratory failure Onset Date: 11/23/17 Current Visit: No Status: Resolved Qualifiers: Respiratory failure complication: hypoxia Qualified Code(s): J96.01 - Acute respiratory failure with hypoxia (2) Acute on chronic systolic CHF (congestive heart failure) Onset Date: 11/23/17 Current Visit: No Status: Resolved (3) COPD (chronic obstructive pulmonary disease) Onset Date: 07/27/17 Current Visit: No Status: Resolved Qualifiers: COPD type: COPD with acute exacerbation Qualified Code(s): J44.1 - Chronic obstructive pulmonary disease with (acute) exacerbation (4) Atrial fibrillation Onset Date: 05/19/18 Current Visit: No Status: Chronic Qualifiers: Atrial fibrillation type: chronic Qualified Code(s): I48.2 - Chronic atrial fibrillation (5) Diabetes mellitus Onset Date: 07/27/17 Current Visit: No Status: Chronic Qualifiers: Diabetes mellitus type: type 2 Diabetes mellitus exterminator helper insulin use: with halfway use Diabetes mellitus complication status: without complication Qualified Code(s): E11.9 - Type 2 diabetes mellitus without complications; Z79.4 - long-term (current) use of insulin (6) GERD (gastroesophageal reflux disease) Onset Date: 05/19/18 Current Visit: No Status: Chronic Qualifiers: Esophagitis presence: esophagitis presence not specified Qualified Code(s) : K21.9 - Gastro-esophageal reflux disease without esophagitis (7) Hyperlipidemia Current Visit: No Status: Chronic Qualifiers: Hyperlipidemia type: unspecified Qualified Code(s): E78.5 - Hyperlipidemia , unspecified (8) Hypertension Onset Date: 05/11/17 Current Visit: No Status: Chronic Qualifiers: Hypertension type: essential hypertension Qualified Code(s): I10 - Essential (primary) hypertension (9) Obesity Onset Date: 07/27/17 Current Visit: No Status: Chronic Qualifiers: Obesity type: due to excess calories Obesity classification: adult class 1 (BMI 30 - 34.9) Serious obesity comorbidity presence: with serious comorbidity Body mass index: BMI 32.0-32.9 Qualified Code(s): E66.09 - Other obesity due to excess calories; Z68.32 - Body mass index (BMI) 32.0-32.9, adult Brief History of Present Illness: patient is a 73-year-old gentleman who came to the hospital with respiratory distress. Patient was having a difficult time breathing and he came into the emergency room for further evaluation. Patient was hypoxic static 70% on room air. Patient's lactic acid was elevated. Patient was initially being given IV fluids, that after sensing his clinical status these were stopped. Patient has a ejection fraction of 35%. We went ahead and diuresed him and started him on nebs and steroids for his COPD. Patient is clinically doing a little better. He is continuing to need BiPAP support. Will continue to wean him off the BiPAP gradually through the day. Hopefully once we get him diuresed appropriately, his respiratory status will improve. We need to be gentle with the diuresing because he does have acute kidney injury. His renal function is worsened from his last admission. Will get Nephrology to consult in the case with us. Patient will need close monitoring. He will be admitted to the hospital for evaluation. Hospital Course: Overall during the hospital stay patient remained stable Patient was admitted to the hospital for acute respiratory failure most likely secondary to CHF versus COPD exacerbation. Patient was started on duo nebs, steroids, BiPAP here in the hospital. Patient had marked improvement in his symptoms and thus was switched over to nasal cannula. Patient does use home oxygenation at 2 L. Patient was weaned down to 2 L her and was saturating between 90-94%. For his CHF exacerbation cardiology was consulted who recommended the patient be stopped on Lasix added spironolactone. Amiodarone and increase the Coreg dosage. Patient again had marked improvement from that. Patient was scheduled with cardiology to have CABG done about 3 months ago but due to having a right situation at home he was not able to follow up with a cardiothoracic surgeon. An attempt was made to talk to the cardiac surgeon while he was here in the hospital for possible transfer however they recommend the patient can follow up with them outpatient and will be arranged for a CABG in next week or so. Patient once able to ambulate tolerating his diet and was saturating well and was able to breathe better was discharged home under stable condition. Patient was asked to follow up with cardiology in about 1-2 days for outpatient setup for his CABG. Patient demonstrated understanding and thus was discharged home under stable condition Vital Signs/Physical Exam: Temp Pulse Resp BP Pulse Ox 97.0 F 66 18 170/71 H 98 10/02/18 08:00 10/02/18 08:00 10/02/18 08:00 10/02/18 08:00 10/02/18 08:00 General: Alert, In no apparent distress HEENT: Atraumatic, PERRLA, EOMI Neck: Supple, JVD not distended Respiratory: Clear to auscultation bilaterally, Normal air movement Cardiovascular: Regular rate/rhythm, Normal S1 S2 Gastrointestinal: Normal bowel sounds, No tenderness Musculoskeletal: No tenderness Integumentary: No rashes Neurological: Normal speech, Normal tone, Normal affect Lymphatics: No axilla or inguinal lymphadenopathy Laboratory Data at Discharge: WBC 8.7 K/uL (4.3-10.9) D 10/02/18 04:42 Hgb 13.9 g/dL (13.6-17.9) 10/02/18 04:42 Hct 39.7 % (39.6-49.0) 10/02/18 04:42 Plt Count 149 K/uL (152-406) L 10/02/18 04:42 PT 12.0 SECONDS (9.5-12.5) 09/28/18 18:50 INR 1.02 09/28/18 18:50 Sodium 141 mmol/L (136-145) 10/02/18 04:42 Potassium 3.8 mmol/L (3.5-5.1) 10/02/18 04:42 BUN 30 mg/dL (7-18) H 10/02/18 04:42 Creatinine 1.10 mg/dL (0.55-1.3) 10/02/18 04:42 Glucose 158 mg/dL (74-106) H 10/02/18 04:42 Phosphorus 2.7 mg/dL (2.5-4.9) 09/29/18 05:19 Magnesium 2.3 mg/dL (1.8-2.4) 09/29/18 05:19 Total Bilirubin 0.5 mg/dL (0.2-1.0) 09/29/18 05:19 AST 32 U/L (15-37) 09/29/18 05:19 ALT 90 U/L (12-78) H 09/29/18 05:19 Alkaline Phosphatase 105 U/L (45-117) 09/29/18 05:19 Troponin I 0.06 ng/mL (0.0-0.045) H 09/30/18 09:27 Lipase 373 U/L (73-393) 09/28/18 18:50 Home Medications: Atorvastatin Calcium [Lipitor] 80 mg PO DAILY 09/28/18 Carvedilol [Coreg] 12.5 mg PO BID 09/28/18 Furosemide [Lasix] 80 mg PO BID 09/28/18 Budesonide/Formoterol Fumarate [Symbicort 160-4.5 Mcg Inhaler] 1 puff IH DAILY # 1 hfa.aer.ad 09/30/18 Carvedilol [Coreg*] 25 mg PO BID #60 tab 10/02/18 Spironolactone [Aldactone*] 25 mg PO BID #60 tab 10/02/18 predniSONE [Prednisone*] 20 mg PO BID #15 tab 10/02/18 New Medications: Budesonide/Formoterol Fumarate [Symbicort 160-4.5 Mcg Inhaler] 1 puff IH DAILY # 1 hfa.aer.ad Carvedilol [Coreg*] 25 mg PO BID #60 tab predniSONE [Prednisone*] 20 mg PO BID #15 tab Spironolactone [Aldactone*] 25 mg PO BID #60 tab Patient Discharge Instructions: Please f.u with PCP and Cardiology in 1 to 2 week post discharge. new medication. Symbicort BID daily. Prednisone 20mg BID. Spironolactone. STOP taking. Amiodrone. Change. Coreg to 25mg BID daily Diet: Regular Activity: Ad roseann Followup: Geo Cornelius MD [ACTIVE - CAN ADMIT] - 1 Week (Call for appointment.)
[2018-10-02 14:58] VITALS: BP 188/79
== END 2018-10-02 14:35 | disposition home or self-care (01) | DRG 291 ==
LOC: ER 18:56 → ERHOLD 19:37 → 2ND 22:06
PROVIDERS: ADMIT Hospitalist; ATTEND Family Medicine
DX: I13.0 Hypertensive heart and chronic kidney disease with heart failure and stage 1 through stage 4 chronic kidney disease, or unspecified chronic kidney disease (principal); J96.01 Acute respiratory failure with hypoxia; I50.23 Acute on chronic systolic (congestive) heart failure; J44.1 Chronic obstructive pulmonary disease with (acute) exacerbation; N17.9 Acute kidney failure, unspecified; E87.2 Acidosis; I48.2 Chronic atrial fibrillation; K21.9 Gastro-esophageal reflux disease without esophagitis; E78.5 Hyperlipidemia, unspecified; E66.09 Other obesity due to excess calories; Z68.32 Body mass index [BMI] 32.0-32.9, adult; Z87.891 Personal history of nicotine dependence; E11.22 Type 2 diabetes mellitus with diabetic chronic kidney disease; N18.2 Chronic kidney disease, stage 2 (mild); Z79.4 Long term (current) use of insulin; I25.119 Atherosclerotic heart disease of native coronary artery with unspecified angina pectoris
CPT/HCPCS: 36415; 71045; 80048; 80053; 80076; 81003; 81015; 82550; 82805; 82962; 83605; 83690; 83735; 83880; 84100; 84145; 84484; 85025; 85610; 87040; 87086; 87088; 93005; 94640; 94660; 94760; 96361; 96365; 96375; 99285; J0692; J1650; J1940; J2930; J7030; J7512; J7605; P9047

== ENCOUNTER 2019-03-23 05:26 | Inpatient (IN) | payer OTHER ==
--- OUTSIDE RECORDS SUMMARY | 2019-03-23 05:28 | XMS REPORT | Clinical Summary ---
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 Hypertension COPD (chronic obstructive pulmonary disease) Peripheral vascular disease Atrial fibrillation Hyperlipidemia Cardiomyopathy CHF (congestive heart failure) Encounters Date Type Specialty Care Team Description 06/29/2018 Anesthesia Event Chuck Stone MD 06/23/2018 Hospital Encounter Jeremy, Chronic atrial Joaquín Aleksander, fibrillation (HCC) 06/23/2018 Office Visit Cardiology Jeremy, Essential hypertension; Joaquín Townsendlow, Chronic obstructive pulmonary disease, unspecified COPD type (HCC); Coronary artery disease of [place] artery of [place] heart with stable angina pectoris (HCC); Peripheral vascular disease (HCC); Chronic atrial fibrillation (HCC); Hyperlipidemia, unspecified hyperlipidemia type; Cardiomyopathy, unspecified type (HCC); Chronic systolic congestive heart failure (HCC) 06/23/2018 Orders Only General Internal Medicine after 03/22/2018 Family History Medical History Relation Name Comments [...] 06/23/2018 12:05 PM CDT Plan of Treatment Not on file Procedures Procedure Name Priority Date/Time Associated Comments [...] 494 ms QTC Calculation(Bazett) 533 ms P Taylor -87 degrees R Taylor -70 degrees T Taylor 78 degrees Atrial flutter with variable A-V block Left anterior fascicular block Cannot rule out Inferior infarct (masked by fascicular block?) , age undetermined Abnormal ECG No previous ECGs available ECG 12-LEAD Routine 06/23/2018 12:22 PM CDT after 03/22/2018 Results TRANSFUSION SERVICE REPORT - SCAN (06/24/2018 6:02 PM CDT) Narrative Performed At XR chest 1 view portable / bedside (06/23/2018 1:00 PM CDT) Specimen Narrative Performed At FINAL REPORT [facility] EXAM: Frontal chest radiograph HISTORY PROVIDED: Pre-op for ACB COMPARISON: None available IMPRESSION: There is a small right pleural effusion with adjacent atelectasis/consolidation. The lungs are otherwise clear. No discernible pneumothorax. The cardiac silhouette is enlarged. No suspicious osseous lesion. Degenerative changes of the spine are present. Signed: Dixon Rico MD Report Verified Date/Time:06/23/2018 13:40:36 Reading Location: [facility] Reading Room Procedure Note Interface, External Ris [...] Report Verified Date/Time: 06/23/2018 13:40:36 Reading Location: [facility] Mammo Reading Room Performing Organization Address City/[facility]/Zipcode Phone Number RIS Type and screen, automated (06/23/2018 12:42 PM CDT) ABO/RH AUTOMATED (BEAKER) B POSITIVE [facility] Ab Scrn NEGATIVE [facility] Specimen Blood Performing Organization Address City/[facility]/Zipcode Phone Number [facility] [address] [place] [address] [phone] CBC with platelet count + automated diff (06/23/2018 12:42 PM CDT) WBC 7.4 3.5 - 10.5 K/L [facility] RBC 4.91 4.63 - 6.08 M/L [facility] Hemoglobin 14.5 13.7 - 17.5 GM/DL [facility] Hematocrit 43.5 40.1 - 51.0 % [facility] MCV 88.6 79.0 - 92.2 fL [facility] MCH 29.5 25.7 - 32.2 pg [facility] MCHC 33.3 32.3 - 36.5 GM/DL [facility] RDW 14.6 (H) 11.6 - 14.4 % [facility] Platelets 152 150 - 450 K/CU MM [facility] MPV 13.1 (H) 9.4 - 12.4 fL [facility] nRBC 0 0 - 0 /100 WBC [facility] % Neutros 71 % [facility] % Lymphs 20 % [facility] % Monos 8 % [facility] % Eos 0 % [facility] % Baso 0 % [facility] # Neutros 5.23 1.78 - 5.38 K/L [facility] # Lymphs 1.46 1.32 - 3.57 K/L [facility] # Monos 0.61 0.30 - 0.82 K/L [facility] # Eos 0.03 (L) 0.04 - 0.54 K/L [facility] # Baso 0.02 0.01 - 0.08 K/L [facility] Immature Granulocytes-Relative 0 0 - 1 % [facility] Specimen Blood Performing Organization Address City/State/Zipcode Phone Number [facility] [address] [place] [address] [phone] CENTER Urinalysis w/ Microscopic (06/23/2018 12:42 PM CDT) Color, UA Light Yellow [facility] Clarity, UA Clear [facility] Specific [place], UA 1.009 1.001 - 1.035 [facility] pH, UA 7.0 5.0 - 8.0 [facility] Protein, UA Negative Negative [facility] Glucose, UA Negative Negative [facility] Ketones, UA Negative Negative [facility] Bilirubin, UA Negative Negative [facility] Blood, UA Negative Negative [facility] Nitrite, UA Negative Negative [facility] Leukocytes, UA Negative Negative [facility] Urobilinogen, UA 0.2 0.2 - 1.0 mg/dL [facility] RBC, UA <1 /HPF [facility] WBC, UA 1 /HPF [facility] Bacteria, UA Rare [facility] Squam Epithel, UA 1 /HPF [facility] Hyaline Casts, UA 6 /LPF [facility] Specimen Source Urine, Voided [facility] Specimen Urine Performing Organization Address City/[facility]/Zipcode Phone Number [address] [address] [place] aPTT (06/23/2018 12:42 PM CDT) PTT 36.8 (H) 22.5 - 36.0 seconds [facility] Specimen Blood Performing Organization Address City/[facility]/Zipcode Phone Number [address] [address] [place] Prothrombin time/INR (06/23/2018 12:42 PM CDT) Protime 19.7 (H) 11.7 - 14.7 seconds [facility] INR 1.7 <=5.9 [facility] Specimen Blood Narrative Performed At [facility] RECOMMENDED COUMADIN/WARFARIN INR THERAPY RANGES STANDARD DOSE: 2.0 - 3.0 Includes: PROPHYLAXIS for venous thrombosis, systemic embolization; TREATMENT for venous thrombosis and/or pulmonary embolus. HIGH RISK: Target INR is 2.5-3.5 for patients with mechanical heart valves. Performing Organization Address City/State/Zipcode Phone Number [address] [address] CENTER TSH (06/23/2018 12:42 PM CDT) TSH 1.11 0.35 - 4.94 uIU/mL [facility] Specimen Blood Performing Organization Address [facility] Phone Number [address] [address] CENTER Magnesium (06/23/2018 12:42 PM CDT) Magnesium 2.6 1.6 - 2.6 mg/dL [facility] Specimen Blood Performing Organization Address City/[facility] Phone Number [address] [address] [phone] CENTER Hemoglobin A1c (06/23/2018 12:42 PM CDT) Hemoglobin A1C 6.3 (H) 4.3 - 6.1 % [facility] Specimen Blood Performing Organization Address [facility] Phone Number [address] [address] CENTER Lipid panel (06/23/2018 12:42 PM CDT) Triglycerides 219 mg/dL [facility] Cholesterol 203 mg/dL [facility] HDL 38 mg/dL [facility] LDL Calculated 121 mg/dL [facility] Specimen Blood Narrative Performed At [facility] Triglyceride Reference Range: Low Risk <150 [id number] High Risk 200-499 Very High Risk>=500 Cholesterol Reference Range: Low Risk <200 [id number] High Risk>240 HDL Cholesterol Reference Range: Low Risk >=60 High Risk <40 LDL Cholesterol Reference Range: Optimal<100 Near [id number] Very High >=190 Performing Organization Address City/[facility] Cent[facility]ode Phone Number [place] [phone] [place] [address] CENTER Comprehensive metabolic panel (06/23/2018 12:42 PM CDT) [facility], Total 7.2 6.0 - 8.3 gm/dL [facility] Albumin 4.3 3.5 - 5.0 g/dL [facility] Alkaline Phosphatase 104 40 - 150 U/L [facility] Total Bilirubin 1.2 0.2 - 1.2 mg/dL [facility] Sodium 141 136 - 145 meq/L [facility] Potassium 3.7 3.5 - 5.1 meq/L [facility] Chloride 103 98 - 107 meq/L [facility] CO2 29 22 - 29 meq/L [facility] BUN 31 (H) 7 - 21 mg/dL [facility] Creatinine 1.06 0.57 - 1.25 mg/dL [facility] Glucose 124 (H) 70 - 105 mg/dL [facility] Calcium 9.7 8.4 - 10.2 mg/dL [facility] AST 31 5 - 34 U/L [facility] ALT 52 6 - 55 U/L [facility] EGFR 69Comment: ESTIMATED GFR mL/min/1.73 sq m [facility] IS NOT ACCURATE [facility] CREATININE CLEARANCE IN PREDICTING GLOMERULAR FILTRATION RATE. ESTIMATED GFR IS NOT APPLICABLE FOR DIALYSIS PATIENTS. Specimen Blood Performing Organization Address City/[facility] Cent[facility]ode Phone Number [place] [phone] [place] [address] [phone] CENTER Electrocardiogram, 12-lead (06/23/2018 12:22 PM CDT) Specimen Narrative Performed At Ventricular Rate 70 BPM GE MUSE Atrial Rate 227 BPM QRS Duration 122 ms Q-T Interval 494 ms QTC Calculation(Bazett) 533 ms P Taylor -87 degrees R Taylor -70 degrees T Taylor 78 degrees Atrial flutter with variable A-V [...] 494 ms QTC Calculation(Bazett) 533 ms P Taylor -87 degrees R Taylor -70 degrees T Taylor 78 degrees Atrial flutter with variable A-V block Left anterior fascicular block Cannot rule out Inferior infarct (masked by fascicular block?) , age undetermined Abnormal ECG No previous ECGs available Confirmed by MD Tidwell Roberto ([id number]) on 06/24/2018 10:45:48 AM Performing Organization Address City/State/Zipcode Phone Number [facility]A SINGH after 03/22/2018 Insurance Payer Benefit Plan / Group Subscriber ID Type Phone Address MEDICARE MEDICARE A B xxxxxxxxx[place] [address] Advance Directives For more information, please contact:[address] [phone] Code Status Date Activated Date Inactivated Comments Full Code 06/23/2018 12:29 PM 06/24/2018 4:32 AM This code status was determined by: Patient
--- OUTSIDE RECORDS SUMMARY | 2019-03-23 05:28 | XMS REPORT ---
:1945 [facility] Address [address] [place] [address] Care Team Providers Name Role Phone JOSE [...] Reference Range Comments HEMOGLOBIN A1C (BEAKER) (test ulfo=517) 6.3 % 4.3-6.1 RAD, CHEST, 1 VIEW, NON [id number] 13:40:00Reason for exam:->Preop for ACBShould this be performed at the bedside?->YesFINAL REPORT EXAM: Frontal chest radiograph HISTORY PROVIDED: Pre-op for ACB COMPARISON: None available IMPRESSION:There is a small right pleural effusion with adjacent atelectasis/consolidation. The lungs are otherwise clear. No discernible pneumothorax. The cardiac silhouette is enlarged. No suspicious osseous lesion. Degenerative changes of the spine are present. Signed: Dixon Vaughn [facility] Verified Date/Time: 06/23/2018 13:40:36 Reading Location: [facility] Mammo Reading Room URINALYSIS W/ [id number] 13:38:00 Test Item Value Reference Range Comments COLOR (BEAKER) (test qqcz=637) Light Yellow CLARITY (BEAKER) (test scxv=432) Clear SPECIFIC GRAVITY UA (BEAKER) (test asbb=283) 1.009 1.001-1.035 PH UA (BEAKER) (test qfxu=322) 7.0 5.0-8.0 PROTEIN UA (BEAKER) (test emro=549) Negative Negative GLUCOSE UA (BEAKER) (test ocrq=588) Negative Negative KETONES UA (BEAKER) (test uexw=074) Negative Negative BILIRUBIN UA (BEAKER) (test qffd=532) Negative Negative BLOOD UA (BEAKER) (test mdhr=316) Negative Negative NITRITE UA (BEAKER) (test vgmt=281) Negative Negative LEUKOCYTE ESTERASE UA (BEAKER) (test lsur=109) Negative Negative UROBILINOGEN UA (BEAKER) (test hgoh=983) 0.2 mg/dL 0.2-1.0 RBC UA (BEAKER) (test uius=123) < /HPF WBC UA (BEAKER) (test iwhy=942) 1 /HPF BACTERIA (BEAKER) (test ybrb=185) Rare SQUAMOUS EPITHELIAL (BEAKER) (test ejxo=983) 1 /HPF HYALINE CASTS (BEAKER) (test amxm=658) 6 /LPF SOURCE(BEAKER) (test orkd=5744) Urine, Voided [id number] 13:32:00 Test Item Value Reference Range Comments THYROID STIMULATING HORMONE (BEAKER) (test 1.11 uIU/mL 0.35-4.94 cxqk=864) [id number] 13:11:00 Test Item Value Reference Range Comments MAGNESIUM (BEAKER) (test ecfi=375) 2.6 mg/dL 1.6-2.6 COMPREHENSIVE METABOLIC [id number] 13:11:00 Test Item Value Reference Range Comments TOTAL PROTEIN (BEAKER) 7.2 gm/dL 6.0-8.3 (test llhv=621) ALBUMIN (BEAKER) (test 4.3 g/dL 3.5-5.0 gcks=7457) ALKALINE PHOSPHATASE 104 U/L 40-150 (BEAKER) (test jkro=400) BILIRUBIN TOTAL (BEAKER) 1.2 mg/dL 0.2-1.2 (test ljtu=428) SODIUM (BEAKER) (test 141 meq/L 136-145 ofwp=478) POTASSIUM (BEAKER) (test 3.7 meq/L 3.5-5.1 prds=453) CHLORIDE (BEAKER) (test 103 meq/L 98-107 nbdq=735) CO2 (BEAKER) (test 29 meq/L 22-29 macv=808) BLOOD UREA NITROGEN 31 mg/dL 7-21 (BEAKER) (test iznq=964) CREATININE (BEAKER) (test 1.06 mg/dL 0.57-1.25 uxft=141) GLUCOSE RANDOM (BEAKER) 124 mg/dL 70-105 (test lxgg=234) CALCIUM (BEAKER) (test 9.7 mg/dL 8.4-10.2 hhjn=237) AST (SGOT) (BEAKER) (test 31 U/L 5-34 ojti=183) ALT (SGPT) (BEAKER) (test 52 U/L 6-55 txqa=829) EGFR (BEAKER) (test 69 mL/min/1.73 sq m ESTIMATED GFR IS NOT mmgd=0944) ACCURATE CREATININE CLEARANCE IN PREDICTING GLOMERULAR FILTRATION RATE. ESTIMATED GFR IS NOT APPLICABLE FOR DIALYSIS PATIENTS. LIPID [id number] 13:11:00 Test Item Value Reference Range Comments TRIGLYCERIDES (BEAKER) (test koua=823) 219 mg/dL CHOLESTEROL (BEAKER) (test evpe=589) 203 mg/dL HDL CHOLESTEROL (BEAKER) (test wjdj=936) 38 mg/dL LDL CHOLESTEROL CALCULATED (BEAKER) (test 121 mg/dL ubip=267) Triglyceride Reference Range: Low Risk <150 Borderline 150- 199 High Risk 200-499 Very High Risk >=500Cholesterol Reference Range: Low Risk <200 Borderline 200-239 High Risk > 240HDL Cholesterol Reference Range: Low Risk >=60 High Risk <40LDL Cholesterol Reference Range: Optimal <100 Near Optimal 100-129 Borderline 130-159 High 160-189 Very High >=[id number] 13:06:00 Test Item Value Reference Range Comments PARTIAL THROMBOPLASTIN TIME (BEAKER) (test 36.8 seconds 22.5-36.0 pieq=853) PROTHROMBIN TIME/[id number] 13:05:00 Test Item Value Reference Range Comments PROTIME (BEAKER) (test dpad=312) 19.7 seconds 11.7-14.7 INR (BEAKER) (test xscf=418) 1.7 <=5.9 RECOMMENDED COUMADIN/WARFARIN INR THERAPY RANGESSTANDARD DOSE: 2.0 - 3.0 Includes: PROPHYLAXIS forvenous thrombosis, systemic embolization; TREATMENT for venous thrombosis and/or pulmonary embolus.HIGH RISK: Target INR is 2.5-3.5 for patients with mechanical heart valves.CBC W/PLT COUNT & AUTO [id number] 12:53:00 Test Item Value Reference Range Comments WHITE BLOOD CELL COUNT (BEAKER) (test vcid=523) 7.4 K/ L 3.5-10.5 RED BLOOD CELL COUNT (BEAKER) (test ajni=653) 4.91 M/ L 4.63-6.08 HEMOGLOBIN (BEAKER) (test vzfl=332) 14.5 GM/DL 13.7-17.5 HEMATOCRIT (BEAKER) (test xkwl=331) 43.5 % 40.1-51.0 MEAN CORPUSCULAR VOLUME (BEAKER) (test rzai=518) 88.6 fL 79.0-92.2 MEAN CORPUSCULAR HEMOGLOBIN (BEAKER) (test 29.5 pg 25.7-32.2 slui=168) MEAN CORPUSCULAR HEMOGLOBIN CONC (BEAKER) (test 33.3 GM/DL 32.3-36.5 doet=645) RED CELL DISTRIBUTION WIDTH (BEAKER) (test 14.6 % 11.6-14.4 unpc=185) PLATELET COUNT (BEAKER) (test vyjy=064) 152 K/CU MM 150-450 MEAN PLATELET VOLUME (BEAKER) (test ykla=608) 13.1 fL 9.4-12.4 NUCLEATED RED BLOOD CELLS (BEAKER) (test 0 /100 WBC 0-0 nrdb=799) NEUTROPHILS RELATIVE PERCENT (BEAKER) (test 71 % blms=407) LYMPHOCYTES RELATIVE PERCENT (BEAKER) (test 20 % xlsu=154) MONOCYTES RELATIVE PERCENT (BEAKER) (test 8 % kkuk=472) EOSINOPHILS RELATIVE PERCENT (BEAKER) (test 0 % fdne=104) BASOPHILS RELATIVE PERCENT (BEAKER) (test 0 % wnpq=786) NEUTROPHILS ABSOLUTE COUNT (BEAKER) (test 5.23 K/ L 1.78-5.38 nsoe=440) LYMPHOCYTES ABSOLUTE COUNT (BEAKER) (test 1.46 K/ L 1.32-3.57 kmvn=023) MONOCYTES ABSOLUTE COUNT (BEAKER) (test 0.61 K/ L 0.30-0.82 fbin=999) EOSINOPHILS ABSOLUTE COUNT (BEAKER) (test 0.03 K/ L 0.04-0.54 qxmb=101) BASOPHILS ABSOLUTE COUNT (BEAKER) (test 0.02 K/ L 0.01-0.08 epmk=231) IMMATURE GRANULOCYTES-RELATIVE PERCENT (BEAKER) 0 % 0-1 (test dsni=2418)
[2019-03-23] MEDS ORDERED: FUROSEMIDE 40 MG/4 ML VIAL ONE (05:45)
--- NOTE | 2019-03-23 05:51 | ER ---
Nurse's Notes [facility] Name: Mumtaz Gonzales Age: 73 yrs Sex: Male : 1945 Arrival Date: 03/23/2019 Time: 05:30 Bed 3 Private MD: Diagnosis: Acute respiratory failure;Acute systolic (congestive) heart failure;Non-ST elevation (NSTEMI) myocardial infarction;Unspecified kidney failure Presentation: 03/23 05:32 Presenting complaint: EMS states: Called for patient with shortness of breath, lp1 persistent for the last 9 months; Hx of COPD, CHF; O2 at 90% on RA, respirations labored, diaphoretic on arrival of EMS. Transition of care: patient was not received from another setting of care. Onset of symptoms was March 23, 2019. Risk Assessment: Do you want to hurt yourself or someone else? Patient reports no desire to harm self or others. Care prior to arrival: CPAP in place on arrival to ED Medication(s) given: Albuterol Neb x 1, Atrovent Neb x 1. 05:32 Method Of Arrival: EMS: [facility] lp1 05:32 Acuity: SHERLY 1 lp1 05:36 Initial Sepsis Screen: Does the patient meet any 2 criteria? RR > 20 per min. HR > 90 lp1 bpm. Yes Does the patient have a suspected source of infection? Yes: Productive cough/pneumonia If YES to both, name of provider notified: Mack Orozco MD Historical: - Allergies: 05:39 NKDA; lp1 - Home Meds: 05:39 amiodarone 200 mg Oral tab 1 tab 2 times per day [Active]; atorvastatin 80 mg Oral tab lp1 1 tab once daily [Active]; carvedilol 25 mg Oral tab daily [Active]; Lasix 80 mg Oral tab 1 tab 2 times per day [Active]; - PMHx: 05:39 CHF; COPD; Hyperlipidemia; Myocardial infarction; lp1 - PSHx: 05:39 Unable to obtain; lp1 - Immunization history:: Adult Immunizations unknown. - Ebola Screening: : No symptoms or risks identified at this time. - Social history:: Smoking status: unknown. Screenin:39 Abuse screen: Denies threats or abuse. Denies injuries from another. Nutritional lp1 screening: No deficits noted. Tuberculosis screening: No symptoms or risk factors identified. Fall Risk Total Parker Fall Scale indicates High Risk Score (45 or more points). Fall prevention measures have been instituted. Side Rails Up X 2 Placed Close to Nursing Station Frequent Obs/Assessments Occuring As available patient and family educated on Fall Prevention Program and Strategies. Assessment: 05:35 General: Appears in no apparent distress. uncomfortable, Behavior is cooperative, aa1 appropriate for age, quiet. Pain: Complains of pain in chest. Neuro: Level of Consciousness is awake, alert, obeys commands, Oriented to person, place, time, situation, Moves all extremities. Cardiovascular: Reports chest pain, shortness of breath, Heart tones S1 S2 present Rhythm is irregular. Respiratory: Reports shortness of breath at rest Airway is patent Respiratory effort is labored, Breath sounds with rhonchi bilaterally. the patient has severe shortness of breath. GI: Abdomen is round. : No signs and/or symptoms were reported regarding the genitourinary system. EENT: No signs and/or symptoms were reported regarding the EENT system. Derm: Skin is intact, is healthy with good turgor, Skin is diaphoretic, Skin is pale, Skin temperature is cool. Musculoskeletal: Circulation, motion, and sensation intact. Capillary refill < 3 seconds. 06:02 Reassessment: RT at bedside for ABG. aa1 07:10 Reassessment: Patient appears in no apparent distress at this time. Patient and/or ph family updated on plan of care and expected duration. Pain level reassessed. Patient is alert, oriented x 3, equal unlabored respirations, skin warm/dry/pink. Pt resting comfortably, bi-pap in place, VSS, awaiting room assignment. 07:55 Reassessment: Patient appears in no apparent distress at this time. No changes from previously documented assessment. Dr Lux at bedside, verbal orders received, see DEC. 09:18 Reassessment: Pt taken to ICU by RN and technology adoption manager, placed on MS for transport, tolerated ph well handed off to TARIK Carlos. Vital Signs: 05:35 BP 161 / 89; Pulse 128; Resp 30; Temp 97.8(A); Pulse Ox 100% on 40% BiPAP; Weight lp1 108.86 kg; 06:20 BP 136 / 83; Pulse 119; Resp 24; Pulse Ox 95% on BiPAP; aa1 06:46 BP 129 / 78; Pulse 108; Resp 22; Pulse Ox 97% on 30% BiPAP; lp1 07:11 BP 109 / 78; Pulse 98; Resp 20; Pulse Ox 95% on 30% BiPAP; ph 08:06 BP 152 / 69; Pulse 105; Resp 20; Pulse Ox 96% on 30% BiPAP; ph 05:35 BiPAP settings: 16/8, Rate of 12, 40% O2 lp1 ED Course: 05:29 Mack Orozco MD is Attending Physician. gs 05:30 Patient arrived in ED. am2 05:30 Inserted saline lock: 20 gauge in right EJ, using aseptic technique. Blood collected. lp1 By Dr. Orozco. 05:34 Mack Orozco MD is Attending Physician. gs 05:35 Triage completed. lp1 05:37 Arm band placed on left wrist. lp1 05:39 Montelongo cath inserted, using sterile technique, 16 Fr., by me, balloon inflated, to aa1 gravity drainage, returned evelyn urine. Patient tolerated well. 05:40 Patient has correct armband on for positive identification. Placed in gown. Bed in low lp1 position. Call light in reach. Side rails up X2. pvc monitor on. Pulse ox on. NIBP on. 05:45 First set of blood cultures drawn by me. lp1 05:49 Siena Deutsch MD is Hospitalizing Provider. gs 05:50 Inserted saline lock: 22 gauge in right hand, using aseptic technique. Blood collected. ea 06:17 X-ray completed. Portable x-ray completed in exam room. Patient tolerated procedure kw well. 06:17 XRAY Chest (1 view) In Process Unspecified. EDMS 06:29 Notified ED physician of a critical lab result(s). Troponin 1.64. lp1 07:10 May Maldonado, TARIK is Primary Nurse. ph 09:17 No provider procedures requiring assistance completed. Patient admitted, IV remains in ph place. Administered Medications: 05:38 Drug: Lasix 80 mg {Note: right EJ.} Route: IVP; Site: Other; ea 09:16 Follow up: Urine output 1100 ml; Response: No adverse reaction ph 05:47 Drug: Albuterol 2.5 mg Route: Inhalation; aa1 09:17 Follow up: Response: No adverse reaction ph 05:47 Drug: AtroVENT Aerosol 0.5 mg Route: Inhalation; aa1 09:16 Follow up: Response: No adverse reaction ph 06:19 Drug: fentaNYL (PF) 25 mcg Route: IVP; Site: right jugular; aa1 07:05 Follow up: Response: No adverse reaction; Pain is decreased ph 07:48 CANCELLED (Duplicate Order): Lovenox 1 mg/kg Sub-Q once ph 07:55 CANCELLED (Duplicate Order): Lovenox 1 mg/kg Sub-Q once ph 07:55 Drug: Lovenox 1 mg/kg Route: Sub-Q; Site: right lower abdomen; ph 09:14 Follow up: Response: No adverse reaction ph 08:04 CANCELLED (Duplicate Order): Lovenox 60 mg Sub-Q once ph 09:15 Not Given (Other Intervention Used): Aspirin 162 mg PO once ph 09:15 Not Given (Other Intervention Used): Pepcid 20 mg IVP once ph Point of Care Testing: Blood Glucose: 06:02 Blood Glucose: 204 mg/dL; aa1 Ranges: Output: 08:06 Urine: 800ml (Montelongo); Total: 800ml. ph 09:16 Urine: 1100ml; Total: 1900ml. ph Outcome: 05:49 Decision to Hospitalize by Provider. gs 08:33 Admitted to ICU Report called to TARIK Carlos- report given by Ryan Barakat RN ph 09:17 critical ph 09:19 Patient left the ED. ph Signatures: Dispatcher [employer] EDMS Shannon Ferrara RN RN aa1 Ermelinda Copeland Laura, RN RN lp1 May Maldonado RN RN ph Bernarda Pinto am2 Melly Serrano RN RN ea Starr, Gregory, MD MD Corrections: (The following items were deleted from the chart) 05:37 05:36 Initial Sepsis Screen: Does the patient meet any 2 criteria? RR > 20 per min. HR lp1 > 90 bpm. Yes Does the patient have a suspected source of infection? Yes: Productive cough/pneumonia lp1 05:41 05:35 BP 161 / 89; Pulse 128bpm; Resp 30bpm; Pulse Ox 100% 02 40% BiPAP; Temp 97.8F lp1 Axillary; 108.86 kg; lp1 06:59 06:46 BP 129 / 78; Pulse 180bpm; Resp 22bpm; Pulse Ox 97% 02 30% BiPAP; lp1 lp1
--- NOTE | 2019-03-23 05:51 | EDPHYS ---
Physician Documentation [facility] Name: Mumtaz Gonzales Age: 73 yrs Sex: Male : 1945 Arrival Date: 03/23/2019 Time: 05:30 Bed 3 Private MD: ED Physician Mack Orozco HPI: 03/23 05:34 This 73 yrs old Male presents to ER via Unassigned with complaints of gs Shortness Of Breath. 05:34 The patient has shortness of breath at rest. Onset: The symptoms/episode began/occurred gs acutely, this morning. Duration: The symptoms are continuous, but are steadily getting better. The patient's shortness of breath has no apparent modifying factors. Associated signs and symptoms: Pertinent negatives: fever. Severity of symptoms: At their worst the symptoms were incapacitating in the emergency department the symptoms have improved moderately. The patient has experienced similar episodes in the past, a few times. Historical: - Allergies: 05:39 NKDA; lp1 - Home Meds: 05:39 amiodarone 200 mg Oral tab 1 tab 2 times per day [Active]; atorvastatin 80 mg Oral tab lp1 1 tab once daily [Active]; carvedilol 25 mg Oral tab daily [Active]; Lasix 80 mg Oral tab 1 tab 2 times per day [Active]; - PMHx: 05:39 CHF; COPD; Hyperlipidemia; Myocardial infarction; lp1 - PSHx: 05:39 Unable to obtain; lp1 - Immunization history:: Adult Immunizations unknown. - Ebola Screening: : No symptoms or risks identified at this time. - Social history:: Smoking status: unknown. ROS: 05:34 All other systems are negative. gs Exam: 05:34 Head/Face: Normocephalic, atraumatic. Eyes: Pupils equal round and reactive to light, gs extra-ocular motions intact. Lids and lashes normal. Conjunctiva and sclera are non-icteric and not injected. Cornea within normal limits. Periorbital areas with no swelling, redness, or edema. ENT: Nares patent. No nasal discharge, no septal abnormalities noted. Tympanic membranes are normal and external auditory canals are clear. Oropharynx with no redness, swelling, or masses, exudates, or evidence of obstruction, uvula midline. Mucous membranes moist. 05:34 Neck: Trachea midline, no thyromegaly or masses palpated, and no cervical lymphadenopathy. Supple, full range of motion without nuchal rigidity, or vertebral point tenderness. No Meningismus. Chest/axilla: Normal chest wall appearance and motion. Nontender with no deformity. No lesions are appreciated. 05:34 Abdomen/GI: Soft, non-tender, with normal bowel sounds. No distension or tympany. No guarding or rebound. No evidence of tenderness throughout. Back: No spinal tenderness. No costovertebral tenderness. Full range of motion. MS/ Extremity: Pulses equal, no cyanosis. Neurovascular intact. Full, normal range of motion. Neuro: Awake and alert, GCS 15, oriented to person, place, time, and situation. Cranial nerves II-XII grossly intact. Motor strength 5/5 in all extremities. Sensory grossly intact. Cerebellar exam normal. Normal gait. 05:34 Constitutional: The patient appears alert, awake, in obvious distress, severely distressed. 05:34 Cardiovascular: Rate: tachycardic, Rhythm: regular, Pulses: no pulse deficits are appreciated, Edema: 2+ edema to level of left midcalf and right midcalf. 05:34 ECG was reviewed by the Attending Physician. 05:34 Respiratory: severe repiratory distress is noted, Respirations: Breath sounds: rhonchi, are scattered, wheezing: is scattered. 05:34 Skin: Appearance: Color: diaphoresis is noted. 05:50 Respiratory: Respirations: shallow respirations, that is moderate, tachypnea, that is gs severe. Vital Signs: 05:35 BP 161 / 89; Pulse 128; Resp 30; Temp 97.8(A); Pulse Ox 100% on 40% BiPAP; Weight lp1 108.86 kg; 06:20 BP 136 / 83; Pulse 119; Resp 24; Pulse Ox 95% on BiPAP; aa1 06:46 BP 129 / 78; Pulse 108; Resp 22; Pulse Ox 97% on 30% BiPAP; lp1 07:11 BP 109 / 78; Pulse 98; Resp 20; Pulse Ox 95% on 30% BiPAP; ph 08:06 BP 152 / 69; Pulse 105; Resp 20; Pulse Ox 96% on 30% BiPAP; ph 05:35 BiPAP settings: 16/8, Rate of 12, 40% O2 lp1 MDM: 05:29 Patient medically screened. gs 05:34 Patient medically screened. 05:34 Differential diagnosis: CHF exacerbation, Chronic Obstructive Pulmonary Disease gs Myocardial Infarction pneumonia. Data reviewed: vital signs, nurses notes, lab test result(s), EKG, radiologic studies. Counseling: I had a detailed discussion with the patient and/or guardian regarding: the historical points, exam findings, and any diagnostic results supporting the discharge/admit diagnosis. Response to treatment: the patient's symptoms have mildly improved after treatment, and as a result, I will admit patient. 03/23 05:33 Order name: Basic Metabolic Panel 03/23 05:33 Order name: CBC with Diff 03/23 05:33 Order name: LFT's; Complete Time: 07:46 03/23 05:33 Order name: Magnesium; Complete Time: 07:46 03/23 05:33 Order name: NT PRO-BNP; Complete Time: 07:46 03/23 05:33 Order name: PT-INR; Complete Time: 07:46 03/23 05:33 Order name: Troponin (emerg Dept Use Only); Complete Time: 07:46 03/23 05:33 Order name: XRAY Chest (1 view) 03/23 05:33 Order name: Blood Culture* 03/23 05:33 Order name: BIPAP 03/23 05:35 Order name: Basic Metabolic Panel; Complete Time: 07:46 EDMI 03/23 05:35 Order name: CBC with Automated Diff; Complete Time: 06:04 EDMI 03/23 05:56 Order name: ABG; Complete Time: 07:46 03/23 08:05 Order name: Glucose, Ancillary Testing EDMI 03/23 05:33 Order name: EKG; Complete Time: 05:35 03/23 05:33 Order name: Cardiac monitoring; Complete Time: 05:42 03/23 05:33 Order name: EKG - Nurse/Tech; Complete Time: 05:42 03/23 05:33 Order name: IV Saline Lock; Complete Time: 05:42 03/23 05:33 Order name: Labs collected and sent; Complete Time: 05:47 03/23 05:33 Order name: O2 Per Protocol; Complete Time: 05:42 03/23 05:33 Order name: O2 Sat Monitoring; Complete Time: 05:42 gs EC:34 Rate is 124 beats/min. Rhythm is regular with Unifocal PVCs. DC interval is normal. QRS gs interval is prolonged. QT interval is prolonged. Clinical impression: NSR w/ Non-specific ST/T Changes and Abnormal EKG without significant change. Interpreted by me. Administered Medications: 05:38 Drug: Lasix 80 mg {Note: right EJ.} Route: IVP; Site: Other; ea 09:16 Follow up: Urine output 1100 ml; Response: No adverse reaction ph 05:47 Drug: Albuterol 2.5 mg Route: Inhalation; aa1 09:17 Follow up: Response: No adverse reaction ph 05:47 Drug: AtroVENT Aerosol 0.5 mg Route: Inhalation; aa1 09:16 Follow up: Response: No adverse reaction ph 06:19 Drug: fentaNYL (PF) 25 mcg Route: IVP; Site: right jugular; aa1 07:05 Follow up: Response: No adverse reaction; Pain is decreased ph 07:48 CANCELLED (Duplicate Order): Lovenox 1 mg/kg Sub-Q once ph 07:55 CANCELLED (Duplicate Order): Lovenox 1 mg/kg Sub-Q once ph 07:55 Drug: Lovenox 1 mg/kg Route: Sub-Q; Site: right lower abdomen; ph 09:14 Follow up: Response: No adverse reaction ph 08:04 CANCELLED (Duplicate Order): Lovenox 60 mg Sub-Q once ph 09:15 Not Given (Other Intervention Used): Aspirin 162 mg PO once ph 09:15 Not Given (Other Intervention Used): Pepcid 20 mg IVP once ph Point of Care Testing: Blood Glucose: 06:02 Blood Glucose: 204 mg/dL; aa1 Ranges: Critical Glucose Levels:Adult <50 mg/dl or >400 mg/dl <40 mg/dl or >180 mg/dl Disposition: 05:34 Critical Care:. Disposition: 03/23/19 05:49 Hospitalization ordered by Siena Deutsch for Inpatient Admission. Preliminary diagnosis are Acute respiratory failure, Acute systolic (congestive) heart failure, Non-ST elevation (NSTEMI) myocardial infarction, Unspecified kidney failure. - Bed requested for Intensive Care Unit. - Status is Inpatient Admission. ph - Condition is Stable. - Problem is new. - Symptoms have improved. UTI on Admission? No Critical care time excluding procedures: 05:34 Critical care time: Bedside Care: 10 minutes, Consultation: 10 minutes, Family gs Intervention: 10 minutes. Total time: 30 minutes Signatures: Dispatcher [employer] EDMS Anisha Shaw Shannon Gaffney RN RN aa1 Gian Brandt MD MD cha Pena, Laura, RN RN lp1 May Maldonado RN RN Melly Serrano RN RN ea Starr, Gregory, MD MD gs Corrections: (The following items were deleted from the chart) 05:51 05:34 Respiratory: severe repiratory distress is noted, Respirations: normal, Breath gs sounds: rhonchi, are scattered, wheezing: is scattered, gs 07:48 07:48 Lovenox 1 mg/kg Sub-Q once ordered. ph ph 07:53 05:49 Hospitalization Ordered by Siena Deutsch MD for Inpatient Admission. Preliminary kelton diagnosis is Acute respiratory failure; Acute systolic (congestive) heart failure. Bed requested for Telemetry/MedSurg (Inpatient). Status is Inpatient Admission. Condition is Stable. Problem is new. Symptoms have improved. UTI on Admission? No. gs 07:55 07:55 Lovenox 1 mg/kg Sub-Q once ordered. ph ph 08:03 07:53 03/23/2019 05:49 Hospitalization Ordered by Siena Deutsch MD for Inpatient bd Admission. Preliminary diagnosis is Acute respiratory failure; Acute systolic (congestive) heart failure; Non-ST elevation (NSTEMI) myocardial infarction; Unspecified kidney failure. Bed requested for Telemetry/MedSurg (Inpatient). Status is Inpatient Admission. Condition is Stable. Problem is new. Symptoms have improved. UTI on Admission? No. kelton 08:04 07:48 Lovenox 60 mg Sub-Q once ordered. kelton ph 08:05 07:50 Bladder Scanner ordered. kelton ph 09:19 08:03 03/23/2019 05:49 Hospitalization Ordered by Siena Deutsch MD for Inpatient ph Admission. Preliminary diagnosis is Acute respiratory failure; Acute systolic (congestive) heart failure; Non-ST elevation (NSTEMI) myocardial infarction; Unspecified kidney failure. Bed requested for Intensive Care Unit. Status is Inpatient Admission. Condition is Stable. Problem is new. Symptoms have improved. UTI on Admission? No. bd
[2019-03-23 05:55] LABS: Absolute Lymphocytes (CBC) 1.8 K/uL (0.7-4.9); Absolute Monocytes 1.4 K/uL (0.1-1.3); Absolute Neutrophil 8.6 K/uL (1.8-8.0); Basophils % 0.4 % (0-1.3); Eosinophils % 0.1 % (0-4.4); Hematocrit 49.5 % (39.6-49.0); MPV 11.9 fL (7.6-11.3); Monocytes % 12.2 % (3.3-12.3); RBC Red Blood Cell Count 5.58 M/uL (4.33-5.43)
[2019-03-23 05:56] LABS: Protime INR 1.42
[2019-03-23] MEDS ORDERED: ALBUTEROL 2.5 MG/3 ML NEB SOL ONE (06:00)
[2019-03-23] MEDS ORDERED: IPRATROPIUM BROM 0.5MG/2.5ML ONE (06:01)
[2019-03-23 06:26] LABS: Albumin 3.4 g/dL (3.4-5.0); Bilirubin Direct 0.8 mg/dL (0-0.2); Bilirubin Total 1.6 mg/dL (0.2-1.0); Magnesium 3.1 mg/dL (1.8-2.4); Potassium 4.3 mmol/L (3.5-5.1); Protein, Total 7.2 g/dL (6.4-8.2)
[2019-03-23 06:26] LABS: Arterial Blood Carboxyhemoglob 0.9 % (0-1.5); Blood Gas Oxyhemoglobin 94.6 % (94-97); Blood O2 Saturation 96.1 % (92-98.5)
[2019-03-23 06:30] LABS: Troponin (Emerg Dept Use Only) 1.64 ng/mL (0.0-0.045)
[2019-03-23] MEDS ORDERED: FENTANYL CITR 100 MCG/2 ML ONE (06:32)
[2019-03-23] MEDS ORDERED: ENOXAPARIN 100 MG/ML SYR SQ ONE (08:08)
--- NOTE | 2019-03-23 08:27 | RAD REPORT ---
EXAM DESCRIPTION: RAD - Chest Single View - 03/23/2019 6:17 am CLINICAL HISTORY: DYSPNEA Chest pain. COMPARISON: Chest Single View dated 09/28/2018; Chest Single View dated 05/20/2018; Chest Single View dated 05/19/2018; Chest Single View dated 05/18/2018 FINDINGS: Portable technique limits examination quality. Mild pulmonary edema is seen. Moderate right pleural effusion is present. The heart is significantly enlarged. IMPRESSION: Mild to moderate CHF versus volume overload pattern.
[2019-03-23] MEDS ORDERED: ACETAMINOPHEN 500 MG TAB PO PRN (09:53)
[2019-03-23] MEDS ORDERED: D50W 25 GM/50 ML SYRINGE IV PRN (09:53)
[2019-03-23] MEDS ORDERED: GLUCAGON 1 MG/VIAL IM PRN (09:53)
[2019-03-23] MEDS ORDERED: FUROSEMIDE 40 MG/4 ML VIAL IV SCH (09:53)
[2019-03-23] MEDS: IPRATROPIUM BROM 0.5MG/2.5ML NEB SCH ×4 (10:55→20:00)
[2019-03-23] MEDS: ALBUTEROL 2.5 MG/3 ML NEB SOL NEB SCH ×4 (10:55→20:00)
[2019-03-23] MEDS: INSULIN -REGULAR HUMAN 50 UNIT/0.5 ML ML SQ SCH ×3 (11:30→21:05)
[2019-03-23] MEDS: ARFORMOTEROL TARTRATE 15 MCG/2 ML VIAL.NEB NEB SCH ×2 (12:05→20:00)
--- NOTE | 2019-03-23 12:06 | P.CNS ---
Date of Consult: 03/23/19 Reason for Consult: Respiratory distress Chief Complaint: Shortness of breath History of Present Illness: Patient is 73 years of age with a history of congestive heart failure he was scheduled to have a a coronary artery bypass grafting but was unable to make it for his appointment he has been becoming progressively more short of breath over the past 9 months became worse recently admitted to the hospital denies any cough sputum hemoptysis or chest pain denies any fever or chills. Denies any lower extremity edema as compliant with his medication Allergies No Known Drug Allergies Allergy (Mild, Verified 05/18/18 20:17) NKA Home Medications: Atorvastatin Calcium [Lipitor] 80 mg PO DAILY 09/28/18 Carvedilol [Coreg] 12.5 mg PO BID 09/28/18 Furosemide [Lasix] 80 mg PO BID 09/28/18 Budesonide/Formoterol Fumarate [Symbicort 160-4.5 Mcg Inhaler] 1 puff IH DAILY # 1 hfa.aer.ad 09/30/18 Carvedilol [Coreg*] 25 mg PO BID #60 tab 10/02/18 Spironolactone [Aldactone*] 25 mg PO BID #60 tab 10/02/18 predniSONE [Prednisone*] 20 mg PO BID #15 tab 10/02/18 - Past Medical/Surgical History Diabetic: No -: Congestive heart failure; ejection fraction of 35% -: COPD -: Hypertension -: Atrial fibrillation -: Cyst on the back,neck,chest -: Former tobacco use -: Morbid obesity Psychosocial/ Personal History: Patient lives by himself - Family History Father Medical History: Other (see notes) Notes: TB - Social History Smoking Status: Unknown if ever smoked Alcohol use: No CD- Drugs: No Caffeine use: Yes Review of Systems 10-point ROS is otherwise unremarkable General: Weakness Respiratory: Shortness of Breath Physical Examination Temp Pulse Resp BP Pulse Ox 98.4 F 93 H 21 H 131/78 100 03/23/19 09:06 03/23/19 12:00 03/23/19 12:00 03/23/19 12:00 03/23/19 12:00 General: Alert, Oriented x3, Mild distress Neck: Supple Respiratory: Clear to auscultation bilaterally, Diminished Cardiovascular: No edema, Normal S1 S2 Gastrointestinal: Normal bowel sounds, Soft and benign Musculoskeletal: No clubbing, No swelling Laboratory Data (last 24 hrs) 03/23/19 05:38: PT 16.5 H, INR 1.42 03/23/19 05:38: WBC 11.9 H, Hgb 15.8, Hct 49.5 H, Plt Count 250 03/23/19 05:38: Sodium 137, Potassium 4.3, BUN 43 H, Creatinine 2.13 H, Glucose 222 H, Magnesium 3.1 H D, Total Bilirubin 1.6 H, AST 29, ALT 28, Alkaline Phosphatase 97 - Problems (1) CHF (congestive heart failure) Onset Date: 07/27/17 Current Visit: No Status: Acute Plan: Patient is 73 years of age admitted with worsening dyspnea he has a history of CHF COPD compliant with his medications worsening renal function oxygenation satisfactory his hypercapnic mildly hypoxic white count mildly elevated PT elevated med list needs to be reconciled I suggest adding some bronchodilators continue with steroids echo pending agree with full anticoagulation at risk for thromboembolism he does not really need BiPAP change to nasal cannula oxygen no evidence of sepsis Qualifiers: Qualified Code(s): I50.23 - Acute on chronic systolic (congestive) heart failure
[2019-03-23] MEDS: ASPIRIN EC 81 MG TAB PO SCH (12:13)
[2019-03-23] MEDS: CARVEDILOL 25 MG TAB PO SCH (12:13)
[2019-03-23] MEDS: METHYLPREDNISOLONE 40 MG INJ IV SCH ×2 (12:14→21:07)
[2019-03-23] MEDS: FAMOTIDINE 20 MG/2 ML VIAL IV SCH ×2 (12:14→21:06)
[2019-03-23 13:06] VITALS: BMI 34.6
--- NOTE | 2019-03-23 13:28 | ECHO ---
HEIGHT: 5 ft 10 in WEIGHT: 241 lb 4 oz DATE OF STUDY: 03/23/[address]: Benjamín Lux MD 2-DIMENSIONAL: YES M.MODE: YES DOPPLER: YES COLOR FLOW: YES TDS: YES PORTABLE: NO DEFINITY: NO BUBBLE STUDY: NO DIAGNOSIS: NSTEMI CARDIAC HISTORY: CATHERIZATION: NO SURGERY: NO PROSTHETIC VALVE: NO PACEMAKER: NO MEASUREMENTS (cm) DIASTOLIC (NORMALS) SYSTOLIC (NORMALS) IVSd 1.2 (0.6-1.2) LA Diam (1.9-4.0) LVEF 20-25% LVIDd 6.6 (3.5-5.7) LVIDs 5.5 (2.0-3.5) %FS 16% LVPWd 1.2 (0.6-1.2) Ao Diam 2.8 (2.0-3.7) 2 DIMENSIONAL ASSESSMENT: RIGHT ATRIUM: DILATED LEFT ATRIUM: DILATED RIGHT VENTRICLE: DILATED LEFT VENTRICLE: APICAL THROMBUS TRICUSPID VALVE: NORMAL MITRAL VALVE: NORMAL PULMONIC VALVE: NORMAL AORTIC VALVE: 3 LEAFLET MILD SCLEROSIS PERICARDIAL EFFUSION: NONE AORTIC ROOT: NORMAL LEFT VENTRICULAR WALL MOTION: SEVERE GLOBAL HYPOKINESIS. APICAL AKINESIS. DOPPLER/COLOR FLOW: MILD MITRAL AND TRICUSPID REGURGITATION. NORMAL RIGHT VENTRICULAR SYSTOLIC PRESSURE. COMMENTS: FOUR CHAMBER DILATATION. SEVERELY DEPRESSED LEFT VENTRICULAR EJECTION FRACTION WITH APICAL AKINESIS, APICAL THROMBUS. AORTIC SCLEROSIS WITH NO AORTIC STENOSIS/ AORTIC REGURGITATION. MILD MITRAL AND TRICUSPID REGURGITATION. TECHNOLOGIST: MARGARITA PATEL
[2019-03-23] MEDS: FUROSEMIDE 40 MG/4 ML VIAL IV SCH (17:23)
[2019-03-23 19:33] LABS: Urine Appearance TURBID; Urine Blood 3+ (NEG); Urine Color RED; Urine Glucose TRACE (NEG); Urine Protein 2+ (NEG)
[2019-03-23 20:01] LABS: Urine Microscopic Reflex ORDER UMIC
[2019-03-23 20:25] LABS: Urine Protein/Creatinine Ratio 1.08 ratio (<0.15)
[2019-03-23 20:33] LABS: Urine Amorphous Sediment 4+ /HPF (NONE SEEN); Urine Bacteria >50 /HPF (NONE SEEN); Urine Mucus 3+ /HPF (NONE SEEN); Urine RBC >50 /HPF (NONE SEEN)
[2019-03-23 20:34] LABS: Urine Bilirubin NEGATIVE (NEG); Urine Culture Reflex Order REFLEXED
[2019-03-23] MEDS: HOME MED 1 EA UNK (Budesonide/Formoterol Fumarate [Symbicort 80-4.5 Mcg Inhaler] 2 PUFF) IH SCH (21:00)
[2019-03-23] MEDS: ATORVASTATIN 80 MG TAB PO SCH (21:05)
[2019-03-24] MEDS: IPRATROPIUM BROM 0.5MG/2.5ML NEB SCH ×4 (01:17→20:00)
[2019-03-24] MEDS: ALBUTEROL 2.5 MG/3 ML NEB SOL NEB SCH ×6 (04:00→20:00)
[2019-03-24 05:06] LABS: Absolute Lymphocytes (CBC) 0.7 K/uL (0.7-4.9); Absolute Monocytes 0.4 K/uL (0.1-1.3); Absolute Neutrophil 8.5 K/uL (1.8-8.0); Basophils % 0.3 % (0-1.3); Hematocrit 44.2 % (39.6-49.0); Lymphocytes % 7.2 % (15.3-44.8); MPV 11.5 fL (7.6-11.3); RBC Red Blood Cell Count 5.07 M/uL (4.33-5.43)
[2019-03-24 05:25] LABS: Phosphorus 6.5 mg/dL (2.5-4.9); Potassium 3.9 mmol/L (3.5-5.1)
[2019-03-24] MEDS: CARVEDILOL 25 MG TAB PO SCH (06:17)
[2019-03-24] MEDS: INSULIN -REGULAR HUMAN 50 UNIT/0.5 ML ML SQ SCH ×4 (07:30→20:26)
[2019-03-24] MEDS: HOME MED 1 EA UNK (Budesonide/Formoterol Fumarate [Symbicort 80-4.5 Mcg Inhaler] 2 PUFF) IH SCH (08:08)
[2019-03-24] MEDS: FUROSEMIDE 40 MG/4 ML VIAL IV SCH ×2 (08:27→17:23)
[2019-03-24] MEDS: METHYLPREDNISOLONE 40 MG INJ IV SCH ×2 (08:27→20:27)
[2019-03-24] MEDS: ASPIRIN EC 81 MG TAB PO SCH (08:27)
[2019-03-24] MEDS: CEFTRIAXONE/SWI 1gm 1 GM/10 ML SYR IV SCH (08:27)
[2019-03-24] MEDS: FAMOTIDINE 20 MG/2 ML VIAL IV SCH ×2 (08:28→20:27)
[2019-03-24] MEDS: ENOXAPARIN 100 MG/ML SYR SQ SCH (08:28)
[2019-03-24] MEDS: ARFORMOTEROL TARTRATE 15 MCG/2 ML VIAL.NEB NEB SCH ×2 (08:45→20:00)
--- NOTE | 2019-03-24 08:51 | P.PN ---
Subjective Date of Service: 03/24/19 Chief Complaint: Shortness of breath Physical Examination - Vital Signs Temperature: 98.1 F Blood Pressure: 113/77 Pulse: 92 Respirations: 20 Pulse Ox (%): 100 Assessment & Plan - Problems (Diagnosis) (1) CHF (congestive heart failure) Onset Date: 07/27/17 Current Visit: No Status: Acute Plan: Patient is 73 years of age admitted with worsening dyspnea he has a history of CHF COPD compliant with his medications worsening renal function oxygenation satisfactory his hypercapnic mildly hypoxic white count mildly elevated PT elevated med list needs to be reconciled I suggest adding some bronchodilators continue with steroids echo pending agree with full anticoagulation at risk for thromboembolism he does not really need BiPAP change to nasal cannula oxygen no evidence of sepsis
--- NOTE | 2019-03-24 10:55 | P.PN ---
Subjective Date of Service: 03/24/19 Chief Complaint: Shortness of breath Subjective: No new changes (Patient seen and examined chart reviewed and case discussed with RN. Patient was able to tolerate being off of BiPAP last night. Currently on nasal cannula. Shortness of breath improving) Review of Systems 10-point ROS is otherwise unremarkable Respiratory: As per HPI Physical Examination - Vital Signs Temperature: 98.1 F Blood Pressure: 113/77 Pulse: 92 Respirations: 20 Pulse Ox (%): 100 - Physical Exam General: Alert, Oriented x3, Mild distress, Obese HEENT: Atraumatic, PERRLA, EOMI Neck: Supple Respiratory: Diminished, Crackles/rales, Expiratory wheezes Cardiovascular: Normal S1 S2, Edema, Abnormal pulses, Irregular heart rate/ rhythm Gastrointestinal: Normal bowel sounds, Soft and benign, Non-distended, No tenderness Musculoskeletal: No clubbing, No tenderness Integumentary: No rashes, No erythema Neurological: Normal speech, Normal strength at 5/5 x4 extr, Normal tone, Normal affect - Studies Laboratory Last Values WBC 9.6 K/uL (4.3-10.9) D 03/24/19 04:50 RBC 5.07 M/uL (4.33-5.43) 03/24/19 04:50 Hgb 14.7 g/dL (13.6-17.9) 03/24/19 04:50 Hct 44.2 % (39.6-49.0) 03/24/19 04:50 MCV 87.2 fL (80-100) 03/24/19 04:50 MCH 29.1 pg (27.0-35.0) 03/24/19 04:50 MCHC 33.3 g/dL (32.0-36.0) 03/24/19 04:50 RDW 16.4 % (12.1-15.2) H 03/24/19 04:50 Plt Count 208 K/uL (152-406) 03/24/19 04:50 MPV 11.5 fL (7.6-11.3) H 03/24/19 04:50 Neutrophils % 88.5 % (41.7-73.7) H 03/24/19 04:50 Lymphocytes % 7.2 % (15.3-44.8) L 03/24/19 04:50 Monocytes % 4.0 % (3.3-12.3) 03/24/19 04:50 Eosinophils % 0.0 % (0-4.4) 03/24/19 04:50 Basophils % 0.3 % (0-1.3) 03/24/19 04:50 Absolute Neutrophils 8.5 K/uL (1.8-8.0) H 03/24/19 04:50 Absolute Lymphocytes 0.7 K/uL (0.7-4.9) 03/24/19 04:50 Absolute Monocytes 0.4 K/uL (0.1-1.3) 03/24/19 04:50 Absolute Eosinophils 0.0 K/uL (0-0.5) 03/24/19 04:50 Absolute Basophils 0.0 K/uL (0-0.5) 03/24/19 04:50 PT 16.5 SECONDS (9.5-12.5) H 03/23/19 05:38 INR 1.42 03/23/19 05:38 pH 7.39 (7.35-7.45) 03/23/19 06:02 pCO2 24.0 mmHG (35-45) L 03/23/19 06:02 pO2 93.1 mmHG (75-100) 03/23/19 06:02 HCO3 14.3 mmol/L (22-28) L 03/23/19 06:02 Base Excess -9.7 mmol/L 03/23/19 06:02 Oxyhemoglobin 94.6 % (94-97) 03/23/19 06:02 ABG O2 Sat (Measured) 96.1 % (92-98.5) 03/23/19 06:02 ABG Carboxyhemoglobin 0.9 % (0-1.5) 03/23/19 06:02 ABG Methemoglobin 0.7 % (0-1.5) 03/23/19 06:02 Other Total Hgb 14.9 g/dl (12-18) 03/23/19 06:02 Inspired O2 30.0 % 03/23/19 06:02 Sodium 139 mmol/L (136-145) 03/24/19 04:50 Potassium 3.9 mmol/L (3.5-5.1) 03/24/19 04:50 Chloride 105 mmol/L (98-107) 03/24/19 04:50 Carbon Dioxide 24 mmol/L (21-32) 03/24/19 04:50 BUN 63 mg/dL (7-18) H D 03/24/19 04:50 Creatinine 2.16 mg/dL (0.55-1.3) H 03/24/19 04:50 Estimated GFR 30 mL/min (=/>90) L 03/24/19 04:50 Glucose 163 mg/dL (74-106) H 03/24/19 04:50 POC Glucose 171 mg/dl (65-120) H 03/24/19 07:47 Calcium 8.1 mg/dL (8.5-10.1) L 03/24/19 04:50 Phosphorus 6.5 mg/dL (2.5-4.9) H 03/24/19 04:50 Magnesium 3.1 mg/dL (1.8-2.4) H D 03/23/19 05:38 Total Bilirubin 1.6 mg/dL (0.2-1.0) H 03/23/19 05:38 Direct Bilirubin 0.8 mg/dL (0-0.2) H 03/23/19 05:38 AST 29 U/L (15-37) 03/23/19 05:38 ALT 28 U/L (12-78) 03/23/19 05:38 Alkaline Phosphatase 97 U/L (45-117) 03/23/19 05:38 Rapid Troponin I 1.64 ng/mL (0.0-0.045) H* 03/23/19 05:38 Troponin I 6.70 ng/mL (0.0-0.045) H* 03/24/19 00:13 NT-Pro-B Natriuret Pep 61441 pg/mL (<125) H 03/23/19 05:38 Serum Total Protein 7.2 g/dL (6.4-8.2) 03/23/19 05:38 Albumin 3.0 g/dL (3.4-5.0) L 03/24/19 04:50 Globulin 3.8 g/dL (2.3-3.5) H 03/23/19 05:38 Albumin/Globulin Ratio 0.9 (1.1-1.8) L 03/23/19 05:38 Triglycerides 95 mg/dL (<150) 03/24/19 04:50 Cholesterol 139 mg/dL (<200) 03/24/19 04:50 LDL Cholesterol, Calc 93 (<130) 03/24/19 04:50 HDL Cholesterol 27 mg/dL (40-60) L 03/24/19 04:50 Cholesterol/HDL Ratio 5.15 03/24/19 04:50 Urine Color Red 03/23/19 17:10 Urine Appearance Turbid 03/23/19 17:10 Urine pH 5.0 (5.0-7.0) 03/23/19 17:10 Ur Specific [place] 1.020 (1.005-1.030) 03/23/19 17:10 Urine Ketones Trace (NEG) 03/23/19 17:10 Urine Blood 3+ (NEG) H 03/23/19 17:10 Urine Nitrite Positive (NEG) H 03/23/19 17:10 Urine Bilirubin Negative (NEG) 03/23/19 17:10 Urine Urobilinogen 4.0 mg/dL (0.2-1.0) H 03/23/19 17:10 Ur Leukocyte Esterase 2+ (NEG) H 03/23/19 17:10 Urine RBC >50 /HPF (NONE SEEN) H 03/23/19 17:10 Urine WBC >50 /HPF (<5) H 03/23/19 17:10 Ur Squamous Epith Cells <5 /HPF (NONE SEEN) 03/23/19 17:10 Amorphous Sediment 4+ /HPF (NONE SEEN) H 03/23/19 17:10 Urine Bacteria >50 /HPF (NONE SEEN) H 03/23/19 17:10 Hyaline Casts 5-10 /LPF (NONE SEEN) 03/23/19 17:10 Fine Granular Casts >10 /LPF (NONE SEEN) 03/23/19 17:10 Urine Mucus 3+ /HPF (NONE SEEN) H 03/23/19 17:10 Urine Culture Reflexed Reflexed 03/23/19 17:10 U Random Total Protein 301 mg/dL (<11.9) H 03/23/19 17:10 Urine Creatinine 280.0 mg/dL (20-370) 03/23/19 17:10 Protein/Creatinin Ratio 1.08 ratio (<0.15) H 03/23/19 17:10 Urine Glucose Trace (NEG) 03/23/19 17:10 Urine Total Protein 2+ (NEG) H 03/23/19 17:10 Miscellaneous Test Cancelled 03/23/19 17:10 Microbiology Data (last 24 hrs): Microbiology 03/23/19 05:45 Blood - Blood Aerobic Blood Culture - Preliminary No growth in 24 hours. 03/23/19 05:45 Blood - Blood Anaerobic Blood Culture - Preliminary No growth in 24 hours. 03/23/19 06:00 Blood - Blood Aerobic Blood Culture - Preliminary No growth in 24 hours. 03/23/19 06:00 Blood - Blood Anaerobic Blood Culture - Preliminary No growth in 24 hours. Imagings Data: ECHOCARDIOGRAM REPORT CC: Zac Jaime MD ECHOCARDIOGRAM REPORT CC: Zac Jaime MD NAME: MELVA SUNN ADMIT: 03/23/[address]: Benjamín Lux MD : [address]: Benjamín Lux MD REFER DR: PT TYPE: ADM IN LOCATION: 3RD-ICU 7-A DISCHARGE: Report Status: Signed HEIGHT: 5 ft 10 in WEIGHT: 241 lb 4 oz DATE OF STUDY: 03/23/[address]: Benjamín Lux MD 2-DIMENSIONAL: YES M.MODE: YES DOPPLER: YES COLOR FLOW: YES TDS: YES PORTABLE: NO DEFINITY: NO BUBBLE STUDY: NO DIAGNOSIS: NSTEMI CARDIAC HISTORY: CATHERIZATION: NO SURGERY: NO PROSTHETIC VALVE: NO PACEMAKER: NO MEASUREMENTS (cm) DIASTOLIC (NORMALS) SYSTOLIC (NORMALS) IVSd 1.2 (0.6-1.2) LA Diam (1.9-4.0) LVEF 20-25% LVIDd 6.6 (3.5-5.7) LVIDs 5.5 (2.0-3.5) %FS 16% LVPWd 1.2 (0.6-1.2) Ao Diam 2.8 (2.0-3.7) 2 DIMENSIONAL ASSESSMENT: RIGHT ATRIUM: DILATED LEFT ATRIUM: DILATED RIGHT VENTRICLE: DILATED LEFT VENTRICLE: APICAL THROMBUS TRICUSPID VALVE: NORMAL MITRAL VALVE: NORMAL PULMONIC VALVE: NORMAL AORTIC VALVE: 3 LEAFLET MILD SCLEROSIS PERICARDIAL EFFUSION: NONE AORTIC ROOT: NORMAL LEFT VENTRICULAR WALL MOTION: SEVERE GLOBAL HYPOKINESIS. APICAL AKINESIS. DOPPLER/COLOR FLOW: MILD MITRAL AND TRICUSPID REGURGITATION. NORMAL RIGHT VENTRICULAR SYSTOLIC PRESSURE. COMMENTS: FOUR CHAMBER DILATATION. SEVERELY DEPRESSED LEFT VENTRICULAR EJECTION FRACTION WITH APICAL AKINESIS, APICAL THROMBUS. AORTIC SCLEROSIS WITH NO AORTIC STENOSIS/ AORTIC REGURGITATION. MILD MITRAL AND TRICUSPID REGURGITATION. TECHNOLOGIST: MARGARITA SIERRA [facility] Medications List Reviewed: Yes Assessment And Plan - Plan 1. Acute respiratory failure with hypoxia. Patient now tolerating being off of BiPAP. Secondary to CHF COPD. Appreciate pulmonology input. Currently on nasal cannula. 2. Non ST elevation [place]. Continue with full-dose anticoagulation renally dosed. Continue chest pain guidelines. Patient needs cardiac catheterization once kidney function and improves. Echocardiogram shows apical thrombus four- chamber dilatation EF of 20-25% 3. Acute systolic heart failure exacerbation. Will continue with CHF guidelines appreciate Dr. Cornelius's input. Monitor I/Os. Daily weight. Free fluid restriction. 4. Acute COPD exacerbation. Continue IV steroids and nebulizer treatments. Improving. 5. Obesity BMI 34.3 6. Acute on chronic kidney injury creatinine worsening. Nephrology on board. Monitor creatinine. 7. Peripheral vascular disease. Stable Step-down from ICU. Plan to discharge in: Greater than 2 days - Code Status/Comfort Care Code Status Assessed: Yes
[2019-03-24] MEDS: DULERA 100/5 (MOMETASONE/FORMOTEROL) INHALER IH SCH ×2 (11:29→20:25)
--- NOTE | 2019-03-24 11:39 | EKG ---
Test Date: 2019-03-23 Test Time: 05:32:32 Dry Cans Back Tender: AER MEASUREMENT RESULTS: Intervals: Rate: 124 NC: 168 QRSD: 126 QT: 376 QTc: 540 Loyal: P: 96 NC: 168 QRS: -38 T: 96 INTERPRETIVE STATEMENTS: Sinus tachycardia with premature ventricular complexes Left axis deviation Nonspecific intraventricular block T wave abnormality, consider lateral ischemia Abnormal ECG Compared to ECG 09/30/2018 09:40:01 Ventricularl premature complex(es) now present T-wave inversion is less pronounced in lateral leads Atrial fibrillation no longer present Myocardial infarct finding no longer present Electronically Signed On 03-24-19 07:41:31 CDT by Zac Jaime
--- NOTE | 2019-03-24 11:40 | HP ---
Date of Admission: 03/23/2019 Chief Complaint: Shortness of breath. Code Status: Full. History Of Present Illness: The patient is a 73-year-old male with past medical history of CHF, [place] nary artery disease status post cardiac catheterization in 2017 along with COPD, hypertension, hyperl ipidemia, and atrial fibrillation, who comes in with shortness of breath. The patient was in his [facility] state of health until several months prior when he started having progressive worsening of shortne ss of breath. The patient's symptoms are worse with exertion. Denies any fevers, chills, cough, no sputum production. Denies any ill contacts. The patient came into the ER due to acute worsening of his symptoms. Upon arrival, he was tachycardic, tachypneic, had to be placed on BiPAP due to respira tory distress. His imaging studies showed heart failure pattern. The patient received Lasix, breath ing treatments, fentanyl for pain and was referred for admission. Dr. Santa had not contacted me dire ctly. I spoke with Dr. Brandt this morning, who checked out the patient to [facility] for admission. When seen in the ER, the patient was sedated due to fentanyl. Most of the HPI is obtained from previous medical records, ER staff, and from the patient himself. The patient appeared to be in respiratory d istress on BiPAP. Past Medical History: Hypertension, hyperlipidemia, atrial fibrillation, COPD, congestive heart fail ure, EF of 35%, coronary artery disease. Past Surgical History: Cysts on the back, neck, and chest. Allergies: NO KNOWN DRUG ALLERGIES. Medications: List reviewed. Social History: The patient is a former smoker. No alcohol use or illicit drug use. Family History: Father had TB. Review of Systems: Limited due to patient's medical condition. A 10-point system is negative except for HPI. Physical Examination: Vital Signs: Blood pressure 161/89, pulse 128, respirations 30, temperature 97.8, O2 100% on 40% of BiPAP. General: Asleep, but arousable, in some respiratory distress. Morbidly obese. Ill-appearing male. HEENT: Normocephalic, atraumatic. PERRLA. EOMI. Neck: Supple. Jugular venous distention present. CV: S1, S2. Irregularly irregular. Peripheral pulses present. Respiratory: Diminished breath sounds. Some crackles are present, tachypneic. No use of accessory muscles. Gastrointestinal: Abdomen is soft, nontender, nondistended. Positive bowel sounds. Extremities: No clubbing, cyanosis. The patient has pedal edema. No calf tenderness. Neurologic: Cranial nerves 2-12 intact grossly. No focal neurological deficit. Speech is normal. Psych: Deferred. Skin: No rashes. Normal skin turgor. Laboratory Data: WBC 11.9, H and H 15.8 and 9.5, platelets 250, neutrophils 72%. INR 1.42. ABG; pH 7.39, pCO2 24, PO2 93.1, bicarb 14.3. Sodium 137, potassium 4.3, chloride 102, CO2 17, BUN 43, crea tinine 2.13, glucose 222, calcium 8.5, magnesium 3.1. Rapid troponin is 1.64. BNP 50274. Chest x-r ay, no official report, shows pulmonary congestive pattern. Assessment And Plan: A 73-year-old male with: 1.Acute respiratory failure with hypoxia secondary to chronic obstructive pulmonary disease and [place] estive heart failure. 2.Acute systolic congestive heart failure exacerbation. We will continue with congestive heart fail ure guidelines. 3.Acute chronic obstructive pulmonary disease exacerbation. We will continue breathing treatments a nd IV steroids. Pulmonology has been consulted. 4.Nro-IF-mwpgwbogl myocardial infarction. Start on Lovenox 1 mg/kg. Obtain serial cardiac enzymes. Start on chest pain guidelines. Obtain echocardiogram. Cardiology has been consulted. 5.Obesity. 6.Essential hypertension. We will resume home medications as appropriate. 7.Hyperlipidemia. Continue statin. 8.Atrial fibrillation, chronic, not on blood thinners. 9.Diabetes mellitus type 2. We will start on sliding scale insulin. Monitor blood glucose levels. Plan: Admit to ICU, place as inpatient. Length of stay greater than 2 midnights. INOCENTE Voice ID: [id number]
--- NOTE | 2019-03-24 11:42 | CON ---
Chief Complaint: Shortness of breath. History Of Present Illness: Mr. Gonzales is a patient who is known to have very severe vascular disease. We know he has 3-vessel coronary heart disease, recommended he go through bypass surgery in 2017 but that has never happened. Various things have happened that got into the way. The patient has very few resources. He was unable to go to the appointment for one of his appointments with a heart surge on. Another time, it sounds like he may have been refused because the anatomy is too difficult, I am not sure about that. 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 So, if we do a cardiac cath, we do not want to try it from the femoral appr [facility]. Mr. Gonzales came to the hospital with progressively worsening shortness of breath, progressively w orsening chest tightness and pain. Since he got here, he has been feeling better. He has had diures is. He has a chronic pain syndrome and takes fentanyl patch as an outpatient. Allergies: NO DRUG ALLERGIES ARE KNOWN. Social History: He does not smoke cigarettes now. He did remotely. Home Medications: Have been amiodarone 200 mg either once or twice a day, atorvastatin 80 mg once a day, Coreg 25 mg once a day, Lasix 80 mg once or twice per day depending. Past Medical History: He has had a previous myocardial infarction. His last heart catheterization t hat we know of was in 2017. Physical Examination: General: The patient is alert. He is oriented. He is not in acute distress. He is in an ICU bed. Lungs: Reveal sparse crackles. Heart: Irregularly irregular and the heart rate is about 80 beats per minute. Vital Signs: Most recent blood pressure 150/65, O2 saturation 100% on 30% FiO2. Extremities: Distal pulses are not palpable. He has some toes that are blue. He has chronic cutane ous changes that look like both venous stasis and some kind of dermatitis and a lot of fungal infecti on in his feet as well. Laboratory Data: Reveals elevated troponin, the only 1 we have is 1.64. His creatinine is 2.13. N- terminal proBNP is 12,822. He has elevated bilirubin, both direct and total. Impression: Mr. Gonzales has severe coronary heart disease, left ventricular dysfunction, chronic atrial fibrillation, congestive heart failure, all of these things are worse now than they were a few years ago. If we can get him improved, so he could withstand a cardiac cath, we should reangiogram his cor onary arteries in his bypass surgery that he probably should have had done a few years ago and get hi s aorta worked on. I think he could feel a lot better and have a much better prognosis if we are abl e to accomplish those things. I think it will be at least a few days before we can do a cardiac cath just to try and improve his renal function. KASANDRA/GISEL Voice ID: [id number] Report ID: [id number]
--- NOTE | 2019-03-24 13:53 | P.PN ---
Subjective Date of Service: 03/24/19 Chief Complaint: Shortness of breath Subjective: No new changes pt admitted for SOB YASSINE cr 2.1 and stable Cont lasix NSTEMi , no plan for intervention at this time F/u renal US result Physical Examination - Vital Signs Temperature: 98.1 F Blood Pressure: 96/73 Pulse: 73 Respirations: 16 Pulse Ox (%): 99 - Physical Exam General: In no apparent distress, Oriented x3 HEENT: Atraumatic Neck: Supple, Without JVD or thyroid abnormality Respiratory: Diminished Cardiovascular: No edema, Regular rate/rhythm, Normal S1 S2, No gallops, No rubs , No murmurs Gastrointestinal: Soft and benign, Non-distended Musculoskeletal: No clubbing, No swelling - Studies Medications List Reviewed: Yes Assessment And Plan - Current Problems (Diagnosis) (1) YASSINE (acute kidney injury) Current Visit: Yes Status: Acute (2) NSTEMI (non-ST elevated myocardial infarction) Onset Date: 05/11/17 Current Visit: No Status: Acute (3) Pleural effusion Current Visit: No Status: Acute - Plan YASSINE Cr baseline ~1.1 in 09/2018 due to cardiorenal syndrome F/U renal US cont lasix renal dose meds UPC ~1.0, ua many RBCs , previous UA -ve Acute CHF exacerbation with Pulmonary edema Cont lasix NSTEMI as per cardiology UTI cont rocephin
[2019-03-24] MEDS: CARVEDILOL 3.125 MG TAB PO SCH (17:23)
[2019-03-24] MEDS ORDERED: NITROGLYCERIN 0.4 MG/TAB SL ONE (18:10)
--- NOTE | 2019-03-24 18:52 | RAD REPORT ---
EXAM DESCRIPTION: US - Renal Ultrasound-Complete - 03/23/2019 7:53 pm CLINICAL HISTORY: YASSINE Flank pain COMPARISON: Renal Ultrasound-Complete dated 05/18/2018 FINDINGS: Both kidneys demonstrate increased echogenicity. The right kidney measures 11.4 x 4.7 x 4.5 cm. No hydronephrosis, focal mass or perinephric fluid. The left kidney measures 11.7 x 5.9 x 4.9 cm. No hydronephrosis, focal mass or perinephric fluid. The urinary bladder is incompletely distended without gross abnormality seen. IMPRESSION: Increased renal echogenicity seen compatible with underlying medical renal disease.
[2019-03-24] MEDS ORDERED: MORPHINE 2 MG/ML SYR IV PRN (19:11)
[2019-03-24] MEDS ORDERED: NITROGLYCERIN/D5W 50 MG/250 ML BTL IV PRN (19:11)
--- NOTE | 2019-03-24 19:48 | P.CNS ---
Date of Consult: 03/23/19 Date of service 03-23-2019 This is a 73-year-old gentleman with the above medical history of hypertension, hyperlipidemia, prematurity, complicated with congestive heart failure ejection fraction of 35%, patient noted to have chronic kidney disease creatinine 1.1 back in September 2018 with a GFR of 66 patient had a previous admission with acute kidney injury secondary to start you renal at that time creatinine dropped to 2 rate down after diuresis came to the hospital complaining of leg shortness of breath and 5 cardiologypatient had for follow-up occlusion of water Renal, patient denies any chest pain been denied taking nonsteroidal patient found to have elevation creatinine patient will been consulted patient denied any the patient to the hospital no IV cementing 18 over volume Verbalized patient was started on Lasix to eating well Past medical history Hypertension COPD heart disease complicated with congestive heart ejection fraction of 35% Chronic kidney. Baseline creatinine 1.1 back in September 2018 Allergy no known drug allergy family Hypertension GoSurgical Cardiac cath Home medicaion: revewed ROS : Neck no pain Pain GI No nausea no vomiting no polyuria urine. NURSING HOME ADMISSIONS DIRECTOR not applicable Pulmonary Shortness of breath Cardiovascular leg edema Orthopnea Chest tight ness Neuro no neuropathy Muscular Had low back pain skin no rash endo no poly dypsia PE : BP 134/66 P 77 Chest crackles bilatral base heart S1 S2 SM Abdomen soft nontender no organomegaly Extremity +1 edema, no bruises no ecchymosis no nail hemorrhage Neurologic oriented no focal Labs reviewed Current medication reviewed Assessment and plan acute kidney injury secondary to poor perfusion ATN secondary to cardiorenal over volume: Increase Lasix to 80 mg twice a day Giving the history of occluded Warta atheroemboli need to be-year-old will send for complement eosinophil and LDH We will monitor the patient closely Hypertension controlled optimal Will utilize a blood pressure for more diuresis CHF exacerbation/artery disease As by cardiology We will try to talk to me the fluid status of the patient with the diuresis
[2019-03-24] MEDS: ATORVASTATIN 80 MG TAB PO SCH (20:26)
--- NOTE | 2019-03-24 21:08 | PN ---
Mr. Gonzales is 73, was admitted on 03/23/[address] Lux's service. He was seen by Dr. Jaime on the day. Mr. Gonzales is a very complicated patient. He has a history of chronic systolic congestive hea rt failure, now with acute exacerbation. He has an ejection fraction of 20-25% with a left ventricul ar apical thrombus. He has significant renal insufficiency with a creatinine of 2.16. He has a hist ory of COPD, severe peripheral arterial disease with complete occlusion of his aorta just below the r enals. He has a history of CAD, morbidly obese. I scheduled him initially for CABG as well as aorto bifemoral surgery, but failed to show up to his appointment because he could not get a ride. He is n ow here with congestive heart failure exacerbation. He has improved. He is breathing better, and he is diuresing fairly well. The only medication he was getting really was Lasix IV in addition to his inhalers. I recommend we restart Coreg at a low dose 3.125 b.i.d., and I think we should restart hi s Aldactone watch his kidney function. He was on Xarelto at one point, and we should consider resumi ng that down the road. He is now on Lovenox. Mr. Gonzales certainly would be a candidate probably in the near future for a repeat heart catheterization with an arm approach and have him be reconsidered for surgery on his heart with a possible defibrillator and then maybe deal with his peripheral arterial disease later. SARAH/GISEL Voice ID: [id number] Report ID: [id number]
[2019-03-25] MEDS: ALBUTEROL 2.5 MG/3 ML NEB SOL NEB SCH ×3 (04:00→08:35)
[2019-03-25] MEDS: CARVEDILOL 3.125 MG TAB PO SCH ×2 (06:02→17:27)
[2019-03-25 06:10] LABS: Absolute Lymphocytes (CBC) 0.6 K/uL (0.7-4.9); Absolute Monocytes 0.7 K/uL (0.1-1.3); Absolute Neutrophil 11.1 K/uL (1.8-8.0); Basophils % 0.1 % (0-1.3); Hematocrit 44.6 % (39.6-49.0); Lymphocytes % 5.1 % (15.3-44.8); MPV 11.7 fL (7.6-11.3); Monocytes % 5.6 % (3.3-12.3); RBC Red Blood Cell Count 5.13 M/uL (4.33-5.43)
[2019-03-25 06:27] LABS: Albumin 3.1 g/dL (3.4-5.0); Phosphorus 7.5 mg/dL (2.5-4.9); Potassium 4.3 mmol/L (3.5-5.1)
[2019-03-25 08:30] LABS: Blood Morphology Comment NOT SEEN (NOT SEEN); Platelet Estimate ADEQ
[2019-03-25] MEDS: ARFORMOTEROL TARTRATE 15 MCG/2 ML VIAL.NEB NEB SCH ×2 (08:35→20:00)
[2019-03-25] MEDS: IPRATROPIUM BROM 0.5MG/2.5ML NEB SCH ×2 (08:35)
--- NOTE | 2019-03-25 08:40 | EKG ---
Test Date: 2019-03-24 Test Time: 17:51:11 Surgical Garment Fitter: JOSEPH MEASUREMENT RESULTS: Intervals: Rate: 74 ME: QRSD: 104 QT: 404 QTc: 448 [place]: P: 53 ME: QRS: 2 T: 245 INTERPRETIVE STATEMENTS: Atrial flutter with variable AV block with premature ventricular or aberrantly conducted complexes Anterior infarct, age undetermined ST abnormality, possible inferior subendocardial injury Abnormal ECG Compared to ECG 03/23/2019 05:32:32 Myocardial infarct finding now present ST (T wave) deviation now present Sinus tachycardia no longer present Left-axis deviation no longer present T-wave abnormality no longer present Possible ischemia no longer present Electronically Signed On 03-25-19 08:39:40 CDT by Zac Jaime
[2019-03-25] MEDS: FAMOTIDINE 20 MG/2 ML VIAL IV SCH (09:00)
[2019-03-25] MEDS: FUROSEMIDE 40 MG/4 ML VIAL IV SCH ×2 (09:00→16:15)
[2019-03-25] MEDS: ENOXAPARIN 100 MG/ML SYR SQ SCH (09:00)
[2019-03-25] MEDS: METHYLPREDNISOLONE 40 MG INJ IV SCH (09:00)
--- NOTE | 2019-03-25 09:03 | RAD REPORT ---
EXAM DESCRIPTION: RAD - Chest Single View - 03/25/2019 8:00 am CLINICAL HISTORY: F/U pleural effusion Chest pain. COMPARISON: Chest Single View dated 03/23/2019; Chest Single View dated 09/28/2018; Chest Single View dated 05/20/2018; Chest Single View dated 05/19/2018 FINDINGS: Portable technique limits examination quality. Right-sided pleural and parenchymal opacification shows mild improvement since the comparative study. In general, mild improvement lung aeration is noted. The heart is moderately enlarged. No displaced fractures. IMPRESSION: Mild improvement in lung aeration since comparative study.
[2019-03-25] MEDS: SPIRONOLACTONE 25 MG TABLET PO SCH (09:16)
[2019-03-25] MEDS: INSULIN -REGULAR HUMAN 50 UNIT/0.5 ML ML SQ SCH ×4 (09:16→20:28)
[2019-03-25] MEDS: ASPIRIN EC 81 MG TAB PO SCH (09:16)
[2019-03-25] MEDS: DULERA 100/5 (MOMETASONE/FORMOTEROL) INHALER IH SCH (09:17)
[2019-03-25] MEDS: CEFTRIAXONE/SWI 1gm 1 GM/10 ML SYR IV SCH (09:23)
--- NOTE | 2019-03-25 11:12 | P.PN ---
Subjective Date of Service: 03/25/19 Chief Complaint: Shortness of breath Subjective: Improving (Patient is improving condition stable he was transferred back to the ICU due to chest pain renal function is worse) Review of Systems General: Weakness Respiratory: Shortness of Breath Physical Examination - Vital Signs Temperature: 97.7 F Blood Pressure: 108/74 Pulse: 78 Respirations: 18 Pulse Ox (%): 96 - Physical Exam General: Alert, In no apparent distress, Oriented x3 Respiratory: Clear to auscultation bilaterally Cardiovascular: No edema, Irregular heart rate/rhythm - Studies Medications List Reviewed: Yes Assessment & Plan - Problems (Diagnosis) (1) CHF (congestive heart failure) Onset Date: 07/27/17 Current Visit: No Status: Acute Plan: Patient's condition is stable renal function worse agree with decreasing his diuretics severe congestive heart failure Lasix dose was reviewed reduce to 40 mg IV b.i.d. patient is also on spironolactone chest x-ray shows cardiomegaly possible right-sided pleural effusion is fully anti coagulated (2) COPD (chronic obstructive pulmonary disease) Current Visit: Yes Status: Acute Plan: Change to p.o. prednisone continue with bronchodilators continue with bronchodilators Dc Symbicort continue with [place] possible urosepsis urine culture is pending Qualifiers: Emphysema type: unspecified
[2019-03-25] MEDS ORDERED: IPRATROPIUM BROM 0.5MG/2.5ML NEB PRN (11:21)
--- NOTE | 2019-03-25 13:13 | PN ---
Subjective: Mr. Gonzales had some more chest pain. I feel sure he has very critical CAD. I do not think he should be moved out of ICU until we can do a cardiac cath. At this point, cardiac cath is eusebio morgan for March 28. His creatinine is 3.20, so we may have to do it with the understanding that he will likely be a dialysis patient afterwards. We will see over the weekend if his creatinine can improve or if we want to change our focus completely and go to a do not resuscitate status on him. He is cri tically ill and has overwhelming medical problems that may end up in a very poor outcome if he does g o to a bypass surgery. SH/MODL Voice ID: [id number] Report ID: [id number]
--- NOTE | 2019-03-25 13:32 | P.PN ---
Subjective Date of Service: 03/25/19 Chief Complaint: Shortness of breath Subjective: Worsening (Patient seen and examined chart reviewed and case discussed with RN Dr. Barcenas and Dr. Jaime Patient had another episode of chest pain was transferred back to ICU. Improved with sublingual nitro x2) Review of Systems 10-point ROS is otherwise unremarkable Cardiovascular: As per HPI Physical Examination - Vital Signs Temperature: 97.7 F Blood Pressure: 104/66 Pulse: 72 Respirations: 16 Pulse Ox (%): 98 - Physical Exam General: Alert, Oriented x3, Moderate distress, Obese, Other (Ill-appearing older than stated age) HEENT: Atraumatic, PERRLA, EOMI Neck: Supple, JVD distended Respiratory: Diminished, Crackles/rales Cardiovascular: Normal S1 S2, Edema, Abnormal pulses, Irregular heart rate/ rhythm Gastrointestinal: Normal bowel sounds, Soft and benign, Non-distended, No tenderness Musculoskeletal: No tenderness Integumentary: No rashes Neurological: Normal speech, Normal strength at 5/5 x4 extr, Normal tone, Normal affect - Studies Laboratory Last Values WBC 12.4 K/uL (4.3-10.9) H D 03/25/19 05:14 RBC 5.13 M/uL (4.33-5.43) 03/25/19 05:14 Hgb 14.8 g/dL (13.6-17.9) 03/25/19 05:14 Hct 44.6 % (39.6-49.0) 03/25/19 05:14 MCV 86.9 fL (80-100) 03/25/19 05:14 MCH 28.9 pg (27.0-35.0) 03/25/19 05:14 MCHC 33.3 g/dL (32.0-36.0) 03/25/19 05:14 RDW 16.1 % (12.1-15.2) H 03/25/19 05:14 Plt Count 227 K/uL (152-406) 03/25/19 05:14 MPV 11.7 fL (7.6-11.3) H 03/25/19 05:14 Neutrophils % 89.2 % (41.7-73.7) H 03/25/19 05:14 Lymphocytes % 5.1 % (15.3-44.8) L 03/25/19 05:14 Monocytes % 5.6 % (3.3-12.3) 03/25/19 05:14 Eosinophils % 0.0 % (0-4.4) 03/25/19 05:14 Basophils % 0.1 % (0-1.3) 03/25/19 05:14 Absolute Neutrophils 11.1 K/uL (1.8-8.0) H 03/25/19 05:14 Segmented Neutrophils 89 % (40-80) H 03/25/19 05:14 Absolute Lymphocytes 0.6 K/uL (0.7-4.9) L 03/25/19 05:14 Lymphocytes 9 % (15-42) L 03/25/19 05:14 Monocytes 2 % (0-10) 03/25/19 05:14 Absolute Monocytes 0.7 K/uL (0.1-1.3) 03/25/19 05:14 Absolute Eosinophils 0.0 K/uL (0-0.5) 03/25/19 05:14 Absolute Basophils 0.0 K/uL (0-0.5) 03/25/19 05:14 Morphology Comment Not seen (NOT SEEN) 03/25/19 05:14 PT 16.5 SECONDS (9.5-12.5) H 03/23/19 05:38 INR 1.42 03/23/19 05:38 pH 7.39 (7.35-7.45) 03/23/19 06:02 pCO2 24.0 mmHG (35-45) L 03/23/19 06:02 pO2 93.1 mmHG (75-100) 03/23/19 06:02 HCO3 14.3 mmol/L (22-28) L 03/23/19 06:02 Base Excess -9.7 mmol/L 03/23/19 06:02 Oxyhemoglobin 94.6 % (94-97) 03/23/19 06:02 ABG O2 Sat (Measured) 96.1 % (92-98.5) 03/23/19 06:02 ABG Carboxyhemoglobin 0.9 % (0-1.5) 03/23/19 06:02 ABG Methemoglobin 0.7 % (0-1.5) 03/23/19 06:02 Other Total Hgb 14.9 g/dl (12-18) 03/23/19 06:02 Inspired O2 30.0 % 03/23/19 06:02 Sodium 138 mmol/L (136-145) 03/25/19 05:14 Potassium 4.3 mmol/L (3.5-5.1) 03/25/19 05:14 Chloride 102 mmol/L (98-107) 03/25/19 05:14 Carbon Dioxide 24 mmol/L (21-32) 03/25/19 05:14 BUN 93 mg/dL (7-18) H D 03/25/19 05:14 Creatinine 3.20 mg/dL (0.55-1.3) H D 03/25/19 05:14 Estimated GFR 19 mL/min (=/>90) L 03/25/19 05:14 Glucose 212 mg/dL (74-106) H 03/25/19 05:14 POC Glucose 211 mg/dl (65-120) H 03/25/19 11:29 Calcium 8.2 mg/dL (8.5-10.1) L 03/25/19 05:14 Phosphorus 7.5 mg/dL (2.5-4.9) H 03/25/19 05:14 Magnesium 3.1 mg/dL (1.8-2.4) H D 03/23/19 05:38 Total Bilirubin 1.6 mg/dL (0.2-1.0) H 03/23/19 05:38 Direct Bilirubin 0.8 mg/dL (0-0.2) H 03/23/19 05:38 AST 29 U/L (15-37) 03/23/19 05:38 ALT 28 U/L (12-78) 03/23/19 05:38 Alkaline Phosphatase 97 U/L (45-117) 03/23/19 05:38 Rapid Troponin I 1.64 ng/mL (0.0-0.045) H* 03/23/19 05:38 Troponin I 6.70 ng/mL (0.0-0.045) H* 03/24/19 00:13 NT-Pro-B Natriuret Pep 03149 pg/mL (<125) H 03/23/19 05:38 Serum Total Protein 7.2 g/dL (6.4-8.2) 03/23/19 05:38 Albumin 3.1 g/dL (3.4-5.0) L 03/25/19 05:14 Globulin 3.8 g/dL (2.3-3.5) H 03/23/19 05:38 Albumin/Globulin Ratio 0.9 (1.1-1.8) L 03/23/19 05:38 Triglycerides 95 mg/dL (<150) 03/24/19 04:50 Cholesterol 139 mg/dL (<200) 03/24/19 04:50 LDL Cholesterol, Calc 93 (<130) 03/24/19 04:50 HDL Cholesterol 27 mg/dL (40-60) L 03/24/19 04:50 Cholesterol/HDL Ratio 5.15 03/24/19 04:50 Urine Color Red 03/23/19 17:10 Urine Appearance Turbid 03/23/19 17:10 Urine pH 5.0 (5.0-7.0) 03/23/19 17:10 Ur Specific [place] 1.020 (1.005-1.030) 03/23/19 17:10 Urine Ketones Trace (NEG) 03/23/19 17:10 Urine Blood 3+ (NEG) H 03/23/19 17:10 Urine Nitrite Positive (NEG) H 03/23/19 17:10 Urine Bilirubin Negative (NEG) 03/23/19 17:10 Urine Urobilinogen 4.0 mg/dL (0.2-1.0) H 03/23/19 17:10 Ur Leukocyte Esterase 2+ (NEG) H 03/23/19 17:10 Urine RBC >50 /HPF (NONE SEEN) H 03/23/19 17:10 Urine WBC >50 /HPF (<5) H 03/23/19 17:10 Ur Squamous Epith Cells <5 /HPF (NONE SEEN) 03/23/19 17:10 Amorphous Sediment 4+ /HPF (NONE SEEN) H 03/23/19 17:10 Urine Bacteria >50 /HPF (NONE SEEN) H 03/23/19 17:10 Hyaline Casts 5-10 /LPF (NONE SEEN) 03/23/19 17:10 Fine Granular Casts >10 /LPF (NONE SEEN) 03/23/19 17:10 Urine Mucus 3+ /HPF (NONE SEEN) H 03/23/19 17:10 Urine Culture Reflexed Reflexed 03/23/19 17:10 U Random Total Protein 301 mg/dL (<11.9) H 03/23/19 17:10 Urine Creatinine 280.0 mg/dL (20-370) 03/23/19 17:10 Protein/Creatinin Ratio 1.08 ratio (<0.15) H 03/23/19 17:10 Urine Glucose Trace (NEG) 03/23/19 17:10 Urine Total Protein 2+ (NEG) H 03/23/19 17:10 Miscellaneous Test Cancelled 03/23/19 17:10 Microbiology Data (last 24 hrs): Microbiology 03/23/19 05:45 Blood - Blood Aerobic Blood Culture - Preliminary No growth in 24 hours. 03/23/19 05:45 Blood - Blood Anaerobic Blood Culture - Preliminary No growth in 24 hours. 03/23/19 06:00 Blood - Blood Aerobic Blood Culture - Preliminary No growth in 24 hours. 03/23/19 06:00 Blood - Blood Anaerobic Blood Culture - Preliminary No growth in 24 hours. Imagings Data: Chest x-ray MPRESSION: Mild improvement in lung aeration since comparative study. Medications List Reviewed: Yes Assessment And Plan - Plan 1. Acute respiratory failure with hypoxia. Patient had to be placed back on BiPAP. Secondary to CHF COPD. Appreciate pulmonology input. Not able to be weaned successfully to nasal cannula. 2. Non ST elevation NE. Continue with full-dose anticoagulation renally dosed. Continue chest pain guidelines. Patient needs cardiac catheterization once kidney function and improves. Echocardiogram shows apical thrombus four- chamber dilatation EF of 20-25%. Patient had recurrent chest pain improved with sublingual nitro 3. Acute systolic heart failure exacerbation. Will continue with CHF guidelines appreciate Dr. Cornelius's input. Monitor I/Os. Daily weight. Free fluid restriction. Decrease Lasix dose 4. Acute COPD exacerbation. Continue IV steroids and nebulizer treatments. Improving. Inhalers adjusted. 5. Obesity BMI 34.3 6. Acute on chronic kidney injury creatinine worsening. Nephrology on board. Monitor creatinine. Decrease dose of Lasix. The patient may need dialysis. Urinary output has dramatically fallen 7. Peripheral vascular disease. Stable Overall poor prognosis Patient unable to have cardiac catheterization at this moment due to elevated kidney function. Not a candidate for bypass due to apical thrombus. Will discuss with family - Code Status/Comfort Care Code Status Assessed: Yes
--- NOTE | 2019-03-25 14:39 | P.PN ---
Subjective Date of Service: 03/25/19 Chief Complaint: Shortness of breath Pt with cardiorenal syndrome , started on lasix , clinically improved , UO decreased and Cr trending UP CXR with no significant changes Chest is clear on examination today will order chest CT for better volume evaluation willodrer full srology W/u include Anti GBM and ANCA If Cr cont to worse then Pt might need HD reduce lasix for now NSTEMi , no plan for intervention at this time Physical Examination - Vital Signs Temperature: 97.7 F Blood Pressure: 104/66 Pulse: 72 Respirations: 16 Pulse Ox (%): 98 - Physical Exam General: In no apparent distress, Oriented x3 HEENT: Atraumatic Neck: Supple, Without JVD or thyroid abnormality Respiratory: Clear to auscultation bilaterally, Normal air movement Cardiovascular: No edema, Regular rate/rhythm, Normal S1 S2 Musculoskeletal: No swelling - Studies Medications List Reviewed: Yes Assessment And Plan - Current Problems (Diagnosis) (1) YASSINE (acute kidney injury) Current Visit: Yes Status: Acute (2) NSTEMI (non-ST elevated myocardial infarction) Onset Date: 05/11/17 Current Visit: No Status: Acute (3) Pleural effusion Current Visit: No Status: Acute - Plan YASSINE Cr baseline ~1.1 in 09/2018 due to cardiorenal syndrome renal US: echogenic kidneys will reduce lasix for UO decreasing , CXR with no significant changes but clinically improved will order hest CT for better evaluation and adjust lasix prn renal dose meds UPC ~1.0, ua many RBCs , previous UA -ve Acute CHF exacerbation with Pulmonary edema Cont lasix NSTEMI as per cardiology UTI cont Rocephin
--- NOTE | 2019-03-25 15:14 | RAD REPORT ---
EXAM DESCRIPTION: CT - Thorax Wo Con - 03/25/2019 3:03 pm CLINICAL HISTORY: sob COMPARISON: March 25, 2019 chest x-ray TECHNIQUE: Computed axial tomography of the chest was obtained. Contrast was not requested. All CT scans are performed using dose optimization technique as appropriate and may include automated exposure control or mA/KV adjustment according to patient size. FINDINGS: The evaluation of mediastinum, yvrose and vessels is limited secondary to lack of IV contras t administration. Small left and small to moderate right pleural effusions. Bibasilar atelectasis No mediastinal or hilar lymphadenopathy is seen. Cardiomegaly. 3.2 centimeter mass within the right posterior upper back unchanged from April 2018 likely benign IMPRESSION: Small to moderate right and small left pleural effusions with bibasilar atelectasis
[2019-03-25] MEDS: ATORVASTATIN 80 MG TAB PO SCH (20:14)
[2019-03-25] MEDS: predniSONE 20 MG TAB PO SCH (20:14)
[2019-03-26 05:25] LABS: Absolute Lymphocytes (CBC) 0.5 K/uL (0.7-4.9); Basophils % 0.2 % (0-1.3); Hematocrit 43.3 % (39.6-49.0); MPV 11.4 fL (7.6-11.3); Monocytes % 9.2 % (3.3-12.3); RBC Red Blood Cell Count 4.95 M/uL (4.33-5.43)
[2019-03-26] MEDS: CARVEDILOL 3.125 MG TAB PO SCH ×2 (05:36→17:16)
[2019-03-26] MEDS: ONDANSETRON 4 MG/2 ML VIAL IV PRN ×2 (05:46→09:18)
[2019-03-26 05:51] LABS: Albumin 3.1 g/dL (3.4-5.0); Potassium 3.8 mmol/L (3.5-5.1)
[2019-03-26 05:56] LABS: Phosphorus 8.6 mg/dL (2.5-4.9)
[2019-03-26 06:56] LABS: Rheumatoid Factor NEG (NEG)
[2019-03-26] MEDS: ARFORMOTEROL TARTRATE 15 MCG/2 ML VIAL.NEB NEB SCH ×2 (07:25→20:15)
[2019-03-26] MEDS ORDERED: PROMETHAZINE 25 MG/ML VIAL IV PRN (08:42)
[2019-03-26] MEDS: INSULIN -REGULAR HUMAN 50 UNIT/0.5 ML ML SQ SCH ×4 (09:04→20:53)
[2019-03-26] MEDS: FUROSEMIDE 40 MG/4 ML VIAL IV SCH ×2 (09:04→17:17)
[2019-03-26] MEDS: ASPIRIN EC 81 MG TAB PO SCH (09:05)
[2019-03-26] MEDS: predniSONE 20 MG TAB PO SCH ×2 (09:05→20:28)
[2019-03-26] MEDS: ENOXAPARIN 100 MG/ML SYR SQ SCH (09:05)
[2019-03-26] MEDS: SPIRONOLACTONE 25 MG TABLET PO SCH (09:05)
[2019-03-26] MEDS: CEFTRIAXONE/SWI 1gm 1 GM/10 ML SYR IV SCH (09:05)
--- NOTE | 2019-03-26 10:48 | P.PN ---
Subjective Date of Service: 03/26/19 Chief Complaint: Shortness of breath Patient seen and examined chart reviewed and case discussed with RN and Dr. Jaime. Urine output slightly better today. Patient complaining of nausea. Has been doing well off of BiPAP Review of Systems 10-point ROS is otherwise unremarkable Gastrointestinal: As per HPI Physical Examination - Vital Signs Temperature: 97.7 F Blood Pressure: 120/90 Pulse: 67 Respirations: 16 Pulse Ox (%): 97 - Physical Exam General: Alert, Oriented x3, Mild distress, Obese, Other (Ill-appearing elderly male) HEENT: Atraumatic, PERRLA, EOMI Neck: Supple Respiratory: Diminished, Crackles/rales Cardiovascular: Regular rate/rhythm, Normal S1 S2, Edema Gastrointestinal: Normal bowel sounds, Soft and benign, Non-distended, No tenderness Musculoskeletal: No tenderness Integumentary: No rashes, No erythema Neurological: Normal speech, Normal tone, Cranial nerves 3-12 intact, Normal affect - Studies Laboratory Last Values WBC 10.5 K/uL (4.3-10.9) D 03/26/19 04:36 RBC 4.95 M/uL (4.33-5.43) 03/26/19 04:36 Hgb 14.2 g/dL (13.6-17.9) 03/26/19 04:36 Hct 43.3 % (39.6-49.0) 03/26/19 04:36 MCV 87.5 fL (80-100) 03/26/19 04:36 MCH 28.8 pg (27.0-35.0) 03/26/19 04:36 MCHC 32.9 g/dL (32.0-36.0) 03/26/19 04:36 RDW 16.2 % (12.1-15.2) H 03/26/19 04:36 Plt Count 208 K/uL (152-406) 03/26/19 04:36 MPV 11.4 fL (7.6-11.3) H 03/26/19 04:36 Neutrophils % 85.6 % (41.7-73.7) H 03/26/19 04:36 Lymphocytes % 5.0 % (15.3-44.8) L 03/26/19 04:36 Monocytes % 9.2 % (3.3-12.3) 03/26/19 04:36 Eosinophils % 0.0 % (0-4.4) 03/26/19 04:36 Basophils % 0.2 % (0-1.3) 03/26/19 04:36 Absolute Neutrophils 9.0 K/uL (1.8-8.0) H 03/26/19 04:36 Segmented Neutrophils 89 % (40-80) H 03/25/19 05:14 Absolute Lymphocytes 0.5 K/uL (0.7-4.9) L 03/26/19 04:36 Lymphocytes 9 % (15-42) L 03/25/19 05:14 Monocytes 2 % (0-10) 03/25/19 05:14 Absolute Monocytes 1.0 K/uL (0.1-1.3) 03/26/19 04:36 Absolute Eosinophils 0.0 K/uL (0-0.5) 03/26/19 04:36 Absolute Basophils 0.0 K/uL (0-0.5) 03/26/19 04:36 Morphology Comment Not seen (NOT SEEN) 03/25/19 05:14 PT 16.5 SECONDS (9.5-12.5) H 03/23/19 05:38 INR 1.42 03/23/19 05:38 pH 7.39 (7.35-7.45) 03/23/19 06:02 pCO2 24.0 mmHG (35-45) L 03/23/19 06:02 pO2 93.1 mmHG (75-100) 03/23/19 06:02 HCO3 14.3 mmol/L (22-28) L 03/23/19 06:02 Base Excess -9.7 mmol/L 03/23/19 06:02 Oxyhemoglobin 94.6 % (94-97) 03/23/19 06:02 ABG O2 Sat (Measured) 96.1 % (92-98.5) 03/23/19 06:02 ABG Carboxyhemoglobin 0.9 % (0-1.5) 03/23/19 06:02 ABG Methemoglobin 0.7 % (0-1.5) 03/23/19 06:02 Other Total Hgb 14.9 g/dl (12-18) 03/23/19 06:02 Inspired O2 30.0 % 03/23/19 06:02 Sodium 134 mmol/L (136-145) L 03/26/19 04:36 Potassium 3.8 mmol/L (3.5-5.1) 03/26/19 04:36 Chloride 100 mmol/L (98-107) 03/26/19 04:36 Carbon Dioxide 20 mmol/L (21-32) L 03/26/19 04:36 BUN 120 mg/dL (7-18) H D 03/26/19 04:36 Creatinine 4.03 mg/dL (0.55-1.3) H 03/26/19 04:36 Estimated GFR 15 mL/min (=/>90) L 03/26/19 04:36 Glucose 197 mg/dL (74-106) H 03/26/19 04:36 POC Glucose 203 mg/dl (65-120) H 03/26/19 08:00 Calcium 7.6 mg/dL (8.5-10.1) L 03/26/19 04:36 Phosphorus 8.6 mg/dL (2.5-4.9) H* 03/26/19 04:36 Magnesium 3.1 mg/dL (1.8-2.4) H D 03/23/19 05:38 Total Bilirubin 1.6 mg/dL (0.2-1.0) H 03/23/19 05:38 Direct Bilirubin 0.8 mg/dL (0-0.2) H 03/23/19 05:38 AST 29 U/L (15-37) 03/23/19 05:38 ALT 28 U/L (12-78) 03/23/19 05:38 Alkaline Phosphatase 97 U/L (45-117) 03/23/19 05:38 Rapid Troponin I 1.64 ng/mL (0.0-0.045) H* 03/23/19 05:38 Troponin I 6.70 ng/mL (0.0-0.045) H* 03/24/19 00:13 NT-Pro-B Natriuret Pep 78006 pg/mL (<125) H 03/23/19 05:38 Serum Total Protein 7.2 g/dL (6.4-8.2) 03/23/19 05:38 Albumin 3.1 g/dL (3.4-5.0) L 03/26/19 04:36 Globulin 3.8 g/dL (2.3-3.5) H 03/23/19 05:38 Albumin/Globulin Ratio 0.9 (1.1-1.8) L 03/23/19 05:38 Triglycerides 95 mg/dL (<150) 03/24/19 04:50 Cholesterol 139 mg/dL (<200) 03/24/19 04:50 LDL Cholesterol, Calc 93 (<130) 03/24/19 04:50 HDL Cholesterol 27 mg/dL (40-60) L 03/24/19 04:50 Cholesterol/HDL Ratio 5.15 03/24/19 04:50 Urine Color Red 03/23/19 17:10 Urine Appearance Turbid 03/23/19 17:10 Urine pH 5.0 (5.0-7.0) 03/23/19 17:10 Ur Specific [place] 1.020 (1.005-1.030) 03/23/19 17:10 Urine Ketones Trace (NEG) 03/23/19 17:10 Urine Blood 3+ (NEG) H 03/23/19 17:10 Urine Nitrite Positive (NEG) H 03/23/19 17:10 Urine Bilirubin Negative (NEG) 03/23/19 17:10 Urine Urobilinogen 4.0 mg/dL (0.2-1.0) H 03/23/19 17:10 Ur Leukocyte Esterase 2+ (NEG) H 03/23/19 17:10 Urine RBC >50 /HPF (NONE SEEN) H 03/23/19 17:10 Urine WBC >50 /HPF (<5) H 03/23/19 17:10 Ur Squamous Epith Cells <5 /HPF (NONE SEEN) 03/23/19 17:10 Amorphous Sediment 4+ /HPF (NONE SEEN) H 03/23/19 17:10 Urine Bacteria >50 /HPF (NONE SEEN) H 03/23/19 17:10 Hyaline Casts 5-10 /LPF (NONE SEEN) 03/23/19 17:10 Fine Granular Casts >10 /LPF (NONE SEEN) 03/23/19 17:10 Urine Mucus 3+ /HPF (NONE SEEN) H 03/23/19 17:10 Urine Culture Reflexed Reflexed 03/23/19 17:10 U Random Total Protein 301 mg/dL (<11.9) H 03/23/19 17:10 Urine Creatinine 280.0 mg/dL (20-370) 03/23/19 17:10 Protein/Creatinin Ratio 1.08 ratio (<0.15) H 03/23/19 17:10 Urine Glucose Trace (NEG) 03/23/19 17:10 Urine Total Protein 2+ (NEG) H 03/23/19 17:10 Rheumatoid Factor Neg (NEG) 03/26/19 04:36 Miscellaneous Test Cancelled 03/23/19 17:10 Microbiology Data (last 24 hrs): Microbiology 03/23/19 05:45 Blood - Blood Aerobic Blood Culture - Preliminary No growth in 24 hours. 03/23/19 05:45 Blood - Blood Anaerobic Blood Culture - Preliminary No growth in 24 hours. 03/23/19 06:00 Blood - Blood Aerobic Blood Culture - Preliminary No growth in 24 hours. 03/23/19 06:00 Blood - Blood Anaerobic Blood Culture - Preliminary No growth in 24 hours. Imagings Data: EXAM DESCRIPTION: CT - Thorax Wo Con - 03/25/2019 3:03 pm CLINICAL HISTORY: sob COMPARISON: March 25, 2019 chest x-ray TECHNIQUE: Computed axial tomography of the chest was obtained. Contrast was not requested. All CT scans are performed using dose optimization technique as appropriate and may include automated exposure control or mA/KV adjustment according to patient size. FINDINGS: The evaluation of mediastinum, yvrose and vessels is limited secondary to lack of IV contrast administration. Small left and small to moderate right pleural effusions. Bibasilar atelectasis No mediastinal or hilar lymphadenopathy is seen. Cardiomegaly. 3.2 centimeter mass within the right posterior upper back unchanged from April 2018 likely benign IMPRESSION: Small to moderate right and small left pleural effusions with bibasilar atelectasis Medications List Reviewed: Yes Assessment And Plan - Plan 1. Acute respiratory failure with hypoxia. Patient has been off BiPAP since last night - currently known 2 L via nasal cannula. Secondary to CHF COPD. Appreciate pulmonology input. 2. Non ST elevation [place]. Continue with full-dose anticoagulation renally dosed. Continue chest pain guidelines. Patient needs cardiac catheterization once kidney function and improves. Echocardiogram shows apical thrombus four- chamber dilatation EF of 20-25%. 3. Acute systolic heart failure exacerbation. Will continue with CHF guidelines appreciate Dr. Cornelius's input. Monitor I/Os. Daily weight. Free fluid restriction. Chest CT personally reviewed shows bibasilar atelectasis and small effusions. Clinically improved 4. Acute COPD exacerbation. Being steroids. Continue nebulizer treatments. Improving. 5. Acute cystitis without hematuria. Patient's on Rocephin. Follow up on cultures 6. Acute on chronic kidney injury creatinine worsening. Nephrology on board. Monitor creatinine. Patient will likely require dialysis if urine output continues to fall. 7. Peripheral vascular disease. Stable 8. Hyperphosphatemia. Secondary to worsening kidney disease. 9. Obesity BMI 35 DVT prophylaxis with Lovenox Overall poor prognosis patient states he is willing to be started on dialysis if required. Continue to monitor in ICU setting
--- NOTE | 2019-03-26 11:35 | PN ---
Mr. Gonzales's renal function is getting much worse. Creatinine today is 4.03. Estimated GFR 15. His ph osphate levels very high. In general he just feels bad. Hemoglobin and hematocrit are staying good. Ideally we like to do a cardiac cath and get revascularized, but I think his renal and metabolic is sues need to be addressed before his creatinine goes up by another 0.5 g tomorrow, I think we really need to consider initiating dialysis before doing a cardiac cath. Thank you very much for your kind referral of Mr. Gonzales. Follow with you. KASANDRA/GISEL Voice ID: [id number] Report ID: [id number]
[2019-03-26] MEDS ORDERED: NITROGLYCERIN 0.4 MG/TAB SL PRN (12:42)
[2019-03-26] MEDS ORDERED: MORPHINE 4 MG/ML SYR IV PRN (13:00)
--- NOTE | 2019-03-26 15:21 | PN ---
Date of Progress Note: 03/26/2019 Subjective: Patient was admitted with coronary artery disease and stable angina, CHF exacerbation wi th acute kidney injury. Kidney function continue to decline. The patient is still nonoliguric. Physical Examination: Vital Signs: Blood pressure 113/85, pulse of 80. The patient had urine output of 875, still positiv e balance. Chest: Crackles bilateral. Heart: S1, S2. Systolic murmur. Abdomen: Soft, nontender. Extremities: Plus edema. Laboratory Data: WBC 10.5, H and H 14.2/43.3, platelets 208. Sodium 134, potassium 3.8, bicarb 20, BUN 120, creatinine 4, calcium 7.6, phosphorus 8.6, albumin 3.1. PC ratio of 1. Serology still pend ing. Current Medications: The patient on its include; 1.Aspirin. 2.Ceftriaxone. 3.Promethazine. 4.Lovenox. 5.Carvedilol 3.125 b.i.d. 6.Tylenol. 7.Lasix. 8.Prednisone. Assessment And Plan: 1.Acute kidney injury secondary to cardiorenal/poor perfusion acute tubular necrosis still over volu me. I am going to go ahead and increase diuresis to 80 mg. The patient will need to be initiated on dialysis. I had long discussion with the patient regarding the need to initiate dialysis. The fauzia ent agreed on the plan. We will proceed with PermCath placement and we will monitor the patient. 2.Hypertension. Keep utilizing blood pressure for more diuresis and ultrafiltration. 3.Unstable angina as by primary. 4.Congestive heart failure as above. LÁZARO/GISEL Voice ID: [id number] Report ID: [id number]
--- NOTE | 2019-03-26 16:41 | EKG ---
Test Date: 2019-03-26 Test Time: 12:15:28 Clinical Supervisor: ESTEBAN MEASUREMENT RESULTS: Intervals: Rate: 66 MO: QRSD: 106 QT: 408 QTc: 427 [place]: P: 56 MO: QRS: 80 T: 156 INTERPRETIVE STATEMENTS: Atrial flutter with 4:1 AV conduction Low voltage QRS Septal infarct, age undetermined ST & T wave abnormality, consider lateral ischemia Abnormal ECG Compared to ECG 03/24/2019 17:51:11 Low QRS voltage now present Ventricular premature complex(es) no longer present Myocardial infarct finding still present ST (T wave) deviation still present Electronically Signed On 03-26-19 16:40:44 CDT by Zac Jaime
--- NOTE | 2019-03-26 19:37 | CON ---
Date of Consultation: 03/23/2019 Diagnoses: Congestive heart failure, morbid obesity, hypertension. History Of Present Illness: This is the case of a 73-year-old patient, currently in the ICU, admitte d to the hospital with above diagnosis. Now also developed a renal failure, and they are requesting a hemodialysis catheter for dialysis. The patient has been observed for the last few days by the [facility] service. Today they noticed no improvement of his renal functions. Past Medical History: COPD, hypertension, congestive heart failure, with ejection fraction of 35%, n ow renal insufficiency, hypertension, morbid obesity. Family History: Hypertension. Allergies: NONE. Social History: He does not smoke. He does not drink alcohol. Medications: Reviewed. Review of Systems: Ten points otherwise unremarkable. Physical Examination: General: The patient is awake and alert. Eyes: Pupils are equal and reactive. Neck: Supple. There is a venous catheterization in the right neck region. Apparently, external jug ular. Chest: Bilateral breath sounds. Abdomen: Soft and depressible. No guarding or rebound. Extremity: No cyanosis. There was diminished dorsalis pedis pulse bilaterally. Good capillary refi ll. Laboratory Data: Blood work shows WBC count 10.5 with hemoglobin of 14 and platelets of 208. INR is 1.42. Sodium is 134, chloride is 100, glucose 197, creatinine is 4. Assessment: This is a 73-year-old patient with multiple medical problems including heart disease. Vern san is supposed to have a cardiac cath this Thursday too, but his renal function is not improving and a c atheter was requested. The patient is morbidly obese, short neck. I preferred to do this patient un philip control settings in OR, so we proposed to placement of a hemodialysis catheter, most likely, Hemo Split tunneled catheter with benefits, alternatives, and risks including, but not limited to infectio n, bleeding, damage to adjacent structures, hemothorax, pneumothorax, VA, even . He also unders tands this may not relieve his symptoms. He might need more than one surgical intervention. He just received few minutes ago an anticoagulation therapy. We are going to ask the ICU to put that on , we can proceed with catheter placement in a safer fashion. He has a risk for multiple complicatio ns that we are trying to use fluoroscopy and ultrasound for him. They understand the risk also of pn eumothorax, hemothorax, DVTs, and pericardial tamponade, and obviously VA. MATTEO/GISEL Voice ID: [id number] Report ID: [id number]
[2019-03-26] MEDS: ATORVASTATIN 80 MG TAB PO SCH (20:28)
[2019-03-26] MEDS: ZOLPIDEM TARTRATE 5 MG TABLET PO PRN (21:38)
[2019-03-27 05:32] LABS: Absolute Lymphocytes (CBC) 0.5 K/uL (0.7-4.9); Absolute Monocytes 0.8 K/uL (0.1-1.3); Absolute Neutrophil 6.5 K/uL (1.8-8.0); Basophils % 0.3 % (0-1.3); Hematocrit 44.2 % (39.6-49.0); Lymphocytes % 5.9 % (15.3-44.8); MPV 11.9 fL (7.6-11.3); Monocytes % 10.4 % (3.3-12.3); RBC Red Blood Cell Count 5.05 M/uL (4.33-5.43)
[2019-03-27] MEDS: CARVEDILOL 3.125 MG TAB PO SCH ×2 (05:35→17:38)
[2019-03-27 05:41] LABS: Albumin 2.9 g/dL (3.4-5.0); Phosphorus 8.4 mg/dL (2.5-4.9)
[2019-03-27] MEDS: INSULIN -REGULAR HUMAN 50 UNIT/0.5 ML ML SQ SCH ×4 (07:30→22:31)
[2019-03-27] MEDS: ARFORMOTEROL TARTRATE 15 MCG/2 ML VIAL.NEB NEB SCH ×2 (08:24→20:30)
[2019-03-27] MEDS: FUROSEMIDE 40 MG/4 ML VIAL IV SCH ×2 (08:32→17:38)
[2019-03-27] MEDS: CEFTRIAXONE/SWI 1gm 1 GM/10 ML SYR IV SCH (08:33)
[2019-03-27] MEDS: predniSONE 20 MG TAB PO SCH ×2 (08:34→21:58)
[2019-03-27] MEDS: ASPIRIN EC 81 MG TAB PO SCH (08:34)
[2019-03-27] MEDS ORDERED: NA CHLORIDE 0.9% 500 ML ONE (09:32)
[2019-03-27] MEDS ORDERED: NA CHLORIDE 0.9% 100 ML IV ONE (09:35)
[2019-03-27] MEDS ORDERED: LIDOCAINE 1% 20 ML MDV ONE (09:35)
[2019-03-27] MEDS ORDERED: NS 0.9% VIAL 10 ML ONE (09:50)
[2019-03-27] MEDS ORDERED: EPINEPHRINE/PF 1 MG/ML AMP ONE (10:14)
[2019-03-27] MEDS ORDERED: PROPOFOL 200 MG/20 ML VIAL IV ONE (10:14)
[2019-03-27] MEDS ORDERED: LIDOCAINE 2% MPF 5 ML VIAL ONE (10:14)
[2019-03-27] MEDS ORDERED: Phenylephrine HCl 10 MG/ML 1 ML VIAL ONE (10:18)
[2019-03-27] MEDS ORDERED: NA CHLORIDE 0.9% 250 ML ONE (10:24)
[2019-03-27] MEDS: HEPARIN 5000 UNIT/ML 1 ML VIAL ONE ×2 (10:55→10:56)
--- NOTE | 2019-03-27 11:06 | P.PN ---
Subjective Date of Service: 03/27/19 Chief Complaint: Shortness of breath Patient seen and examined chart reviewed and case discussed with RN. The episode of chest pain yesterday improved with nitro. Urine output significantly better today. Uses BiPAP for comfort Review of Systems 10-point ROS is otherwise unremarkable Physical Examination - Vital Signs Temperature: 97.4 F Blood Pressure: 115/95 Pulse: 66 Respirations: 16 Pulse Ox (%): 99 - Physical Exam General: Alert, In no apparent distress, Oriented x3, Obese, Other (Elderly Ill- appearing male) HEENT: Atraumatic, PERRLA, EOMI Neck: Supple Respiratory: Diminished, Crackles/rales Cardiovascular: Normal S1 S2, Edema, Irregular heart rate/rhythm Gastrointestinal: Normal bowel sounds, Soft and benign, Non-distended, No tenderness Musculoskeletal: No tenderness Integumentary: No rashes, No erythema Neurological: Normal speech, Normal tone, Normal affect - Studies Laboratory Last Values WBC 7.8 K/uL (4.3-10.9) D 03/27/19 04:50 RBC 5.05 M/uL (4.33-5.43) 03/27/19 04:50 Hgb 14.5 g/dL (13.6-17.9) 03/27/19 04:50 Hct 44.2 % (39.6-49.0) 03/27/19 04:50 MCV 87.4 fL (80-100) 03/27/19 04:50 MCH 28.7 pg (27.0-35.0) 03/27/19 04:50 MCHC 32.8 g/dL (32.0-36.0) 03/27/19 04:50 RDW 16.2 % (12.1-15.2) H 03/27/19 04:50 Plt Count 178 K/uL (152-406) 03/27/19 04:50 MPV 11.9 fL (7.6-11.3) H 03/27/19 04:50 Neutrophils % 83.4 % (41.7-73.7) H 03/27/19 04:50 Lymphocytes % 5.9 % (15.3-44.8) L 03/27/19 04:50 Monocytes % 10.4 % (3.3-12.3) 03/27/19 04:50 Eosinophils % 0.0 % (0-4.4) 03/27/19 04:50 Basophils % 0.3 % (0-1.3) 03/27/19 04:50 Absolute Neutrophils 6.5 K/uL (1.8-8.0) 03/27/19 04:50 Segmented Neutrophils 89 % (40-80) H 03/25/19 05:14 Absolute Lymphocytes 0.5 K/uL (0.7-4.9) L 03/27/19 04:50 Lymphocytes 9 % (15-42) L 03/25/19 05:14 Monocytes 2 % (0-10) 03/25/19 05:14 Absolute Monocytes 0.8 K/uL (0.1-1.3) 03/27/19 04:50 Absolute Eosinophils 0.0 K/uL (0-0.5) 03/27/19 04:50 Absolute Basophils 0.0 K/uL (0-0.5) 03/27/19 04:50 Morphology Comment Not seen (NOT SEEN) 03/25/19 05:14 PT 16.5 SECONDS (9.5-12.5) H 03/23/19 05:38 INR 1.42 03/23/19 05:38 pH 7.39 (7.35-7.45) 03/23/19 06:02 pCO2 24.0 mmHG (35-45) L 03/23/19 06:02 pO2 93.1 mmHG (75-100) 03/23/19 06:02 HCO3 14.3 mmol/L (22-28) L 03/23/19 06:02 Base Excess -9.7 mmol/L 03/23/19 06:02 Oxyhemoglobin 94.6 % (94-97) 03/23/19 06:02 ABG O2 Sat (Measured) 96.1 % (92-98.5) 03/23/19 06:02 ABG Carboxyhemoglobin 0.9 % (0-1.5) 03/23/19 06:02 ABG Methemoglobin 0.7 % (0-1.5) 03/23/19 06:02 Other Total Hgb 14.9 g/dl (12-18) 03/23/19 06:02 Inspired O2 30.0 % 03/23/19 06:02 Sodium 136 mmol/L (136-145) 03/27/19 04:50 Potassium 4.0 mmol/L (3.5-5.1) 03/27/19 04:50 Chloride 99 mmol/L (98-107) 03/27/19 04:50 Carbon Dioxide 22 mmol/L (21-32) 03/27/19 04:50 BUN 120 mg/dL (7-18) H 03/27/19 04:50 Creatinine 3.74 mg/dL (0.55-1.3) H 03/27/19 04:50 Estimated GFR 16 mL/min (=/>90) L 03/27/19 04:50 Glucose 208 mg/dL (74-106) H 03/27/19 04:50 POC Glucose 189 mg/dl (65-120) H 03/27/19 07:43 Calcium 7.7 mg/dL (8.5-10.1) L 03/27/19 04:50 Phosphorus 8.4 mg/dL (2.5-4.9) H 03/27/19 04:50 Magnesium 3.1 mg/dL (1.8-2.4) H D 03/23/19 05:38 Total Bilirubin 1.6 mg/dL (0.2-1.0) H 03/23/19 05:38 Direct Bilirubin 0.8 mg/dL (0-0.2) H 03/23/19 05:38 AST 29 U/L (15-37) 03/23/19 05:38 ALT 28 U/L (12-78) 03/23/19 05:38 Alkaline Phosphatase 97 U/L (45-117) 03/23/19 05:38 Rapid Troponin I 1.64 ng/mL (0.0-0.045) H* 03/23/19 05:38 Troponin I 6.70 ng/mL (0.0-0.045) H* 03/24/19 00:13 NT-Pro-B Natriuret Pep 31535 pg/mL (<125) H 03/23/19 05:38 Serum Total Protein 7.2 g/dL (6.4-8.2) 03/23/19 05:38 Albumin 2.9 g/dL (3.4-5.0) L 03/27/19 04:50 Globulin 3.8 g/dL (2.3-3.5) H 03/23/19 05:38 Albumin/Globulin Ratio 0.9 (1.1-1.8) L 03/23/19 05:38 Triglycerides 95 mg/dL (<150) 03/24/19 04:50 Cholesterol 139 mg/dL (<200) 03/24/19 04:50 LDL Cholesterol, Calc 93 (<130) 03/24/19 04:50 HDL Cholesterol 27 mg/dL (40-60) L 03/24/19 04:50 Cholesterol/HDL Ratio 5.15 03/24/19 04:50 Urine Color Red 03/23/19 17:10 Urine Appearance Turbid 03/23/19 17:10 Urine pH 5.0 (5.0-7.0) 03/23/19 17:10 Ur Specific [place] 1.020 (1.005-1.030) 03/23/19 17:10 Urine Ketones Trace (NEG) 03/23/19 17:10 Urine Blood 3+ (NEG) H 03/23/19 17:10 Urine Nitrite Positive (NEG) H 03/23/19 17:10 Urine Bilirubin Negative (NEG) 03/23/19 17:10 Urine Urobilinogen 4.0 mg/dL (0.2-1.0) H 03/23/19 17:10 Ur Leukocyte Esterase 2+ (NEG) H 03/23/19 17:10 Urine RBC >50 /HPF (NONE SEEN) H 03/23/19 17:10 Urine WBC >50 /HPF (<5) H 03/23/19 17:10 Ur Squamous Epith Cells <5 /HPF (NONE SEEN) 03/23/19 17:10 Amorphous Sediment 4+ /HPF (NONE SEEN) H 03/23/19 17:10 Urine Bacteria >50 /HPF (NONE SEEN) H 03/23/19 17:10 Hyaline Casts 5-10 /LPF (NONE SEEN) 03/23/19 17:10 Fine Granular Casts >10 /LPF (NONE SEEN) 03/23/19 17:10 Urine Mucus 3+ /HPF (NONE SEEN) H 03/23/19 17:10 Urine Culture Reflexed Reflexed 03/23/19 17:10 U Random Total Protein 301 mg/dL (<11.9) H 03/23/19 17:10 Urine Creatinine 280.0 mg/dL (20-370) 03/23/19 17:10 Protein/Creatinin Ratio 1.08 ratio (<0.15) H 03/23/19 17:10 Urine Glucose Trace (NEG) 03/23/19 17:10 Urine Total Protein 2+ (NEG) H 03/23/19 17:10 Rheumatoid Factor Neg (NEG) 03/26/19 04:36 HIV 1&2 Antibody Rapid Cancelled 03/27/19 04:50 Miscellaneous Test Cancelled 03/23/19 17:10 Microbiology Data (last 24 hrs): Microbiology 03/23/19 05:45 Blood - Blood Aerobic Blood Culture - Preliminary No growth in 24 hours. 03/23/19 05:45 Blood - Blood Anaerobic Blood Culture - Preliminary No growth in 24 hours. 03/23/19 06:00 Blood - Blood Aerobic Blood Culture - Preliminary No growth in 24 hours. 03/23/19 06:00 Blood - Blood Anaerobic Blood Culture - Preliminary No growth in 24 hours. Medications List Reviewed: Yes Assessment And Plan - Plan 1. Acute respiratory failure with hypoxia. Patient has been doing well on 2 L via nasal cannula. Secondary to CHF COPD. Appreciate pulmonology input. 2. Non ST elevation [place]. Continue with full-dose anticoagulation renally dosed. Continue chest pain guidelines. Patient needs cardiac catheterization once kidney function improves. Echocardiogram shows apical thrombus four- chamber dilatation EF of 20-25%. Patient continues to have episodic chest pain requiring nitro 3. Acute systolic heart failure exacerbation. Will continue with CHF guidelines appreciate Dr. Jaime's input. Monitor I/Os. Daily weight. Free fluid restriction. Chest CT personally reviewed shows bibasilar atelectasis and small effusions. Clinically improved 4. Acute COPD exacerbation. wean steroids. Continue nebulizer treatments. Improving. 5. Acute cystitis without hematuria. Patient's on Rocephin. Follow up on cultures 6. Acute on chronic kidney injury creatinine now improving. Nephrology on board. Monitor creatinine. Patient for dialysis catheter placement today 7. Peripheral vascular disease. Stable 8. Hyperphosphatemia. Secondary to worsening kidney disease. Monitor 9. Obesity BMI 33.9 DVT prophylaxis with Lovenox Overall poor prognosis Continue to monitor in ICU setting Anticipate heart catheterization as patient continues to have episodic chest pain requiring treatment.
[2019-03-27] MEDS: ONDANSETRON 4 MG/2 ML VIAL IV PRN (12:00)
--- NOTE | 2019-03-27 12:06 | RAD REPORT ---
EXAM DESCRIPTION: RAD - Fluoroscopy <1 Hour - 03/27/2019 11:45 am CLINICAL HISTORY: Device placement central venous catheter placement FINDINGS: A central venous catheter was placed into the superior vena cava. Seven fluoroscopic spot images fluoroscopic spot images are submitted. The examination was performed by Dr. Rosas Fluoroscopy time 0.4 minute
--- NOTE | 2019-03-27 12:07 | RAD REPORT ---
EXAM DESCRIPTION: Valarie Single View03/27/2019 11:42 am CLINICAL HISTORY: Device placement/central venous catheter placement COMPARISON: none FINDINGS: Tips of a central venous catheter lie within the superior vena cava. A pneumothorax is not present. Pleural effusions persist. Heart remains enlarged. Bibasilar atelectasis. Mild pulmonary edema may be present IMPRESSION: Central venous catheter with its tips in the superior vena cava
[2019-03-27] MEDS ORDERED: ONDANSETRON HCL 40 MG/20 ML VIAL ONE (12:14)
--- NOTE | 2019-03-27 16:44 | PN ---
Mr. Gonzales continues to look reasonably comfortable. Vital signs stable. Remains in AFib. His ejectio n fraction is in the 20s. He has an LV thrombus. He has a totally occluded aorta, needs a cardiac c ath. He is getting dialysis catheter placed. We will get dialysis later today and I have recommende d that we do not even attempt to do the cardiac cath here, but send him to a [facility] whe re they can consider doing a bypass surgery and cardiac cath up there. He is clearly a patient with severe 3-vessel disease, worse than it was in 2017 when we recommended bypass surgery the 1st time, t he surgery that was never done and if it can be arranged, he should be transferred to a tertiary care medical center for a cardiac cath and possible revascularization. KASANDRA/GISEL Voice ID: [id number] Report ID: [id number]
[2019-03-27] MEDS: SEVELAMER CARBONATE 800 MG TABLET PO SCH (17:00)
[2019-03-27] MEDS ORDERED: NA CHLORIDE 0.9% 1,000 ML IV PRN (17:52)
[2019-03-27] MEDS ORDERED: MANNITOL 25% 12.5 GM/50 ML VIAL IV PRN (17:52)
[2019-03-27] MEDS ORDERED: BISACODYL 10 MG RECTAL SUPP PR PRN (17:54)
[2019-03-27] MEDS ORDERED: ALBUMIN HUMAN 25% 50 ML IV SCH (18:00)
--- NOTE | 2019-03-27 18:08 | PN ---
Date of Progress Note: 03/27/2019 Subjective: The patient, status post PermCath placement by Dr. Rosas. I really appreciate the as sistant. The patient still complaining of shortness of breath, yesterday, we started the patient on diuresis. The patient had good urine output. Objective: Vital Signs: When I saw, the patient's blood pressure 120/68, pulse of 81. The patient had urine output of 1700. Chest: Crackles, bilateral. Heart: S1, S2. Systolic murmur. Abdomen: Soft, nontender. Extremities: Trace edema. Neuro: Alert and oriented x3. Laboratory Data: WBC 7.8, H and H 14.5/44.2, platelets 178. Sodium 136, potassium 4, bicarb 22, BUN 120, creatinine 3.7, glucose 200, calcium 7.7, phosphorus 8.4. Current Medications: The patient on its include: 1.Aspirin. 2.Ceftriaxone. 3.Lovenox. 4.Carvedilol 3.125 b.i.d. 5.Nitroglycerin drip. 6.Lasix 80 b.i.d. 7.Breathing treatment. 8.Zofran. 9.Prednisone. Assessment And Plan: 1.Acute kidney injury secondary to poor perfusion. 2.Acute tubular necrosis, cardiorenal, nonoliguric, over volume. I am going to continue diuresis. We will initiate dialysis tomorrow. 3.Hypertension. We will utilize blood pressure for more diuresis. 4.Anemia, stable. 5.Secondary hyperparathyroidism. I am going to go ahead and start the patient on Renvela. We will send for PTH. 6.Coronary artery disease with congestive heart failure. We will follow up with Cardiology. I had discussion with Dr. Jaime. Dr. Jaime preferred to transfer the patient to a vascular surgeon. Reg ardless of the results of the cardiac cath, we will proceed with the transfer. 7.Urinary tract infection secondary to Enterococcus faecalis sensitive to all antibiotic. We will c ontinue and we will monitor. LÁZARO/GISEL Voice ID: [id number] Report ID: [id number]
[2019-03-27] MEDS: POLYETHYL GLY 3350 17 GM/DOSE PO PRN (18:22)
[2019-03-27] MEDS: ATORVASTATIN 80 MG TAB PO SCH (21:58)
[2019-03-27] MEDS: DOCUSATE NA 100 MG CAP PO SCH (21:58)
--- NOTE | 2019-03-28 01:24 | OP ---
Date of Procedure: 03/27/2019 Surgeon: Jorge A Rosas MD Preoperative Diagnoses: Renal failure. Cardiac disease. Morbid obesity. Postoperative Diagnoses: Renal failure. Cardiac disease. Morbid obesity. Procedures: 1.Placement of a HemoSplit hemodialysis catheter. 2.Interpretation of fluoroscopy. 3.Right neck ultrasound for line placement. Anesthesia: General plus local. Implant: HemoSplit hemodialysis catheter on the right internal jugular vein. Indications: This is the case of a 73-year-old patient who comes to us with renal failure. They wan t catheter placed in. High risk patient, a low ejection fraction, still needs the dialysis catheter placement, morbidly obese, difficult access, so we brought into the OR in case we needed help of fluo roscopy and ultrasound. The benefits, alternatives, and risks of a tunneled hemodialysis catheter pl acement fully explained, which include but not limited to infection, bleeding, damage to adjacent str uctures, anesthesia complication, pneumothorax, hemothorax, pericardial tamponade, DVTs, pulmonary em boli, HI, even . He also understands this may not relieve his symptoms. He might need more fab n one surgical intervention. He and his spiritual care coordinator understand this is a temporary measure. If he con tinues with dialysis, that catheter needs to be removed because it is temporary and place a more perm anent solution. He signed a consent. Description Of Procedure: The patient was brought to the operating room, placed in supine position. Anesthesia was done without complication. The right chest and neck area were prepped and draped in a sterile fashion. An external jugular catheter that the patient had in that area was completely rem milan. This was just a tiny catheter for IV access for the floor. At that moment, I proceeded to pre p and drape the area once again in usual sterile fashion. We used the right neck ultrasound to local ize the vein, it is compressible. At that moment, we placed the patient in Trendelenburg position an d placed an 18-gauge needle in the internal jugular vein at the first attempt. Guidewire was passed through, got into the superior vena cava using fluoroscopy. A small incision was made in the right u pper chest, and we tunneled the catheter to that area into the new incision in the right upper chest. We put dilators through the guidewire under direct visualization of fluoroscopy. Last one was an i ntroducer, and then guidewire was removed, catheter was placed, and introducer was peeled off. We us ed fluoroscopy once again to check the proper position. Excellent backflow and inflow. The area was closed with 3-0 chromic. The catheter was secured in place with 3-0 nylon and covered with sterile dressings. The patient brought back to normal position. The patient tolerated the procedure well. The patient was sent to Recovery in stable condition. A chest x-ray will be ordered stat. MATTEO/GISEL Voice ID: [id number] Report ID: [id number]
[2019-03-28] MEDS: CARVEDILOL 3.125 MG TAB PO SCH ×2 (05:50→16:59)
[2019-03-28 05:58] LABS: Absolute Lymphocytes (CBC) 0.4 K/uL (0.7-4.9); Absolute Monocytes 1.2 K/uL (0.1-1.3); Absolute Neutrophil 6.7 K/uL (1.8-8.0); Basophils % 0.1 % (0-1.3); Hematocrit 44.8 % (39.6-49.0); MPV 12.3 fL (7.6-11.3); Monocytes % 14.3 % (3.3-12.3); RBC Red Blood Cell Count 5.12 M/uL (4.33-5.43)
[2019-03-28 06:11] LABS: Phosphorus 5.6 mg/dL (2.5-4.9); Potassium 3.9 mmol/L (3.5-5.1)
[2019-03-28] MEDS: INSULIN -REGULAR HUMAN 50 UNIT/0.5 ML ML SQ SCH ×4 (07:30→22:35)
[2019-03-28] MEDS: FUROSEMIDE 40 MG/4 ML VIAL IV SCH ×2 (08:02→16:59)
[2019-03-28] MEDS: predniSONE 20 MG TAB PO SCH ×2 (08:03→22:35)
[2019-03-28] MEDS: ASPIRIN EC 81 MG TAB PO SCH (08:03)
[2019-03-28] MEDS: DOCUSATE NA 100 MG CAP PO SCH ×2 (08:03→22:30)
[2019-03-28] MEDS: SEVELAMER CARBONATE 800 MG TABLET PO SCH ×3 (08:03→17:00)
[2019-03-28] MEDS: ARFORMOTEROL TARTRATE 15 MCG/2 ML VIAL.NEB NEB SCH ×2 (08:15→20:00)
[2019-03-28] MEDS: CEFTRIAXONE/SWI 1gm 1 GM/10 ML SYR IV SCH (08:19)
--- NOTE | 2019-03-28 09:27 | P.PN ---
Subjective Date of Service: 03/28/19 Chief Complaint: Shortness of breath Patient seen and examined chart reviewed and case discussed with RN, Dr. Jaime and Dr. Hernandez. Patient is awaiting transfer to [facility]. No chest pain overnight. Dialysis cancelled today due to improvement in kidney function Review of Systems 10-point ROS is otherwise unremarkable Physical Examination - Vital Signs Temperature: 98.4 F Blood Pressure: 115/102 Pulse: 68 Respirations: 15 Pulse Ox (%): 100 - Physical Exam General: Alert, In no apparent distress, Oriented x3, Obese, Other (older than stated age) HEENT: Atraumatic, PERRLA, EOMI Neck: Supple, JVD not distended Respiratory: Diminished, Dull Cardiovascular: Normal S1 S2, Edema, Abnormal pulses, Irregular heart rate/ rhythm Gastrointestinal: Normal bowel sounds, Soft and benign, Non-distended, No tenderness Musculoskeletal: No tenderness Integumentary: No rashes Neurological: Normal speech, Normal tone, Normal affect - Studies Laboratory Last Values WBC 8.3 K/uL (4.3-10.9) 03/28/19 05:33 RBC 5.12 M/uL (4.33-5.43) 03/28/19 05:33 Hgb 14.6 g/dL (13.6-17.9) 03/28/19 05:33 Hct 44.8 % (39.6-49.0) 03/28/19 05:33 MCV 87.5 fL (80-100) 03/28/19 05:33 MCH 28.6 pg (27.0-35.0) 03/28/19 05:33 MCHC 32.7 g/dL (32.0-36.0) 03/28/19 05:33 RDW 16.4 % (12.1-15.2) H 03/28/19 05:33 Plt Count 170 K/uL (152-406) 03/28/19 05:33 MPV 12.3 fL (7.6-11.3) H 03/28/19 05:33 Neutrophils % 80.6 % (41.7-73.7) H 03/28/19 05:33 Lymphocytes % 5.0 % (15.3-44.8) L 03/28/19 05:33 Monocytes % 14.3 % (3.3-12.3) H 03/28/19 05:33 Eosinophils % 0.0 % (0-4.4) 03/28/19 05:33 Basophils % 0.1 % (0-1.3) 03/28/19 05:33 Absolute Neutrophils 6.7 K/uL (1.8-8.0) 03/28/19 05:33 Segmented Neutrophils 89 % (40-80) H 03/25/19 05:14 Absolute Lymphocytes 0.4 K/uL (0.7-4.9) L 03/28/19 05:33 Lymphocytes 9 % (15-42) L 03/25/19 05:14 Monocytes 2 % (0-10) 03/25/19 05:14 Absolute Monocytes 1.2 K/uL (0.1-1.3) 03/28/19 05:33 Absolute Eosinophils 0.0 K/uL (0-0.5) 03/28/19 05:33 Absolute Basophils 0.0 K/uL (0-0.5) 03/28/19 05:33 Morphology Comment Not seen (NOT SEEN) 03/25/19 05:14 PT 16.5 SECONDS (9.5-12.5) H 03/23/19 05:38 INR 1.42 03/23/19 05:38 pH 7.39 (7.35-7.45) 03/23/19 06:02 pCO2 24.0 mmHG (35-45) L 03/23/19 06:02 pO2 93.1 mmHG (75-100) 03/23/19 06:02 HCO3 14.3 mmol/L (22-28) L 03/23/19 06:02 Base Excess -9.7 mmol/L 03/23/19 06:02 Oxyhemoglobin 94.6 % (94-97) 03/23/19 06:02 ABG O2 Sat (Measured) 96.1 % (92-98.5) 03/23/19 06:02 ABG Carboxyhemoglobin 0.9 % (0-1.5) 03/23/19 06:02 ABG Methemoglobin 0.7 % (0-1.5) 03/23/19 06:02 Other Total Hgb 14.9 g/dl (12-18) 03/23/19 06:02 Inspired O2 30.0 % 03/23/19 06:02 Sodium 139 mmol/L (136-145) 03/28/19 05:33 Potassium 3.9 mmol/L (3.5-5.1) 03/28/19 05:33 Chloride 102 mmol/L (98-107) 03/28/19 05:33 Carbon Dioxide 28 mmol/L (21-32) 03/28/19 05:33 BUN 106 mg/dL (7-18) H 03/28/19 05:33 Creatinine 2.82 mg/dL (0.55-1.3) H 03/28/19 05:33 Estimated GFR 22 mL/min (=/>90) L 03/28/19 05:33 Glucose 165 mg/dL (74-106) H 03/28/19 05:33 POC Glucose 186 mg/dl (65-120) H 03/28/19 07:41 Calcium 7.7 mg/dL (8.5-10.1) L 03/28/19 05:33 Phosphorus 5.6 mg/dL (2.5-4.9) H 03/28/19 05:33 Magnesium 3.1 mg/dL (1.8-2.4) H D 03/23/19 05:38 Total Bilirubin 1.6 mg/dL (0.2-1.0) H 03/23/19 05:38 Direct Bilirubin 0.8 mg/dL (0-0.2) H 03/23/19 05:38 AST 29 U/L (15-37) 03/23/19 05:38 ALT 28 U/L (12-78) 03/23/19 05:38 Alkaline Phosphatase 97 U/L (45-117) 03/23/19 05:38 Rapid Troponin I 1.64 ng/mL (0.0-0.045) H* 03/23/19 05:38 Troponin I 6.70 ng/mL (0.0-0.045) H* 03/24/19 00:13 NT-Pro-B Natriuret Pep 82624 pg/mL (<125) H 03/23/19 05:38 Serum Total Protein 7.2 g/dL (6.4-8.2) 03/23/19 05:38 Albumin 3.0 g/dL (3.4-5.0) L 03/28/19 05:33 Globulin 3.8 g/dL (2.3-3.5) H 03/23/19 05:38 Albumin/Globulin Ratio 0.9 (1.1-1.8) L 03/23/19 05:38 Triglycerides 95 mg/dL (<150) 03/24/19 04:50 Cholesterol 139 mg/dL (<200) 03/24/19 04:50 LDL Cholesterol, Calc 93 (<130) 03/24/19 04:50 HDL Cholesterol 27 mg/dL (40-60) L 03/24/19 04:50 Cholesterol/HDL Ratio 5.15 03/24/19 04:50 PTH Intact 550.4 pg/mL (18.4-80.1) H 03/28/19 05:33 Urine Color Red 03/23/19 17:10 Urine Appearance Turbid 03/23/19 17:10 Urine pH 5.0 (5.0-7.0) 03/23/19 17:10 Ur Specific [place] 1.020 (1.005-1.030) 03/23/19 17:10 Urine Ketones Trace (NEG) 03/23/19 17:10 Urine Blood 3+ (NEG) H 03/23/19 17:10 Urine Nitrite Positive (NEG) H 03/23/19 17:10 Urine Bilirubin Negative (NEG) 03/23/19 17:10 Urine Urobilinogen 4.0 mg/dL (0.2-1.0) H 03/23/19 17:10 Ur Leukocyte Esterase 2+ (NEG) H 03/23/19 17:10 Urine RBC >50 /HPF (NONE SEEN) H 03/23/19 17:10 Urine WBC >50 /HPF (<5) H 03/23/19 17:10 Ur Squamous Epith Cells <5 /HPF (NONE SEEN) 03/23/19 17:10 Amorphous Sediment 4+ /HPF (NONE SEEN) H 03/23/19 17:10 Urine Bacteria >50 /HPF (NONE SEEN) H 03/23/19 17:10 Hyaline Casts 5-10 /LPF (NONE SEEN) 03/23/19 17:10 Fine Granular Casts >10 /LPF (NONE SEEN) 03/23/19 17:10 Urine Mucus 3+ /HPF (NONE SEEN) H 03/23/19 17:10 Urine Culture Reflexed Reflexed 03/23/19 17:10 U Random Total Protein 301 mg/dL (<11.9) H 03/23/19 17:10 Urine Creatinine 280.0 mg/dL (20-370) 03/23/19 17:10 Protein/Creatinin Ratio 1.08 ratio (<0.15) H 03/23/19 17:10 Urine Glucose Trace (NEG) 03/23/19 17:10 Urine Total Protein 2+ (NEG) H 03/23/19 17:10 Rheumatoid Factor Neg (NEG) 03/26/19 04:36 HIV 1&2 Antibody Rapid Cancelled 03/27/19 04:50 Miscellaneous Test Cancelled 03/23/19 17:10 Microbiology Data (last 24 hrs): 03/23/19 05:45 Blood - Blood Aerobic Blood Culture - Final No growth in 5 days. 03/23/19 05:45 Blood - Blood Anaerobic Blood Culture - Final No growth in 5 days. 03/23/19 06:00 Blood - Blood Aerobic Blood Culture - Final No growth in 5 days. 03/23/19 06:00 Blood - Blood Anaerobic Blood Culture - Final No growth in 5 days. Medications List Reviewed: Yes Assessment And Plan - Plan 1. Acute respiratory failure with hypoxia. Patient has been doing well on 2 L via nasal cannula. Secondary to CHF COPD. Appreciate pulmonology input. 2. Non ST elevation [place]. Continue with full-dose anticoagulation renally dosed. Continue chest pain guidelines. Patient needs cardiac catheterization once kidney function improves. Echocardiogram shows apical thrombus four- chamber dilatation EF of 20-25%. Patient continues to have episodic chest pain requiring nitro. Cardiology recommends transfer to [facility]. 3. Acute systolic heart failure exacerbation. Will continue with CHF guidelines appreciate Dr. Jaime's input. Monitor I/Os. Daily weight. Free fluid restriction. Chest CT personally reviewed shows bibasilar atelectasis and small effusions. Clinically improved 4. Acute COPD exacerbation. wean steroids. Continue nebulizer treatments. Improving. 5. Acute cystitis without hematuria. Patient's on Rocephin. Follow up on cultures 6. Acute on chronic kidney injury creatinine now improving. Nephrology on board. Monitor creatinine. Dialysis catheter placed. Dialysis held today as kidney function improved. 7. Peripheral vascular disease. Stable 8. Hyperphosphatemia. Secondary to worsening kidney disease. Monitor 9. Obesity BMI 33.9 DVT prophylaxis with Lovenox Overall poor prognosis Continue to monitor in ICU setting Cardiology recommends transfer to [facility] for CABG Discharge Plan: Transfer
--- NOTE | 2019-03-28 11:51 | PN ---
The patient remains very dyspneic. He has severe heart failure. For him to get better he will need cardiac cath, almost certainly dialysis after that and almost certainly bypass surgery and aortic rec onstruction. His aorta is totally occluded. For these reasons, I have recommended transfer to a hig her level of care that is being arranged although the bed is not yet available. If he is still here on Thursday, we will proceed with a cardiac cath and try and get a surgeon to take him if he indeed does need bypass surgery. KASANDRA/GISEL Voice ID: [id number] Report ID: [id number]
[2019-03-28] MEDS: ZOLPIDEM TARTRATE 5 MG TABLET PO PRN (22:30)
[2019-03-28] MEDS: ATORVASTATIN 80 MG TAB PO SCH (22:34)
--- NOTE | 2019-03-29 02:04 | PN ---
Date of Progress Note: 03/28/2019 Chief Complaint: Acute kidney injury. History Of Present Illness: Acute kidney injury moderately severe, nonoliguric, secondary to cardior enal syndrome related to renal hypoperfusion, complicated by acute tubular necrosis. The patient has associated hypervolemia and fluid overload with peripheral edema and CHF exacerbation. The patient is treated with diuretics and is on Lasix 80 mg. Renal function has declined. The patient has severe hyperazotemia. BUN was up to 120 and creatinine 4.0. Today, BUN is 106 and creatinine is 2.82. Creatinine somewhat improved over the last 48 hours , although the BUN remains elevated. Electrolytes as follows; sodium 139, potassium 3.9, chloride 10 2, CO2 28, calcium 7.7, and phosphorus 5.6. The patient remains fluid overloaded. The patient is scheduled today to have dialysis catheter and procedure was done by Dr. Rosas. Review of Systems: The patient denies PND, orthopnea. The patient denies complaining of some generalized weakness. Den ies chest pain. Physical Examination: Vital Signs: Blood pressure is 115/72, heart rate 68, respiratory rate 15, SpO2 100%. Eyes: Anicteric sclerae. EOMI. Ears, Nose, Mouth and Throat: Oral mucosa moist. No pallor. Neck: Supple. No JVD or bruits. Lungs: Crackles bilaterally present. Heart: S1, S2. Abdomen: Soft, benign. Extremities: Edema present in both legs. Impression And Plan: 1.Acute kidney injury. Creatinine level is somewhat improving, although there is persistent hyperaz otemia. BUN is over 100. The patient will start dialysis. The patient is undergoing cardiac workup and will need bypass surgery and aortic reconstruction. Most likely the patient will remain dialysi s dependent. The patient will need a cardiac catheterization in near future prior to the surgery. D ialysis catheter was done today to start dialysis. The patient will start dialysis tomorrow. 2.Hyperphosphatemia. Monitor phosphorus level. Continue low-phosphorus diet. 3.Cardiorenal syndrome, congestive heart failure, fluid overload. Continue low-sodium diet and adva nce ultrafiltration with dialysis to control fluid overload. 4.Acute tubular necrosis with cardiorenal syndrome, nonoliguric, although there is persistent hypera zotemia and renal function is not improving significantly. 5.Secondary hyperparathyroidism. In fact, PTH is pending. The patient will continue Renvela. EB/MODL Voice ID: [id number] Report ID: [id number]
[2019-03-29 02:39] LABS: HBsAG Nonreactive (Nonreactive)
[2019-03-29 05:33] LABS: Absolute Lymphocytes (CBC) 0.4 K/uL (0.7-4.9); Absolute Monocytes 1.2 K/uL (0.1-1.3); Absolute Neutrophil 8.7 K/uL (1.8-8.0); Basophils % 0.1 % (0-1.3); Hematocrit 44.5 % (39.6-49.0); Lymphocytes % 3.5 % (15.3-44.8); MPV 11.5 fL (7.6-11.3); Monocytes % 11.3 % (3.3-12.3); RBC Red Blood Cell Count 5.12 M/uL (4.33-5.43)
[2019-03-29] MEDS: CARVEDILOL 3.125 MG TAB PO SCH ×2 (05:57→18:03)
[2019-03-29 07:16] LABS: Platelet Estimate ADEQ
[2019-03-29 07:17] LABS: Blood Morphology Comment NOT SEEN (NOT SEEN)
[2019-03-29] MEDS: INSULIN -REGULAR HUMAN 50 UNIT/0.5 ML ML SQ SCH ×4 (07:30→20:39)
[2019-03-29] MEDS: ARFORMOTEROL TARTRATE 15 MCG/2 ML VIAL.NEB NEB SCH ×2 (08:06→20:00)
[2019-03-29] MEDS: FUROSEMIDE 40 MG/4 ML VIAL IV SCH ×2 (09:19→18:02)
[2019-03-29] MEDS: ASPIRIN EC 81 MG TAB PO SCH (09:19)
[2019-03-29] MEDS: SEVELAMER CARBONATE 800 MG TABLET PO SCH ×4 (09:19→17:00)
[2019-03-29] MEDS: CEFTRIAXONE/SWI 1gm 1 GM/10 ML SYR IV SCH (09:19)
[2019-03-29] MEDS: DOCUSATE NA 100 MG CAP PO SCH ×2 (09:19→20:39)
[2019-03-29] MEDS: ENOXAPARIN 100 MG/ML SYR SQ SCH (09:20)
[2019-03-29] MEDS: predniSONE 20 MG TAB PO SCH ×2 (09:20→20:38)
[2019-03-29 10:17] LABS: P-ANCA Anti-Myeloperoxidase Ab <1.0 AI (<1.0)
[2019-03-29 10:54] LABS: Magnesium 3.3 mg/dL (1.8-2.4); Phosphorus 4.1 mg/dL (2.5-4.9); Potassium 4.5 mmol/L (3.5-5.1)
--- NOTE | 2019-03-29 13:36 | P.PN ---
Subjective Date of Service: 03/29/19 Chief Complaint: Shortness of breath Patient seen and examined at bedside. No family at bedside. Chart reviewed and case discussed with nursing staff. Patient is awaiting transfer to [facility]. No chest pain overnight. Review of Systems 10-point ROS is otherwise unremarkable Physical Examination - Vital Signs Temperature: 97.2 F Blood Pressure: 139/85 Pulse: 72 Respirations: 15 Pulse Ox (%): 96 - Physical Exam General: Alert, In no apparent distress HEENT: Atraumatic, PERRLA, EOMI Neck: Supple, JVD not distended Respiratory: Clear to auscultation bilaterally, Normal air movement Cardiovascular: Regular rate/rhythm, Normal S1 S2 Gastrointestinal: Normal bowel sounds, No tenderness Musculoskeletal: No tenderness Integumentary: No rashes Neurological: Normal speech, Normal tone, Normal affect Lymphatics: No axilla or inguinal lymphadenopathy - Studies Medications List Reviewed: Yes Assessment And Plan - Plan 1. Acute respiratory failure with hypoxia. Patient has been doing well on 2 L via nasal cannula. Secondary to CHF COPD. Appreciate pulmonology input. 2. Non ST elevation [place]. Continue with full-dose anticoagulation renally dosed. Continue chest pain guidelines. Patient needs cardiac catheterization once kidney function improves. Echocardiogram shows apical thrombus four- chamber dilatation EF of 20-25%. Patient continues to have episodic chest pain requiring nitro. Cardiology recommends transfer to [facility]. 3. Acute systolic heart failure exacerbation. Will continue with CHF guidelines appreciate Dr. Jaime's input. Monitor I/Os. Daily weight. Free fluid restriction. Chest CT personally reviewed shows bibasilar atelectasis and small effusions. Clinically improved 4. Acute COPD exacerbation. wean steroids. Continue nebulizer treatments. Improving. 5. Acute cystitis without hematuria. Patient's on Rocephin. Follow up on cultures 6. Acute on chronic kidney injury creatinine now improving. Nephrology on board. Monitor creatinine. Dialysis catheter placed. Dialysis held today as kidney function improved. 7. Peripheral vascular disease. Stable 8. Hyperphosphatemia. Secondary to worsening kidney disease. Monitor 9. Obesity BMI 33.9 DVT prophylaxis with Lovenox Overall poor prognosis Continue to monitor in ICU setting Cardiology recommends transfer to [facility] for CABG Discharge Plan: Pending transfer - bed availability.
[2019-03-29] MEDS: POLYETHYL GLY 3350 17 GM/DOSE PO PRN (14:04)
[2019-03-29] MEDS: ATORVASTATIN 80 MG TAB PO SCH (20:39)
--- NOTE | 2019-03-30 02:43 | PN ---
Date of Progress Note: 03/29/2019 Chief Complaint: Acute kidney injury, severe with high azotemia. The patient had catheter placed fo r dialysis access. The patient has nonoliguric urine output and the patient is awaiting cardiac cath eterization. Primarily he was found to have acute kidney injury, moderately severe, nonoliguric seco ndary to cardiorenal syndrome related to renal hypoperfusion complicated by acute tubular necrosis. The patient has associated hypervolemia and fluid overload with peripheral edema and CHF exacerbation . The patient was treated with diuretics. Renal function primarily declined and BUN was up to 106, creatinine 2.8. Renal function has improved somewhat since yesterday. The patient denies PND, orthopnea. Denies cough. Physical Examination: Lungs: Clear to auscultation bilaterally. Heart: S1, S2. Abdomen: Soft, benign. Extremities: Slight edema. Blood Work: Hemoglobin 14.6, WBC 10.2, platelet count is 159,000. Chemistries showed sodium 141, po tassium 4.5, CO2 is 51, chloride 99, BUN 75, creatinine 1.94, glucose 249, calcium 7.7, phosphorus 4. 1, magnesium 3.3. Impression And Plan: 1.Acute on chronic kidney injury, nonoliguric. Renal function has improved. Monitor electrolytes. The patient was treated with Lasix for congestive heart failure, cardiorenal syndrome. Continue low -sodium diet and adjust diuretics dose as needed. 2.Hyperphosphatemia. Monitor phosphorus level. The patient will continue low-phosphorus diet, carmelita tor phosphorus level. 3.Cardiorenal syndrome, congestive heart failure, fluid overload. Continue low-sodium diet and adva nced ultrafiltration with dialysis. At this point, dialysis is on hold. Renal function has improved somewhat. The patient needs to have cardiac catheterization for coronary artery disease and he will need dialysis afterwards. EB/MODL Voice ID: [id number] Report ID: [id number]
[2019-03-30 05:12] LABS: Phosphorus 3.3 mg/dL (2.5-4.9); Potassium 4.5 mmol/L (3.5-5.1)
[2019-03-30] MEDS: CARVEDILOL 3.125 MG TAB PO SCH ×2 (06:00→07:12)
[2019-03-30] MEDS: ARFORMOTEROL TARTRATE 15 MCG/2 ML VIAL.NEB NEB SCH (07:45)
[2019-03-30] MEDS: SEVELAMER CARBONATE 800 MG TABLET PO SCH (08:00)
[2019-03-30] MEDS: ENOXAPARIN 100 MG/ML SYR SQ SCH (09:00)
[2019-03-30] MEDS: CEFTRIAXONE/SWI 1gm 1 GM/10 ML SYR IV SCH (09:00)
[2019-03-30] MEDS: ASPIRIN EC 81 MG TAB PO SCH (09:15)
[2019-03-30] MEDS: FUROSEMIDE 40 MG/4 ML VIAL IV SCH (09:15)
[2019-03-30] MEDS: predniSONE 20 MG TAB PO SCH (09:16)
[2019-03-30] MEDS: DOCUSATE NA 100 MG CAP PO SCH (09:16)
[2019-03-30] MEDS: INSULIN -REGULAR HUMAN 50 UNIT/0.5 ML ML SQ SCH (09:16)
[2019-03-30 09:42] VITALS: O2SAT 100
[2019-03-30 11:46] VITALS: BP 123/81; TEMP 97.1
--- NOTE | 2019-03-30 12:07 | PN ---
Mr. Gonzales seems to be holding steady, not having worsening heart failure or angina symptoms. His creat inine is 1.64, so he has a dialysis catheter in place, but it actually has not been used. I am not s ure what to attribute the improved renal function to. In any event, our plan is still to transfer cole durand to a tertiary care medical center where he could undergo a cardiac cath and revascularization. KASANDRA/GISEL Voice ID: [id number] Report ID: [id number]
[2019-03-30 15:02] LABS: HIV AG/AB 4TH GEN Non-reactive (Non-reactive)
--- NOTE | 2019-03-30 16:30 | P.DS ---
Admission Date: 03/23/19 Discharge Date: 03/30/19 Disposition: TRANSFER TO [facility] Reason for Admission: Shortness of breath Consultations: Nephrology Cardiology Pulmonology Procedures: Temporary dialysis catheter placement. Brief History of Present Illness: The patient is a 73-year-old male with past medical history of CHF, coronary artery disease status post cardiac catheterization in 2017 along with COPD, hypertension, hyperlipidemia, and atrial fibrillation, who comes in with shortness of breath. The patient was in his usual state of health until several months prior when he started having progressive worsening of shortness of breath. The patient's symptoms are worse with exertion. Denies any fevers, chills, cough, no sputum production. Denies any ill contacts. The patient came into the ER due to acute worsening of his symptoms. Upon arrival, he was tachycardic, tachypneic, had to be placed on BiPAP due to respiratory distress. His imaging studies showed heart failure pattern. The patient received Lasix , breathing treatments, fentanyl for pain and was referred for admission. Dr. Santa had not contacted me directly. I spoke with Dr. Brandt this morning, who checked out the patient to id for admission. When seen in the ER, the patient was sedated due to fentanyl. Most of the HPI is obtained from previous medical records, ER staff, and from the patient himself. The patient appeared to be in respiratory distress on BiPAP. Hospital Course: Patient was admitted to the ICU. Cardiology, nephrology and pulmonology was consulted. Patient's respiratory status was managed with being placed on and off BiPAP. He was found to have NSTEMI, and he was started on full dose anticoagulation, renally dosed. Echocardiogram shows apical thrombus four- chamber dilatation EF of 20-25%. Patient continues to have episodic chest pain requiring nitro. Cardiology recommends transfer to [facility]. He also had YASSINE on CKD. A temporary dialysis catheter was placed, though it was not used as his kidney function improved. He was transferred to [facility] for further evaluation. Vital Signs/Physical Exam: Temp Pulse Resp BP Pulse Ox 97.1 F 72 15 123/81 97 03/30/19 08:00 03/30/19 10:00 03/30/19 10:00 03/30/19 10:00 03/30/19 10:00 General: Alert, In no apparent distress HEENT: Atraumatic, PERRLA, EOMI Neck: Supple, JVD not distended Respiratory: Clear to auscultation bilaterally, Normal air movement Cardiovascular: Irregular heart rate/rhythm Laboratory Data at Discharge: WBC 10.2 K/uL (4.3-10.9) D 03/29/19 05:00 Hgb 14.6 g/dL (13.6-17.9) 03/29/19 05:00 Hct 44.5 % (39.6-49.0) 03/29/19 05:00 Plt Count 159 K/uL (152-406) 03/29/19 05:00 PT 16.5 SECONDS (9.5-12.5) H 03/23/19 05:38 INR 1.42 03/23/19 05:38 Sodium 141 mmol/L (136-145) 03/30/19 04:37 Potassium 4.5 mmol/L (3.5-5.1) 03/30/19 04:37 BUN 70 mg/dL (7-18) H 03/30/19 04:37 Creatinine 1.64 mg/dL (0.55-1.3) H 03/30/19 04:37 Glucose 187 mg/dL (74-106) H 03/30/19 04:37 Phosphorus 3.3 mg/dL (2.5-4.9) 03/30/19 04:37 Magnesium 3.0 mg/dL (1.8-2.4) H 03/30/19 04:37 Total Bilirubin 1.6 mg/dL (0.2-1.0) H 03/23/19 05:38 AST 29 U/L (15-37) 03/23/19 05:38 ALT 28 U/L (12-78) 03/23/19 05:38 Alkaline Phosphatase 97 U/L (45-117) 03/23/19 05:38 Troponin I 6.70 ng/mL (0.0-0.045) H* 03/24/19 00:13 Triglycerides 95 mg/dL (<150) 03/24/19 04:50 Cholesterol 139 mg/dL (<200) 03/24/19 04:50 HDL Cholesterol 27 mg/dL (40-60) L 03/24/19 04:50 Cholesterol/HDL Ratio 5.15 03/24/19 04:50 Home Medications: Atorvastatin Calcium [Lipitor] 80 mg PO DAILY 09/28/18 Furosemide [Lasix] 80 mg PO BID 09/28/18 Budesonide/Formoterol Fumarate [Symbicort 80-4.5 Mcg Inhaler] 2 puff IH BID Rivaroxaban [Xarelto] 20 mg PO DAILY 03/23/19 Valsartan 80 mg PO DAILY 03/23/19 Time spent managing pt's care (in minutes): 45
[2019-04-01 02:53] LABS: HBsAG Nonreactive (Nonreactive)
[2019-04-01 21:27] LABS: Hep C Virus RNA (PCR)log <1.18 log IU/mL
== END 2019-03-30 10:20 | disposition short-term general hospital (02) | DRG 280 ==
LOC: ER 05:26 → ERHOLD 07:54 → 3RD-ICU 08:52 → 4TH 03-24 14:10 → 3RD-ICU 03-24 19:00
PROVIDERS: ADMIT Family Medicine; ATTEND Family Medicine
PROC: 02HV33Z Insertion of Infusion Device into Superior Vena Cava, Percutaneous Approach (ICD-10-PCS; 2019-03-27)
PROC: B5181ZA Fluoroscopy of Superior Vena Cava using Low Osmolar Contrast, Guidance (ICD-10-PCS; 2019-03-27)
PROC: 0JH60XZ Insertion of Tunneled Vascular Access Device into Chest Subcutaneous Tissue and Fascia, Open Approach (ICD-10-PCS; principal; 2019-03-27 09:24)
DX: I11.0 Hypertensive heart disease with heart failure (principal); J96.01 Acute respiratory failure with hypoxia; I21.4 Non-ST elevation (NSTEMI) myocardial infarction; N17.0 Acute kidney failure with tubular necrosis; J44.1 Chronic obstructive pulmonary disease with (acute) exacerbation; I74.09 Other arterial embolism and thrombosis of abdominal aorta; N30.00 Acute cystitis without hematuria; I50.23 Acute on chronic systolic (congestive) heart failure; I25.10 Atherosclerotic heart disease of native coronary artery without angina pectoris; B95.2 Enterococcus as the cause of diseases classified elsewhere; I48.91 Unspecified atrial fibrillation; E66.01 Morbid (severe) obesity due to excess calories; I73.9 Peripheral vascular disease, unspecified; E78.5 Hyperlipidemia, unspecified; E83.39 Other disorders of phosphorus metabolism; Z68.34 Body mass index [BMI] 34.0-34.9, adult; Z87.891 Personal history of nicotine dependence
CPT/HCPCS: 36415; 51702; 71045; 71250; 76000; 76770; 80048; 80061; 80069; 80076; 81003; 81015; 82570; 82805; 82962; 83520; 83735; 83880; 83970; 84100; 84156; 84484; 85025; 85610; 86021; 86038; 86160; 86317; 86430; 86704; 86705; 86706; 86803; 87040; 87077; 87086; 87088; 87186; 87340; 87389; 87522; 88108; 93005; 93306; 94640; 94660; 96372; 99285; C1752; J0171; J0696; J1644; J1650; J1940; J2270; J2370; J2405; J2704; J2920; J3010; J7512; J7605; J7606